=== PATIENT | male | born 1955 | race African-American/Black ===

== ENCOUNTER 2018-04-02 15:05 | Emergency (ER) | payer SELFPAY ==
--- NOTE | 2018-04-02 17:58 | Emergency Department Report ---
ED General Adult HPI - General Chief complaint: Abdominal Pain Stated complaint: CONSTIPATION Time Seen by Provider: 04/02/18 17:57 Source: patient, EMS Mode of arrival: Stretcher Limitations: No Limitations - History of Present Illness Initial comments: Patient is a 63-year-old male past medical history of chronic lymp leukemia who presents with abdominal pain and distention. Patient is 1013 for major depressive disorder. Patient has had constipation however he's been having abdominal distention and tenderness. He states he has had a bowel movement in some time. Sensation says pain is an achy type of pain located diffusely throughout his abdomen nothing makes the pain better and nothing makes pain worse. Patient states that he hasn't been able to urinate. He denies having any nausea or vomiting. - Related Data Previous Rx's Medication Instructions Recorded Last Taken Type Bisacodyl [Dulcolax tab] 10 mg PO DAILY #20 tablet 04/03/18 Unknown Rx Magnesium Citrate [Citrate of 296 ml PO ONCE #1 solution 04/03/18 Unknown Rx Magnesia] Allergies Allergy/AdvReac Type Severity Reaction Status Date / Time No Known Allergies Allergy Unverified 04/02/18 17:47 ED Review of Systems ROS: Stated complaint: CONSTIPATION Other details as noted in HPI Constitutional: denies: chills, fever Eyes: denies: eye pain, eye discharge, vision change ENT: denies: ear pain, throat pain Respiratory: denies: cough, shortness of breath, wheezing Cardiovascular: denies: chest pain, palpitations Endocrine: no symptoms reported Gastrointestinal: abdominal pain, constipation. denies: nausea, diarrhea Genitourinary: other (decrease in urination). denies: urgency, dysuria Musculoskeletal: denies: back pain, joint swelling, arthralgia Skin: denies: rash, lesions Neurological: denies: headache, weakness, paresthesias Psychiatric: denies: anxiety, depression Hematological/Lymphatic: denies: easy bleeding, easy bruising ED Past Medical Hx - Past Medical History Previous Medical History?: No - Surgical History Past Surgical History?: No - Social History Smoking Status: Former Smoker Substance Use Type: None - Medications Home Medications: Home Medications Medication Instructions Recorded Confirmed Last Taken Type Bisacodyl [Dulcolax tab] 10 mg PO DAILY #20 tablet 04/03/18 Unknown Rx Magnesium Citrate [Citrate of 296 ml PO ONCE #1 solution 04/03/18 Unknown Rx Magnesia] ED Physical Exam - General Limitations: No Limitations General appearance: alert, in no apparent distress - Head Head exam: Present: atraumatic, normocephalic - Eye Eye exam: Present: normal appearance - ENT ENT exam: Present: mucous membranes moist - Neck Neck exam: Present: normal inspection - Respiratory Respiratory exam: Present: normal lung sounds bilaterally. Absent: respiratory distress - Cardiovascular Cardiovascular Exam: Present: regular rate, normal rhythm. Absent: systolic murmur, diastolic murmur, rubs, gallop - GI/Abdominal GI/Abdominal exam: Present: distended, tenderness - Rectal Rectal exam: Present: deferred - Extremities Exam Extremities exam: Present: normal inspection - Back Exam Back exam: Present: normal inspection - Neurological Exam Neurological exam: Present: alert, oriented X3 - Psychiatric Psychiatric exam: Present: other (blunted affect ) - Skin Skin exam: Present: warm, dry, intact, normal color. Absent: rash ED Course Vital Signs 04/02/18 17:47 Temperature 98.3 F Pulse Rate 66 Respiratory 16 Rate Blood Pressure 118/78 O2 Sat by Pulse 98 Oximetry ED Medical Decision Making - Lab Data Result diagrams: 04/02/18 18:08 04/02/18 18:08 Lab Results 04/02/18 04/02/18 Range/Units 18:08 18:08 WBC 13.3 H (4.5-11.0) K/mm3 RBC 3.62 L (3.65-5.03) M/mm3 Hgb 11.1 L (11.8-15.2) gm/dl Hct 32.4 L (35.5-45.6) % MCV 90 (84-94) fl MCH 31 (28-32) pg MCHC 34 (32-34) % RDW 13.9 (13.2-15.2) % Plt Count 118 L (140-440) K/mm3 Lymph % (Auto) Control Board Operator Lymph # Control Board Operator Seg Neutrophils % Control Board Operator Sodium 127 L (137-145) mmol/L Potassium 4.0 (3.6-5.0) mmol/L Chloride 90.9 L (98-107) mmol/L Carbon Dioxide 20 L (22-30) mmol/L Anion Gap 20 mmol/L BUN 12 (9-20) mg/dL Creatinine 0.4 L (0.8-1.5) mg/dL Estimated GFR > 60 ml/min BUN/Creatinine Ratio 30 % Glucose 118 H (75-100) mg/dL Calcium 9.0 (8.4-10.2) mg/dL Total Bilirubin 0.70 (0.1-1.2) mg/dL AST 13 (5-40) units/L ALT 23 (7-56) units/L Alkaline Phosphatase 81 (35-129) units/L Total Protein 6.5 (6.3-8.2) g/dL Albumin 4.2 (3.9-5) g/dL Albumin/Globulin Ratio 1.8 % Lipase 36 (13-60) units/L - Radiology Data Radiology results: report reviewed, image reviewed CT scan: Shows significant fecal impaction and constipation. - Medical Decision Making Chief medical diagnosis: Constipation Differential medical diagnosis: Appendicitis, ruptured viscus I will get CBC, CMP, CT scan, IV pain medicine CT scan is consistent with constipation PATIENT Kim tray and I'll give patient and I will give patient laxatives. Critical care attestation.: If time is entered above; I have spent that time in minutes in the direct care of this critically ill patient, excluding procedure time. ED Disposition Clinical Impression: Abdominal pain Qualifiers: Abdominal location: generalized Qualified Code(s): R10.84 - Generalized abdominal pain Constipation Qualifiers: Constipation type: unspecified constipation type Qualified Code(s): K59.00 - Constipation, unspecified Disposition: DC-01 TO HOME OR SELFCARE Is pt being admited?: No Does the pt Need Aspirin: No Condition: Stable Instructions: Constipation (ED), High Fiber Diet (ED) Prescriptions: Bisacodyl [Dulcolax tab] 10 mg PO DAILY #20 tablet Magnesium Citrate [Citrate of Magnesia] 296 ml PO ONCE #1 solution Referrals: PRIMARY CARE, [Primary Care Provider] - 3-5 Days
[2018-04-02 18:33] LABS: Hematocrit 32.4 % (35.5-45.6); Hemoglobin 11.1 gm/dl (11.8-15.2); Mean Corpuscular HGB Conc 34 % (32-34); Mean Corpuscular Hemoglobin 31 pg (28-32); Mean Corpuscular Volume 90 fl (84-94); Platelet Count 118 K/mm3 (140-440); Red Blood Count 3.62 M/mm3 (3.65-5.03); Red Cell Distribution Width 13.9 % (13.2-15.2)
[2018-04-02 18:58] LABS: Alanine Aminotransferase 23 units/L (7-56); Albumin 4.2 g/dL (3.9-5); BUN/Creatinine Ratio 30; Blood Urea Nitrogen 12 mg/dL (9-20); Hemolysis Index 2
[2018-04-02 19:41] LABS: Lipase 36 units/L (13-60)
[2018-04-02] MEDS ORDERED: TORADOL IV ONE (19:51)
[2018-04-02 20:08] LABS: Total Cells Counted 100
[2018-04-02 20:09] LABS: Basophils % (Manual) 0 % (0.0-1.8); Platelet Estimate Consistent w Auto; RBC Morphology Normal
[2018-04-02] MEDS ORDERED: REGLAN IV ONE (20:38)
[2018-04-02] MEDS ORDERED: BENADRYL IV ONE (20:38)
[2018-04-02] MEDS: NACL 0.9% 250 ML ONE ×2 (21:32→23:53)
--- NOTE | 2018-04-02 22:36 | Cat Scan Report ---
FINAL REPORT EXAM: CT ABDOMEN PELVIS W CON HISTORY: abdominal distension and abdominal tenderness TECHNIQUE: Standard enhanced CT of the abdomen and pelvis. Coronal and sagittal reconstruction was also performed. Delayed imaging through the abdomen and pelvis was a performed. Contrast: 100 mL Omnipaque 300 given IV. PRIORS: None. FINDINGS: There is significant stool in the ascending colon and rectum which can be associated with fecal impaction. There is redundancy of the colon with mild distension, however, and not abnormal in appearance. Within the abdomen, the liver multiple tiny subcentimeter hypodensities are scattered in the liver. These are likely cysts but too small to characterize. The spleen, pancreas, gallbladder, adrenal glands, and right kidney are unremarkable. There is an exophytic 1.6 cm hypodense rounded focus off the midpole left kidney, likely a cyst. No evidence for retroperitoneal or pelvic lymphadenopathy is seen. The small bowel loops have normal caliber. No soft tissue mass, fluid collection, inflammatory change, or free air is seen within the abdomen or pelvis. The appendix is not visualized. Moderate calcification of the aorta is seen. Within the pelvis, the bladder is overly distended extending to the level of the umbilicus. The prostate is normal. No evidence for mass or lymphadenopathy is seen in the pelvis. Images through the upper abdomen include the lung bases which are expanded and clear. There is an 11 mm calcified granuloma in the right lateral costophrenic angle. Bony structures show no focal abnormalities and are intact. IMPRESSION: 1. Over distention of the urinary bladder extending to the level of the umbilicus. Etiology is uncertain. 2. Significant stool in the rectum which can be associated with fecal impaction. There is also significant stool in the ascending colon. 3. Cyst in the left kidney 4. Hypodensities in the liver, likely cysts.
[2018-04-03] MEDS ORDERED: NACL 0.9% 250ML 250 ML ONE (00:01)
[2018-04-03] MEDS ORDERED: CITRATE OF MAGNESIA PO ONE (00:09)
[2018-04-03] MEDS ORDERED: DULCOLAX PO ONE (00:12)
[2018-04-03] MEDS ORDERED: NACL 0.9% 250ML 250 ML IV ONE (02:38)
[2018-04-03 03:47] VITALS: BP 118/73
== END 2018-04-03 03:46 | disposition home or self-care (01) ==
LOC: ED 15:05
DX: K59.00 Constipation, unspecified (principal); Z87.891 Personal history of nicotine dependence
CPT/HCPCS: 36415; 74177; 80053; 83690; 85007; 85025; 96374; 96375; 99284; J1200; J1885; J7050; Q9967; J2765

== ENCOUNTER 2018-04-06 19:32 | Inpatient (IN) | payer OTHER ==
[2018-04-06] MEDS ORDERED: ZOFRAN IV ONE (19:51)
[2018-04-06] MEDS ORDERED: NACL 0.9% 500 ML 500 ML IV ONE (19:51)
[2018-04-06] MEDS ORDERED: PROTONIX IV ONE (19:51)
--- NOTE | 2018-04-06 19:51 | Emergency Department Report ---
ED Abdominal Pain HPI - General Chief Complaint: Abdominal Pain Stated Complaint: ABD PAIN Time Seen by Provider: 04/06/18 19:47 Source: patient, EMS Mode of arrival: Stretcher Limitations: Language Barrier - History of Present Illness Initial Comments: Patient complain of abdominal pain and diarrhea. He denies any nausea or vomiting. He also has loss of appetite. MD Complaint: abdominal pain -: Gradual Location: diffuse Radiation: none Migration to: no migration Severity: severe Severity scale (0 -10): 8 Quality: cramping, sharp Consistency: constant Improves With: nothing Worsens With: nothing Associated Symptoms: diarrhea. denies: nausea, vomiting, fever, chills - Related Data Home Medications Medication Instructions Recorded Confirmed Last Taken Colace Clear 200 mg PO DAILY 04/06/18 04/06/18 Unknown Ibuprofen 600 mg PO DAILY 04/06/18 04/06/18 Unknown Imbruvica 420 mg PO DAILY 04/06/18 04/06/18 Unknown Naproxen 500 mg PO BID 04/06/18 04/06/18 Unknown Tamsulosin 0.4 mg PO DAILY 04/06/18 04/06/18 Unknown Zoloft 50 mg PO DAILY 04/06/18 04/06/18 Unknown traZODone 150 mg PO HS 04/06/18 04/06/18 Unknown Allergies Allergy/AdvReac Type Severity Reaction Status Date / Time No Known Allergies Allergy Unverified 04/02/18 17:47 ED Review of Systems ROS: Stated complaint: ABD PAIN Other details as noted in HPI Comment: All other systems reviewed and negative Constitutional: denies: chills, fever Eyes: denies: eye pain ENT: denies: ear pain, throat pain Respiratory: denies: cough, shortness of breath, SOB with exertion Cardiovascular: denies: chest pain, palpitations Endocrine: no symptoms reported Gastrointestinal: abdominal pain, diarrhea. denies: nausea, vomiting, hematochezia Genitourinary: denies: urgency, dysuria Musculoskeletal: denies: back pain, joint swelling Skin: denies: rash, lesions Neurological: denies: headache, weakness, numbness Psychiatric: denies: anxiety, depression Hematological/Lymphatic: denies: easy bleeding, easy bruising ED Past Medical Hx - Social History Smoking Status: Former Smoker Substance Use Type: None - Medications Home Medications: Home Medications Medication Instructions Recorded Confirmed Last Taken Type Colace Clear 200 mg PO DAILY 04/06/18 04/06/18 Unknown History Ibuprofen 600 mg PO DAILY 04/06/18 04/06/18 Unknown History Imbruvica 420 mg PO DAILY 04/06/18 04/06/18 Unknown History Naproxen 500 mg PO BID 04/06/18 04/06/18 Unknown History Tamsulosin 0.4 mg PO DAILY 04/06/18 04/06/18 Unknown History Zoloft 50 mg PO DAILY 04/06/18 04/06/18 Unknown History traZODone 150 mg PO HS 04/06/18 04/06/18 Unknown History ED Physical Exam - General Limitations: No Limitations General appearance: alert, in no apparent distress - Head Head exam: Present: atraumatic, normocephalic, normal inspection - Eye Eye exam: Present: normal appearance, PERRL, EOMI Pupils: Present: normal accommodation - ENT ENT exam: Present: normal exam, normal orophraynx, mucous membranes moist - Neck Neck exam: Present: normal inspection, full ROM. Absent: tenderness - Respiratory Respiratory exam: Present: normal lung sounds bilaterally. Absent: respiratory distress, wheezes, rales, rhonchi, stridor - Cardiovascular Cardiovascular Exam: Present: regular rate, normal rhythm, normal heart sounds - GI/Abdominal GI/Abdominal exam: Present: soft, tenderness, guarding, rebound, hyperactive bowel sounds. Absent: distended - Rectal Rectal exam: Present: heme (-) stool, other ([place] was Ms. Lisbeth RN.) - Extremities Exam Extremities exam: Present: normal inspection, full ROM, normal capillary refill - Back Exam Back exam: Present: normal inspection, full ROM. Absent: tenderness - Neurological Exam Neurological exam: Present: alert, oriented X3, CN II-XII intact - Psychiatric Psychiatric exam: Present: normal affect, normal mood - Skin Skin exam: Present: warm, dry, intact, normal color. Absent: rash ED Course Vital Signs 04/06/18 04/06/18 04/06/18 19:28 19:30 19:45 Temperature Pulse Rate 83 85 86 Respiratory 23 17 24 Rate Blood Pressure 105/67 109/69 O2 Sat by Pulse 98 97 97 Oximetry 04/06/18 04/06/18 04/06/18 19:55 20:00 20:15 Temperature 98.4 F Pulse Rate 82 81 79 Respiratory 18 17 11 L Rate Blood Pressure 105/67 109/69 102/69 O2 Sat by Pulse 98 96 97 Oximetry 04/06/18 04/06/18 04/06/18 20:30 20:46 21:00 Temperature Pulse Rate 77 79 73 Respiratory 15 20 17 Rate Blood Pressure 102/69 102/69 122/71 O2 Sat by Pulse 97 98 99 Oximetry 04/06/18 04/06/18 04/06/18 21:15 21:30 21:45 Temperature Pulse Rate 78 77 79 Respiratory 14 14 17 Rate Blood Pressure 122/68 122/68 106/70 O2 Sat by Pulse 98 97 98 Oximetry 04/06/18 04/06/18 04/06/18 22:00 22:15 22:30 Temperature Pulse Rate 77 78 76 Respiratory 17 15 11 L Rate Blood Pressure 115/65 108/65 105/66 O2 Sat by Pulse 97 98 97 Oximetry 04/06/18 04/06/18 04/06/18 22:35 22:45 22:54 Temperature Pulse Rate 78 81 78 Respiratory 10 L 14 13 Rate Blood Pressure 105/66 107/72 105/66 O2 Sat by Pulse 98 98 98 Oximetry 04/06/18 04/06/18 04/06/18 23:00 23:15 23:30 Temperature Pulse Rate 82 79 89 Respiratory 18 14 13 Rate Blood Pressure 105/66 120/68 120/68 O2 Sat by Pulse 97 96 99 Oximetry 04/06/18 04/07/18 04/07/18 23:45 00:00 00:15 Temperature Pulse Rate 87 82 Respiratory 21 21 14 Rate Blood Pressure 106/68 122/54 123/69 O2 Sat by Pulse 98 97 98 Oximetry 04/07/18 04/07/18 04/07/18 00:30 00:45 01:00 Temperature Pulse Rate 80 77 80 Respiratory 15 15 18 Rate Blood Pressure 113/68 114/70 114/68 O2 Sat by Pulse 98 97 98 Oximetry 04/07/18 04/07/18 04/07/18 01:15 01:30 02:20 Temperature Pulse Rate 71 78 Respiratory 13 20 Rate Blood Pressure 103/62 114/68 116/72 O2 Sat by Pulse 94 99 98 Oximetry 04/07/18 04/07/18 04/07/18 02:30 02:46 03:00 Temperature Pulse Rate 83 89 81 Respiratory 24 25 H 22 Rate Blood Pressure 97/63 97/63 97/63 O2 Sat by Pulse 98 96 98 Oximetry 04/07/18 04/07/18 04/07/18 03:16 03:30 03:46 Temperature Pulse Rate 81 73 71 Respiratory 26 H 14 16 Rate Blood Pressure 97/63 97/63 97/63 O2 Sat by Pulse 98 98 95 Oximetry 04/07/18 04/07/18 04/07/18 04:00 04:16 04:30 Temperature Pulse Rate 83 77 74 Respiratory 21 15 16 Rate Blood Pressure 116/69 116/69 116/69 O2 Sat by Pulse 98 98 97 Oximetry 04/07/18 04/07/18 04/07/18 04:46 05:00 05:16 Temperature Pulse Rate 75 74 76 Respiratory 16 15 13 Rate Blood Pressure 116/69 105/61 105/61 O2 Sat by Pulse 97 95 96 Oximetry 04/07/18 04/07/18 04/07/18 05:30 05:46 06:00 Temperature Pulse Rate 83 81 76 Respiratory 19 22 21 Rate Blood Pressure 105/61 105/61 96/69 O2 Sat by Pulse 98 98 98 Oximetry 04/07/18 04/07/18 06:10 06:20 Temperature Pulse Rate 75 80 Respiratory 20 25 H Rate Blood Pressure 96/69 96/69 O2 Sat by Pulse 98 96 Oximetry - Reevaluation(s) Reevaluation #1: 04/07/18 02:49 Patient care was transitioned to Dr Mcbride at shift change pending CT scan of abdomen and pelvis result prior to admission. ED Medical Decision Making - Lab Data Result diagrams: 04/06/18 20:05 04/06/18 20:05 - EKG Data -: EKG Interpreted by Nh EKG shows normal: sinus rhythm Rate: normal (78) - EKG Data When compared to previous EKG there are: previous EKG unavailable Interpretation: nonspecific ST-T wave rebekah, other (No STEMI) - Radiology Data Radiology results: report reviewed, image reviewed - Medical Decision Making Abdominal pain Critical care attestation.: If time is entered above; I have spent that time in minutes in the direct care of this critically ill patient, excluding procedure time. ED Disposition Clinical Impression: Acute hyponatremia, Urinary retention Abdominal pain Qualifiers: Abdominal location: generalized Qualified Code(s): R10.84 - Generalized abdominal pain Diarrhea Qualifiers: Diarrhea type: unspecified type Qualified Code(s): R19.7 - Diarrhea, unspecified Disposition: DC-09 OP ADMIT IP TO THIS HOSP Is pt being admited?: Yes Does the pt Need Aspirin: No Condition: Stable
[2018-04-06 20:27] LABS: Hematocrit 30.4 % (35.5-45.6); Mean Corpuscular HGB Conc 33 % (32-34); Mean Corpuscular Hemoglobin 30 pg (28-32); Mean Corpuscular Volume 91 fl (84-94); Platelet Count 116 K/mm3 (140-440); Red Blood Count 3.35 M/mm3 (3.65-5.03); Red Cell Distribution Width 13.8 % (13.2-15.2)
[2018-04-06 20:35] LABS: INR 0.94 (0.87-1.13)
[2018-04-06 20:47] LABS: Alanine Aminotransferase 13 units/L (7-56); Albumin 3.7 g/dL (3.9-5); BUN/Creatinine Ratio 25; Blood Urea Nitrogen 20 mg/dL (9-20); Hemolysis Index 7; Lipase 46 units/L (13-60)
[2018-04-06 21:05] LABS: Bilirubin,Direct < 0.2 mg/dL (0-0.2)
[2018-04-06] MEDS ORDERED: SUBLIMAZE IV ONE (21:34)
[2018-04-06 21:55] LABS: Amorphous Crystals,Urine Few; Bilirubin,Urine NEG (Negative); Blood,Urine LG (Negative); Color,Urine Yellow (Yellow); Mucus,Urine FEW /HPF; Protein,Urine <15 mg/dL mg/dL (Negative); Urobilinogen,Urine < 2.0 mg/dL (<2.0)
[2018-04-06 22:04] LABS: Anisocytosis 1+; Basophils % (Manual) 0 % (0.0-1.8); Eosinophils % (Manual) 0 % (0.0-4.3); Poikilocytosis 1+; Total Cells Counted 100
[2018-04-06 22:05] LABS: Platelet Estimate Consistent w Auto
[2018-04-06] MEDS ORDERED: NACL 0.9% 1000 ML 1,000 ML IV ONE (23:08)
--- NOTE | 2018-04-06 23:15 | XRay Report ---
FINAL REPORT PROCEDURE: XR ABDOMEN 1V AP TECHNIQUE: Abdominal radiograph, single supine AP view. HISTORY: Abdominal Pain COMPARISON: No prior studies are available for comparison. FINDINGS: A large soft tissue density is noted in the pelvis and lower abdomen midline. Multiple gas-filled nondistended loops of small and large bowel are noted. There are no abnormal radiopaque densities. IMPRESSION: Large soft tissue density mass in the central pelvis and lower abdomen most likely represents grossly distended urinary bladder. Nonspecific intestinal gas pattern
--- NOTE | 2018-04-06 23:17 | XRay Report ---
FINAL REPORT PROCEDURE: XR CHEST 1V AP TECHNIQUE: Chest radiograph anteroposterior view. CPT 36300 HISTORY: Abdominal Pain COMPARISON: No prior studies are available for comparison. FINDINGS: Heart: Normal. Mediastinum/Vessels: Normal. Lungs/Pleural space: Normal. Bony thorax: No acute osseous abnormality. Life support devices: None. IMPRESSION: No acute cardiopulmonary abnormality.
[2018-04-07] MEDS ORDERED: NACL 0.9% 500 ML 500 ML ONE (01:28)
[2018-04-07] MEDS ORDERED: NACL 0.9% 500 ML 500 ML IV ONE (01:36)
--- NOTE | 2018-04-07 02:50 | Cat Scan Report ---
FINAL REPORT PROCEDURE: CT ABDOMEN PELVIS W CON TECHNIQUE: Computerized axial tomography of the abdomen and pelvis was performed after the IV injection of iodinated nonionic contrast. Oral contrast. HISTORY: Abdominal pain. COMPARISON: CT scan dated 04/02/2018. FINDINGS: Visualized lower thorax: Mild cardiomegaly. Mild three-vessel coronary artery disease. Liver: Subcentimeter areas of low attenuation in the liver, predominantly left lobe as on prior study.. Spleen: Normal size and attenuation. Gallbladder and biliary system: Normal. Pancreas: Normal. Adrenals: Normal. Kidneys: Exophytic 15 mm low-attenuation lesion off the midpole of the left kidney. Mild bilateral hydronephrosis. GI tract: Subtle outpouching of the gastroesophageal junction. Thickening of the distal stomach wall. Oral contrast seen to the rectum. Normal appendix. Colon is moderately distended with stool. Mild thickening of the rectosigmoid colon. Lymph nodes and mesentery: Subcentimeter pre cardiac, retroperitoneal, and a few mesenteric lymph nodes. Vasculature: Moderate atherosclerosis. Bladder: Bladder is distended to above the level of the umbilicus. Reproductive organs: Normal. Peritoneum: No free fluid. Musculoskeletal structures: Mild osteopenia. Multilevel disc space narrowing and osteophytes. Slight wedge compression at the thoracic lumbar junction. Other: Fat filled umbilical hernia. IMPRESSION: Bladder is significantly distended as on prior study, consider neurogenic bladder and/or bladder outlet obstruction. Mild bilateral hydronephrosis, may be related to bladder distension. Consider attention on followup exam. Cardiomegaly. Three-vessel coronary artery disease. Low-attenuation liver lesions unchanged. Low-attenuation renal lesions, may represent cysts. Consider confirmation with renal ultrasound if there is continued clinical concern. Subtle outpouching of the gastroesophageal junction, consider small diverticulum or possibly ulceration. Thickening of the distal stomach wall, consider mild gastritis. Consider fluoroscopic examination or endoscopy if there is continued clinical concern. Colon is moderately distended with stool, consider constipation and/or fecal impaction. Mild thickening of the rectosigmoid colon, consider mild colitis/proctitis. Fat filled umbilical hernia.
[2018-04-07] MEDS ORDERED: LEVAQUIN 750MG/150ML 750 MG/150 ML BAG IV ONE (04:53)
[2018-04-07] MEDS ORDERED: FLAGYL 500 MG/100 ML 500 MG/100 ML BAG IV SCH (05:00)
[2018-04-07] MEDS: HEPARIN SUB-Q SCH ×3 (06:05→23:44)
--- NOTE | 2018-04-07 09:17 | History and Physical Report ---
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 Patient said the diarrhea is massive couldn't count because he is using diaper. Patient is also complaining abdominal bloating, abdominal pain. Pain is on the mid abdomen. Squeezing type, 10 out of 10 in intensity, with no radiation, no aggravating or alleviating factors identified. Patient said he took antibiotics after the start of area with some relief. Patient didn't have any recent travel to [place] ([place] Patient said he has fever. REVIEW OF SYSTEMS: GENERAL: no weight change, no fatigue, no fever HEAD: no head ache EYES: no blurry vision, no acute visual loss EARS: no hearing loss, no discharge, no earache NOSE: no stuffiness, no sneezing, no discharge MOUTH, THROAT AND NECK: no bleeding gums, no sore throat, no swollen neck CARDIAC: no palpitations, no dyspnea on exertion, no orthopnea, no PND, no edema , no chest pain RESPIRATORY: no shortness of breath, no wheeze, no cough, no sputum, no hemoptysis, no asthma GI: As stated in the HPI URINARY: no change in frequency, no urgency, no polyuria, no hematuria, no incontinence MUSCULOSKELETAL: no muscle weakness, no pain, no joint stiffness NEUROLOGIC: no loss of sensation/numbness, no tingling, no tremors, no weakness/ paralysis HEMATOLOGIC: no anemia, no easy bruising SKIN: no rashes ENDOCRINE: no heat/cold intolerance, no polyuria, no polydipsia, no thyroid problems, no diabetes PSYCHIATRIC: no anxiety, no depression, no suicidal ideations Past History Past Medical History: No medical history Past Surgical History: No surgical history Social history: full code. denies: smoking, alcohol abuse, prescription drug abuse, IV drug use Family history: no significant family history Medications and Allergies Allergies Allergy/AdvReac Type Severity Reaction Status Date / Time No Known Allergies Allergy Unverified 04/02/18 17:47 Home Medications Medication Instructions Recorded Confirmed Last Taken Type Colace Clear 200 mg PO DAILY 04/06/18 04/06/18 Unknown History Ibuprofen 600 mg PO DAILY 04/06/18 04/06/18 Unknown History Imbruvica 420 mg PO DAILY 04/06/18 04/06/18 Unknown History Naproxen 500 mg PO BID 04/06/18 04/06/18 Unknown History Tamsulosin 0.4 mg PO DAILY 04/06/18 04/06/18 Unknown History Zoloft 50 mg PO DAILY 04/06/18 04/06/18 Unknown History traZODone 150 mg PO HS 04/06/18 04/06/18 Unknown History Active Meds: Active Medications Heparin Sodium (Porcine) (Heparin) 5,000 unit SUB-Q Q8HR LUCI Last Admin: 04/07/18 06:05 Dose: 5,000 unit Exam - Constitutional Vitals: Temp Pulse Resp BP Pulse Ox 98.2 F 74 18 102/59 98 04/07/18 06:59 04/07/18 06:59 04/07/18 06:59 04/07/18 06:59 04/07/18 06:59 Results - Labs CBC & Chem 7: 04/06/18 20:05 04/06/18 20:05 Labs: Laboratory Last Values WBC 11.0 K/mm3 (4.5-11.0) 04/06/18 20:05 RBC 3.35 M/mm3 (3.65-5.03) L 04/06/18 20:05 Hgb 10.0 gm/dl (11.8-15.2) L 04/06/18 20:05 Hct 30.4 % (35.5-45.6) L 04/06/18 20:05 MCV 91 fl (84-94) 04/06/18 20:05 MCH 30 pg (28-32) 04/06/18 20:05 MCHC 33 % (32-34) 04/06/18 20:05 RDW 13.8 % (13.2-15.2) 04/06/18 20:05 Plt Count 116 K/mm3 (140-440) L 04/06/18 20:05 Lymph # Video Game Repair Technician 04/06/18 20:05 Add Manual Diff Complete 04/06/18 20:05 Total Counted 100 04/06/18 20:05 Seg Neuts % (Manual) 43.0 % (40.0-70.0) 04/06/18 20:05 Band Neutrophils % 0 % 04/06/18 20:05 Lymphocytes % (Manual) 55.0 % (13.4-35.0) H 04/06/18 20:05 Reactive Lymphs % (Man) 0 % 04/06/18 20:05 Monocytes % (Manual) 2.0 % (0.0-7.3) 04/06/18 20:05 Eosinophils % (Manual) 0 % (0.0-4.3) 04/06/18 20:05 Basophils % (Manual) 0 % (0.0-1.8) 04/06/18 20:05 Metamyelocytes % 0 % 04/06/18 20:05 Myelocytes % 0 % 04/06/18 20:05 Promyelocytes % 0 % 04/06/18 20:05 Blast Cells % 0 % 04/06/18 20:05 Nucleated RBC % Not Reportable 04/06/18 20:05 Seg Neutrophils # Man 4.7 K/mm3 (1.8-7.7) 04/06/18 20:05 Band Neutrophils # 0.0 K/mm3 04/06/18 20:05 Lymphocytes # (Manual) 6.1 K/mm3 (1.2-5.4) H 04/06/18 20:05 Abs React Lymphs (Man) 0.0 K/mm3 04/06/18 20:05 Monocytes # (Manual) 0.2 K/mm3 (0.0-0.8) 04/06/18 20:05 Eosinophils # (Manual) 0.0 K/mm3 (0.0-0.4) 04/06/18 20:05 Basophils # (Manual) 0.0 K/mm3 (0.0-0.1) 04/06/18 20:05 Metamyelocytes # 0.0 K/mm3 04/06/18 20:05 Myelocytes # 0.0 K/mm3 04/06/18 20:05 Promyelocytes # 0.0 K/mm3 04/06/18 20:05 Blast Cells # 0.0 K/mm3 04/06/18 20:05 WBC Morphology Not Reportable 04/06/18 20:05 Hypersegmented Neuts Not Reportable 04/06/18 20:05 Hyposegmented Neuts Not Reportable 04/06/18 20:05 Hypogranular Neuts Not Reportable 04/06/18 20:05 Smudge Cells Not Reportable 04/06/18 20:05 Toxic Granulation Not Reportable 04/06/18 20:05 Toxic Vacuolation Not Reportable 04/06/18 20:05 Dohle Bodies Not Reportable 04/06/18 20:05 Pelger-Huet Anomaly Not Reportable 04/06/18 20:05 Rosario Rods Not Reportable 04/06/18 20:05 Platelet Estimate Consistent w auto 04/06/18 20:05 Clumped Platelets Not Reportable 04/06/18 20:05 Plt Clumps, EDTA Not Reportable 04/06/18 20:05 Large Platelets Not Reportable 04/06/18 20:05 Giant Platelets Not Reportable 04/06/18 20:05 Platelet Satelliting Not Reportable 04/06/18 20:05 Plt Morphology Comment Not Reportable 04/06/18 20:05 RBC Morphology Not Reportable 04/06/18 20:05 Dimorphic RBCs Not Reportable 04/06/18 20:05 Polychromasia Not Reportable 04/06/18 20:05 Hypochromasia Not Reportable 04/06/18 20:05 Poikilocytosis 1+ 04/06/18 20:05 Anisocytosis 1+ 04/06/18 20:05 Microcytosis Not Reportable 04/06/18 20:05 Macrocytosis Not Reportable 04/06/18 20:05 Spherocytes Not Reportable 04/06/18 20:05 Pappenheimer Bodies Not Reportable 04/06/18 20:05 Sickle Cells Not Reportable 04/06/18 20:05 Target Cells Not Reportable 04/06/18 20:05 Tear Drop Cells Not Reportable 04/06/18 20:05 Ovalocytes Not Reportable 04/06/18 20:05 Helmet Cells Not Reportable 04/06/18 20:05 [place] Bodies Not Reportable 04/06/18 20:05 [place] Rings Not Reportable 04/06/18 20:05 Sahil Cells Not Reportable 04/06/18 20:05 Bite Cells Not Reportable 04/06/18 20:05 Crenated Cell Not Reportable 04/06/18 20:05 Elliptocytes Not Reportable 04/06/18 20:05 Acanthocytes (Spur) Not Reportable 04/06/18 20:05 Rouleaux Not Reportable 04/06/18 20:05 Hemoglobin C Crystals Not Reportable 04/06/18 20:05 Schistocytes Not Reportable 04/06/18 20:05 Malaria parasites Not Reportable 04/06/18 20:05 Tristan Bodies Not Reportable 04/06/18 20:05 Hem Pathologist Commnt No 04/06/18 20:05 PT 13.1 Sec. (12.2-14.9) 04/06/18 20:05 INR 0.94 (0.87-1.13) 04/06/18 20:05 Sodium 126 mmol/L (137-145) L 04/06/18 20:05 Potassium 3.9 mmol/L (3.6-5.0) 04/06/18 20:05 Chloride 87.7 mmol/L (98-107) L 04/06/18 20:05 Carbon Dioxide 21 mmol/L (22-30) L 04/06/18 20:05 Anion Gap 21 mmol/L 04/06/18 20:05 BUN 20 mg/dL (9-20) 04/06/18 20:05 Creatinine 0.8 mg/dL (0.8-1.5) D 04/06/18 20:05 Estimated GFR > 60 ml/min 04/06/18 20:05 BUN/Creatinine Ratio 25 % 04/06/18 20:05 Glucose 119 mg/dL (75-100) H 04/06/18 20:05 Calcium 9.0 mg/dL (8.4-10.2) 04/06/18 20:05 Total Bilirubin 0.50 mg/dL (0.1-1.2) 04/06/18 20:05 Direct Bilirubin < 0.2 mg/dL (0-0.2) 04/06/18 20:05 Indirect Bilirubin 0.3 mg/dL 04/06/18 20:05 AST 12 units/L (5-40) 04/06/18 20:05 ALT 13 units/L (7-56) 04/06/18 20:05 Alkaline Phosphatase 74 units/L (35-129) 04/06/18 20:05 Troponin T < 0.010 ng/mL (0.00-0.029) 04/06/18 21:38 NT-Pro-B Natriuret Pep 44.32 pg/mL (0-900) 04/06/18 20:05 Total Protein 6.2 g/dL (6.3-8.2) L 04/06/18 20:05 Albumin 3.7 g/dL (3.9-5) L 04/06/18 20:05 Albumin/Globulin Ratio 1.5 % 04/06/18 20:05 Amylase 54 units/L (27-131) 04/06/18 20:05 Lipase 46 units/L (13-60) 04/06/18 20:05 Urine Color Yellow (Yellow) 04/06/18 21:14 Urine Turbidity Slightly-cloudy (Clear) 04/06/18 21:14 Urine pH 6.0 (5.0-7.0) 04/06/18 21:14 Ur Specific [place] 1.016 (1.003-1.030) 04/06/18 21:14 Urine Protein <15 mg/dl mg/dL (Negative) 04/06/18 21:14 Urine Glucose (UA) Neg mg/dL (Negative) 04/06/18 21:14 Urine Ketones Neg mg/dL (Negative) 04/06/18 21:14 Urine Blood Lg (Negative) 04/06/18 21:14 Urine Nitrite Neg (Negative) 04/06/18 21:14 Urine Bilirubin Neg (Negative) 04/06/18 21:14 Urine Urobilinogen < 2.0 mg/dL (<2.0) 04/06/18 21:14 Ur Leukocyte Esterase Neg (Negative) 04/06/18 21:14 Urine WBC (Auto) 4.0 /HPF (0.0-6.0) 04/06/18 21:14 Urine RBC (Auto) 37.0 /HPF (0.0-6.0) 04/06/18 21:14 U Epithel Cells (Auto) < 1.0 /HPF (0-13.0) 04/06/18 21:14 Amorphous Crystals Few 04/06/18 21:14 Urine Mucus Few /HPF 04/06/18 21:14 Assessment and Plan Assessment and plan: 39-year-old male presented to the emergency department complaining of diarrhea of one month duration. Patient is complaining of abdominal pain and nausea. CT abdomen shows colitis/prostatitis, and bladder distention Diarrhea colitis - on IV flagyl and levaquin Hyponatremia - On IV fluids Distended bladder with mild hydronephrosis ?neurogenic bladder - will catheterize him - If not possible to catheterize him we will consult Urology Hyponatremia - ON IV fluids DVT prophylaxis - heparin Advance Directives: Yes VTE prophylaxis?: Chemical Plan of care discussed with patient/family: Yes
[2018-04-07] MEDS: NACL 0.9% 1000 ML 1,000 ML IV SCH ×2 (11:25→23:44)
[2018-04-07] MEDS ORDERED: ZOFRAN IV PRN (12:01)
[2018-04-07] MEDS: FLAGYL 500 MG/100 ML 500 MG/100 ML BAG IV SCH ×2 (13:31→23:46)
--- NOTE | 2018-04-07 18:55 | Gastroenterology Consultation ---
History of Present Illness - Reason for Consult Consult date: 04/07/18 chronic diarrhea Requesting physician: THEODORE CIFUENTES - History of Present Illness The patient is a 63-year-old French man who was admitted with weight loss and apparent severe diarrhea for the past 3 months. He had lower abdominal pain and was found to have urinary retention. The patient's Irish is very minimal though he denies seeing any blood in the stool. No definite exposure to antibiotics and no recent travel. Past History Past Medical History: No medical history Past Surgical History: No surgical history Social history: full code. denies: smoking, alcohol abuse, prescription drug abuse, IV drug use Family history: no significant family history Medications and Allergies Allergies Allergy/AdvReac Type Severity Reaction Status Date / Time No Known Allergies Allergy Unverified 04/02/18 17:47 Home Medications Medication Instructions Recorded Confirmed Last Taken Type Colace Clear 200 mg PO DAILY 04/06/18 04/06/18 Unknown History Ibuprofen 600 mg PO DAILY 04/06/18 04/06/18 Unknown History Imbruvica 420 mg PO DAILY 04/06/18 04/06/18 Unknown History Naproxen 500 mg PO BID 04/06/18 04/06/18 Unknown History Tamsulosin 0.4 mg PO DAILY 04/06/18 04/06/18 Unknown History Zoloft 50 mg PO DAILY 04/06/18 04/06/18 Unknown History traZODone 150 mg PO HS 04/06/18 04/06/18 Unknown History Active Meds: Active Medications Heparin Sodium (Porcine) (Heparin) 5,000 unit SUB-Q Q8HR LUCI Last Admin: 04/07/18 13:31 Dose: 5,000 unit Levofloxacin/Dextrose (Levaquin 750mg/150ml) 750 mg in 150 mls @ 100 mls/hr IV Q24HR LUCI; Protocol Metronidazole (Flagyl 500 Mg/100 Ml) 500 mg in 100 mls @ 100 mls/hr IV Q8HR LUCI ; Protocol Last Admin: 04/07/18 13:31 Dose: 100 mls/hr Sodium Chloride (Nacl 0.9% 1000 Ml) 1,000 mls @ 125 mls/hr IV DIRECT LUCI Last Admin: 04/07/18 11:25 Dose: 125 mls/hr Ondansetron HCl (Zofran) 4 mg IV Q8H PRN PRN Reason: N/V unrelieved by Reglan Review of Systems - Review of Systems Constitutional: weight loss Eyes: no change in vision Ears, Nose, Throat: no decreased hearing, no difficulty swallowing Breasts: deferred Cardiovascular: no chest pain, no shortness of breath Respiratory: no cough, no shortness of breath Gastrointestinal: diarrhea, no abdominal pain, no nausea, no vomiting, no constipation, no hematemesis, no BRBPR, no melena, no hematochezia Rectal: no pain Male Genitourinary: deferred Musculoskeletal: no gait dysfunction, no joint pain Integumentary: no deferred, no rash, no pruritis, no jaundice Neurological: no paralysis, no weakness Psychiatric: no memory loss, no change in appetite Endocrine: no cold intolerance Hematologic/Lymphatic: no easy bruising Allergic/Immunologic: no wheezing Exam - Constitutional Vital Signs: Temp Pulse Resp BP Pulse Ox 98.5 F 81 20 126/73 98 04/07/18 12:19 04/07/18 12:19 04/07/18 12:19 04/07/18 12:19 04/07/18 12:19 General appearance: no acute distress, well-nourished - EENT Eyes: PERRL ENT: hearing intact, clear oral mucosa, dentition normal - Neck Neck: supple, normal ROM, no masses or JVD - Respiratory Respiratory effort: normal Respiratory: bilateral: CTA - Breasts Breasts: deferred - Cardiovascular Rhythm: regular Heart Sounds: Present: S1 & S2. Absent: gallop, rub Extremities: pulses intact, No edema, normal color, Full ROM - Gastrointestinal General gastrointestinal: Present: soft, non-tender, non-distended, normal bowel sounds. Absent: hepatomegaly, splenomegaly, mass Rectal Exam: deferred - Genitourinary Male Genitourinary: deferred - Integumentary Integumentary: Present: clear, warm, dry - Neurologic Neurological: alert and oriented x3 - Psychiatric Psychiatric: appropriate mood/affect, intact judgment & insight, memory intact - Labs CBC & Chem 7: 04/06/18 20:05 04/06/18 20:05 Lab Results: Laboratory Results - last 24 hr 04/06/18 04/06/18 04/06/18 20:05 20:05 20:05 WBC 11.0 RBC 3.35 L Hgb 10.0 L Hct 30.4 L MCV 91 MCH 30 MCHC 33 RDW 13.8 Plt Count 116 L Lymph # Mosquito Sprayer Add Manual Diff Complete Total Counted 100 Seg Neuts % (Manual) 43.0 Band Neutrophils % 0 Lymphocytes % (Manual) 55.0 H Reactive Lymphs % (Man) 0 Monocytes % (Manual) 2.0 Eosinophils % (Manual) 0 Basophils % (Manual) 0 Metamyelocytes % 0 Myelocytes % 0 Promyelocytes % 0 Blast Cells % 0 Nucleated RBC % Not Reportable Seg Neutrophils # Man 4.7 Band Neutrophils # 0.0 Lymphocytes # (Manual) 6.1 H Abs React Lymphs (Man) 0.0 Monocytes # (Manual) 0.2 Eosinophils # (Manual) 0.0 Basophils # (Manual) 0.0 Metamyelocytes # 0.0 Myelocytes # 0.0 Promyelocytes # 0.0 Blast Cells # 0.0 WBC Morphology Not Reportable Hypersegmented Neuts Not Reportable Hyposegmented Neuts Not Reportable Hypogranular Neuts Not Reportable Smudge Cells Not Reportable Toxic Granulation Not Reportable Toxic Vacuolation Not Reportable Dohle Bodies Not Reportable Pelger-Huet Anomaly Not Reportable Rosario Rods Not Reportable Platelet Estimate Consistent w auto Clumped Platelets Not Reportable Plt Clumps, EDTA Not Reportable Large Platelets Not Reportable Giant Platelets Not Reportable Platelet Satelliting Not Reportable Plt Morphology Comment Not Reportable RBC Morphology Not Reportable Dimorphic RBCs Not Reportable Polychromasia Not Reportable Hypochromasia Not Reportable Poikilocytosis 1+ Anisocytosis 1+ Microcytosis Not Reportable Macrocytosis Not Reportable Spherocytes Not Reportable Pappenheimer Bodies Not Reportable Sickle Cells Not Reportable Target Cells Not Reportable Tear Drop Cells Not Reportable Ovalocytes Not Reportable Helmet Cells Not Reportable [place] Bodies Not Reportable [place] Rings Not Reportable Mcdonald Cells Not Reportable Bite Cells Not Reportable Crenated Cell Not Reportable Elliptocytes Not Reportable Acanthocytes (Spur) Not Reportable Rouleaux Not Reportable Hemoglobin C Crystals Not Reportable Schistocytes Not Reportable Malaria parasites Not Reportable Tristan Bodies Not Reportable Hem Pathologist Commnt No PT 13.1 INR 0.94 Sodium 126 L Potassium 3.9 Chloride 87.7 L Carbon Dioxide 21 L Anion Gap 21 BUN 20 Creatinine 0.8 D Estimated GFR > 60 BUN/Creatinine Ratio 25 Glucose 119 H Calcium 9.0 Total Bilirubin 0.50 Direct Bilirubin < 0.2 Indirect Bilirubin 0.3 AST 12 ALT 13 Alkaline Phosphatase 74 Troponin T NT-Pro-B Natriuret Pep Total Protein 6.2 L Albumin 3.7 L Albumin/Globulin Ratio 1.5 Amylase 54 Lipase 46 Urine Color Urine Turbidity Urine pH Ur Specific [place] Urine Protein Urine Glucose (UA) Urine Ketones Urine Blood Urine Nitrite Urine Bilirubin Urine Urobilinogen Ur Leukocyte Esterase Urine WBC (Auto) Urine RBC (Auto) U Epithel Cells (Auto) Amorphous Crystals Urine Mucus 04/06/18 04/06/18 04/06/18 20:05 21:14 21:38 WBC RBC Hgb Hct MCV MCH MCHC RDW Plt Count Lymph # Add Manual Diff Total Counted Seg Neuts % (Manual) Band Neutrophils % Lymphocytes % (Manual) Reactive Lymphs % (Man) Monocytes % (Manual) Eosinophils % (Manual) Basophils % (Manual) Metamyelocytes % Myelocytes % Promyelocytes % Blast Cells % Nucleated RBC % Seg Neutrophils # Man Band Neutrophils # Lymphocytes # (Manual) Abs React Lymphs (Man) Monocytes # (Manual) Eosinophils # (Manual) Basophils # (Manual) Metamyelocytes # Myelocytes # Promyelocytes # Blast Cells # WBC Morphology Hypersegmented Neuts Hyposegmented Neuts Hypogranular Neuts Smudge Cells Toxic Granulation Toxic Vacuolation Dohle Bodies Pelger-Huet Anomaly Rosario Rods Platelet Estimate Clumped Platelets Plt Clumps, EDTA Large Platelets Giant Platelets Platelet Satelliting Plt Morphology Comment RBC Morphology Dimorphic RBCs Polychromasia Hypochromasia Poikilocytosis Anisocytosis Microcytosis Macrocytosis Spherocytes Pappenheimer Bodies Sickle Cells Target Cells Tear Drop Cells Ovalocytes Helmet Cells [place] Bodies Greig Rings Sahil Cells Bite Cells Crenated Cell Elliptocytes Acanthocytes (Spur) Rouleaux Hemoglobin C Crystals Schistocytes Malaria parasites Tristan Bodies Hem Pathologist Commnt PT INR Sodium Potassium Chloride Carbon Dioxide Anion Gap BUN Creatinine Estimated GFR BUN/Creatinine Ratio Glucose Calcium Total Bilirubin Direct Bilirubin Indirect Bilirubin AST ALT Alkaline Phosphatase Troponin T < 0.010 NT-Pro-B Natriuret Pep 44.32 Total Protein Albumin Albumin/Globulin Ratio Amylase Lipase Urine Color Yellow Urine Turbidity Slightly-cloudy Urine pH 6.0 Ur Specific [place] 1.016 Urine Protein <15 mg/dl Urine Glucose (UA) Neg Urine Ketones Neg Urine Blood Lg Urine Nitrite Neg Urine Bilirubin Neg Urine Urobilinogen < 2.0 Ur Leukocyte Esterase Neg Urine WBC (Auto) 4.0 Urine RBC (Auto) 37.0 U Epithel Cells (Auto) < 1.0 Amorphous Crystals Few Urine Mucus Few Assessment and Plan - Patient Problems (1) Urinary retention Current Visit: Yes Status: Acute (2) Diarrhea Current Visit: Yes Status: Acute Qualifiers: Diarrhea type: unspecified type Qualified Code(s): R19.7 - Diarrhea, unspecified Plan to address problem: Chronic diarrhea of uncertain origin. Rule out infectious origin which would be more probable in light of the patient's age. Studies are pending for C&S, C. difficile and parasites. He will need colonoscopy if all stool studies are negative. Thank you for asking me to see in consultation.
[2018-04-08] MEDS: FLAGYL 500 MG/100 ML 500 MG/100 ML BAG IV SCH ×3 (06:08→21:58)
[2018-04-08] MEDS: HEPARIN SUB-Q SCH ×3 (06:09→22:11)
[2018-04-08] MEDS: NACL 0.9% 1000 ML 1,000 ML IV SCH ×2 (09:10→19:23)
[2018-04-08] MEDS: LEVAQUIN 750MG/150ML 750 MG/150 ML BAG IV SCH (10:34)
--- NOTE | 2018-04-08 10:40 | Gastroenterology Progress Note ---
Assessment and Plan - Patient Problems (1) Urinary retention Current Visit: Yes Status: Acute (2) Diarrhea Current Visit: Yes Status: Acute Qualifiers: Diarrhea type: unspecified type Qualified Code(s): R19.7 - Diarrhea, unspecified Plan to address problem: Improving clinically on Cipro and Flagyl. I am not certain that stool studies were actually done, however. Dr. Daniel has obtained history that the patient was treated recently with antibiotics. C. diff should be excluded in this setting. Subjective Date of service: 04/08/18 Principal diagnosis: diarrhea Interval history: The patient reports feeling better overnight with less diarrhea and abdominal pain. Objective - Constitutional Vitals: Temp Pulse Resp BP Pulse Ox 99.1 F 74 16 118/75 98 04/08/18 05:26 04/08/18 05:26 04/08/18 05:26 04/08/18 05:26 04/08/18 05:26 General appearance: no acute distress - EENT ENT: hearing intact, clear oral mucosa, dentition normal - Neck Neck: supple, normal ROM - Respiratory Respiratory effort: normal Respiratory: bilateral: CTA - Cardiovascular Rhythm: regular - Extremities Extremities: pulses intact, No edema, normal color, Full ROM - Gastrointestinal General gastrointestinal: Present: soft, non-tender, non-distended, normal bowel sounds - Neurologic Neurological: alert and oriented x3 - Labs CBC & Chem 7: 04/06/18 20:05 04/06/18 20:05
--- NOTE | 2018-04-08 13:02 | Progress Note ---
Assessment and Plan Assessment and plan: 63-year-old male presented to the emergency department complaining of diarrhea of one month duration. Patient is complaining of abdominal pain and nausea. CT abdomen shows colitis/prostatitis, and bladder distention Diarrhea colitis - on IV flagyl and levaquin - Showed some improvement - couldn't get stool for C.diff and ova of parasite, called and communicate with the nurse to get the sample - patient may need colonoscopy Hyponatremia - On IV fluids Distended bladder with mild hydronephrosis ?neurogenic bladder - patient was catheterized and 3 Litres urine was drained Hyponatremia - ON IV fluids DVT prophylaxis - heparin Disposition - continue inpatient care History Interval history: Patient was seen and evaluated this morning, no new complaints today. Hospitalist Physical - Physical exam Narrative exam: Not in cardiopulmonary distress. The patient appeared well nourished and normally developed. Vital signs as documented. Head exam is unremarkable. No scleral icterus . Neck is without jugular venous distension, thyromegaly, or carotid bruits. Lungs are clear to auscultation. Cardiac exam reveals regular rate and Rhythm. Abdominal exam reveals normal bowel sounds. Extremities are nonedematous and both femoral and pedal pulses are normal. CLINICAL RESEARCH MANAGER: Alert and oriented 3. No focal weakness. - Constitutional Vitals: Temp Pulse Resp BP Pulse Ox 99.1 F 74 16 118/75 98 04/08/18 05:26 04/08/18 05:26 04/08/18 05:26 04/08/18 05:26 04/08/18 05:26 Results - Labs CBC & Chem 7: 04/06/18 20:05 04/06/18 20:05 Labs: Laboratory Last Values WBC 11.0 K/mm3 (4.5-11.0) 04/06/18 20:05 RBC 3.35 M/mm3 (3.65-5.03) L 04/06/18 20:05 Hgb 10.0 gm/dl (11.8-15.2) L 04/06/18 20:05 Hct 30.4 % (35.5-45.6) L 04/06/18 20:05 MCV 91 fl (84-94) 04/06/18 20:05 MCH 30 pg (28-32) 04/06/18 20:05 MCHC 33 % (32-34) 04/06/18 20:05 RDW 13.8 % (13.2-15.2) 04/06/18 20:05 Plt Count 116 K/mm3 (140-440) L 04/06/18 20:05 Lymph # Paper Control Clerk 04/06/18 20:05 Add Manual Diff Complete 04/06/18 20:05 Total Counted 100 04/06/18 20:05 Seg Neuts % (Manual) 43.0 % (40.0-70.0) 04/06/18 20:05 Band Neutrophils % 0 % 04/06/18 20:05 Lymphocytes % (Manual) 55.0 % (13.4-35.0) H 04/06/18 20:05 Reactive Lymphs % (Man) 0 % 04/06/18 20:05 Monocytes % (Manual) 2.0 % (0.0-7.3) 04/06/18 20:05 Eosinophils % (Manual) 0 % (0.0-4.3) 04/06/18 20:05 Basophils % (Manual) 0 % (0.0-1.8) 04/06/18 20:05 Metamyelocytes % 0 % 04/06/18 20:05 Myelocytes % 0 % 04/06/18 20:05 Promyelocytes % 0 % 04/06/18 20:05 Blast Cells % 0 % 04/06/18 20:05 Nucleated RBC % Not Reportable 04/06/18 20:05 Seg Neutrophils # Man 4.7 K/mm3 (1.8-7.7) 04/06/18 20:05 Band Neutrophils # 0.0 K/mm3 04/06/18 20:05 Lymphocytes # (Manual) 6.1 K/mm3 (1.2-5.4) H 04/06/18 20:05 Abs React Lymphs (Man) 0.0 K/mm3 04/06/18 20:05 Monocytes # (Manual) 0.2 K/mm3 (0.0-0.8) 04/06/18 20:05 Eosinophils # (Manual) 0.0 K/mm3 (0.0-0.4) 04/06/18 20:05 Basophils # (Manual) 0.0 K/mm3 (0.0-0.1) 04/06/18 20:05 Metamyelocytes # 0.0 K/mm3 04/06/18 20:05 Myelocytes # 0.0 K/mm3 04/06/18 20:05 Promyelocytes # 0.0 K/mm3 04/06/18 20:05 Blast Cells # 0.0 K/mm3 04/06/18 20:05 WBC Morphology Not Reportable 04/06/18 20:05 Hypersegmented Neuts Not Reportable 04/06/18 20:05 Hyposegmented Neuts Not Reportable 04/06/18 20:05 Hypogranular Neuts Not Reportable 04/06/18 20:05 Smudge Cells Not Reportable 04/06/18 20:05 Toxic Granulation Not Reportable 04/06/18 20:05 Toxic Vacuolation Not Reportable 04/06/18 20:05 Dohle Bodies Not Reportable 04/06/18 20:05 Pelger-Huet Anomaly Not Reportable 04/06/18 20:05 Rosario Rods Not Reportable 04/06/18 20:05 Platelet Estimate Consistent w auto 04/06/18 20:05 Clumped Platelets Not Reportable 04/06/18 20:05 Plt Clumps, EDTA Not Reportable 04/06/18 20:05 Large Platelets Not Reportable 04/06/18 20:05 Giant Platelets Not Reportable 04/06/18 20:05 Platelet Satelliting Not Reportable 04/06/18 20:05 Plt Morphology Comment Not Reportable 04/06/18 20:05 RBC Morphology Not Reportable 04/06/18 20:05 Dimorphic RBCs Not Reportable 04/06/18 20:05 Polychromasia Not Reportable 04/06/18 20:05 Hypochromasia Not Reportable 04/06/18 20:05 Poikilocytosis 1+ 04/06/18 20:05 Anisocytosis 1+ 04/06/18 20:05 Microcytosis Not Reportable 04/06/18 20:05 Macrocytosis Not Reportable 04/06/18 20:05 Spherocytes Not Reportable 04/06/18 20:05 Pappenheimer Bodies Not Reportable 04/06/18 20:05 Sickle Cells Not Reportable 04/06/18 20:05 Target Cells Not Reportable 04/06/18 20:05 Tear Drop Cells Not Reportable 04/06/18 20:05 Ovalocytes Not Reportable 04/06/18 20:05 Helmet Cells Not Reportable 04/06/18 20:05 [place] Bodies Not Reportable 04/06/18 20:05 [place] Rings Not Reportable 04/06/18 20:05 Sahil Cells Not Reportable 04/06/18 20:05 Bite Cells Not Reportable 04/06/18 20:05 Crenated Cell Not Reportable 04/06/18 20:05 Elliptocytes Not Reportable 04/06/18 20:05 Acanthocytes (Spur) Not Reportable 04/06/18 20:05 Rouleaux Not Reportable 04/06/18 20:05 Hemoglobin C Crystals Not Reportable 04/06/18 20:05 Schistocytes Not Reportable 04/06/18 20:05 Malaria parasites Not Reportable 04/06/18 20:05 Tristan Bodies Not Reportable 04/06/18 20:05 Hem Pathologist Commnt No 04/06/18 20:05 PT 13.1 Sec. (12.2-14.9) 04/06/18 20:05 INR 0.94 (0.87-1.13) 04/06/18 20:05 Sodium 126 mmol/L (137-145) L 04/06/18 20:05 Potassium 3.9 mmol/L (3.6-5.0) 04/06/18 20:05 Chloride 87.7 mmol/L (98-107) L 04/06/18 20:05 Carbon Dioxide 21 mmol/L (22-30) L 04/06/18 20:05 Anion Gap 21 mmol/L 04/06/18 20:05 BUN 20 mg/dL (9-20) 04/06/18 20:05 Creatinine 0.8 mg/dL (0.8-1.5) D 04/06/18 20:05 Estimated GFR > 60 ml/min 04/06/18 20:05 BUN/Creatinine Ratio 25 % 04/06/18 20:05 Glucose 119 mg/dL (75-100) H 04/06/18 20:05 Calcium 9.0 mg/dL (8.4-10.2) 04/06/18 20:05 Total Bilirubin 0.50 mg/dL (0.1-1.2) 04/06/18 20:05 Direct Bilirubin < 0.2 mg/dL (0-0.2) 04/06/18 20:05 Indirect Bilirubin 0.3 mg/dL 04/06/18 20:05 AST 12 units/L (5-40) 04/06/18 20:05 ALT 13 units/L (7-56) 04/06/18 20:05 Alkaline Phosphatase 74 units/L (35-129) 04/06/18 20:05 Troponin T < 0.010 ng/mL (0.00-0.029) 04/06/18 21:38 NT-Pro-B Natriuret Pep 44.32 pg/mL (0-900) 04/06/18 20:05 Total Protein 6.2 g/dL (6.3-8.2) L 04/06/18 20:05 Albumin 3.7 g/dL (3.9-5) L 04/06/18 20:05 Albumin/Globulin Ratio 1.5 % 04/06/18 20:05 Amylase 54 units/L (27-131) 04/06/18 20:05 Lipase 46 units/L (13-60) 04/06/18 20:05 Urine Color Yellow (Yellow) 04/06/18 21:14 Urine Turbidity Slightly-cloudy (Clear) 04/06/18 21:14 Urine pH 6.0 (5.0-7.0) 04/06/18 21:14 Ur Specific [place] 1.016 (1.003-1.030) 04/06/18 21:14 Urine Protein <15 mg/dl mg/dL (Negative) 04/06/18 21:14 Urine Glucose (UA) Neg mg/dL (Negative) 04/06/18 21:14 Urine Ketones Neg mg/dL (Negative) 04/06/18 21:14 Urine Blood Lg (Negative) 04/06/18 21:14 Urine Nitrite Neg (Negative) 04/06/18 21:14 Urine Bilirubin Neg (Negative) 04/06/18 21:14 Urine Urobilinogen < 2.0 mg/dL (<2.0) 04/06/18 21:14 Ur Leukocyte Esterase Neg (Negative) 04/06/18 21:14 Urine WBC (Auto) 4.0 /HPF (0.0-6.0) 04/06/18 21:14 Urine RBC (Auto) 37.0 /HPF (0.0-6.0) 08/31/18 21:14 U Epithel Cells (Auto) < 1.0 /HPF (0-13.0) 04/06/18 21:14 Amorphous Crystals Few 04/06/18 21:14 Urine Mucus Few /HPF 04/06/18 21:14
[2018-04-08 13:43] LABS: BUN/Creatinine Ratio 10; Blood Urea Nitrogen 6 mg/dL (9-20); Calcium 8.4 mg/dL (8.4-10.2); Hemolysis Index 1
[2018-04-09] MEDS: NACL 0.9% 1000 ML 1,000 ML IV SCH (05:44)
[2018-04-09] MEDS: FLAGYL 500 MG/100 ML 500 MG/100 ML BAG IV SCH ×3 (05:44→22:39)
[2018-04-09] MEDS: HEPARIN SUB-Q SCH ×3 (05:45→22:05)
[2018-04-09 07:58] LABS: BUN/Creatinine Ratio 10; Blood Urea Nitrogen 5 mg/dL (9-20); Calcium 8.2 mg/dL (8.4-10.2); Hemolysis Index 6
[2018-04-09 08:03] LABS: Hematocrit 28.9 % (35.5-45.6); Hemoglobin 9.6 gm/dl (11.8-15.2); Mean Corpuscular HGB Conc 33 % (32-34); Mean Corpuscular Hemoglobin 30 pg (28-32); Mean Corpuscular Volume 89 fl (84-94); Platelet Count 124 K/mm3 (140-440); Red Blood Count 3.23 M/mm3 (3.65-5.03); Red Cell Distribution Width 13.4 % (13.2-15.2)
--- NOTE | 2018-04-09 08:32 | Progress Note ---
Assessment and Plan Assessment and plan: 63-year-old male presented to the emergency department complaining of diarrhea of one month duration. Patient is complaining of abdominal pain and nausea. CT abdomen shows colitis/prostatitis, and bladder distention Diarrhea colitis - on IV flagyl and levaquin - Showed improvement - Stool for Ova of parasite and C. diff was ordered and was not done, I have called the nurse yesterday and today to collect it - patient may need colonoscopy - GI consult appreciated Hyponatremia - On IV fluids Distended bladder with mild hydronephrosis ?neurogenic bladder - patient was catheterized with out problems and drained 3 litres of urine - I d/mitchell the mcgowan if patient is not able to pee patient needs urology evaluation. Hyponatremia - ON IV fluids Hypokalemia - Repleted - will check potassium DVT prophylaxis - heparin Disposition - continue inpatient care History Interval history: Patient was seen and evaluated this morning, no new complaints today. I have seen and evaluated the patient using [employer] groundwater programs director # [id number] Hospitalist Physical - Physical exam Narrative exam: Not in cardiopulmonary distress. The patient appeared well nourished and normally developed. Vital signs as documented. Head exam is unremarkable. No scleral icterus . Neck is without jugular venous distension, thyromegaly, or carotid bruits. Lungs are clear to auscultation. Cardiac exam reveals regular rate and Rhythm. Abdominal exam reveals normal bowel sounds. Extremities are nonedematous and both femoral and pedal pulses are normal. WATER AEROBICS INSTRUCTOR: Alert and oriented 3. No focal weakness. - Constitutional Vitals: Temp Pulse Resp BP Pulse Ox 99.1 F 72 16 143/76 99 04/09/18 06:15 04/09/18 06:15 04/09/18 06:15 04/09/18 06:15 04/09/18 06:15 Results - Labs CBC & Chem 7: 04/09/18 06:32 04/09/18 09:48 Labs: Laboratory Last Values WBC 5.5 K/mm3 (4.5-11.0) 04/09/18 06:32 RBC 3.23 M/mm3 (3.65-5.03) L 04/09/18 06:32 Hgb 9.6 gm/dl (11.8-15.2) L 04/09/18 06:32 Hct 28.9 % (35.5-45.6) L 18 06:32 MCV 89 fl (84-94) 04/09/18 06:32 MCH 30 pg (28-32) 04/09/18 06:32 MCHC 33 % (32-34) 04/09/18 06:32 RDW 13.4 % (13.2-15.2) 04/09/18 06:32 Plt Count 124 K/mm3 (140-440) L 04/09/18 06:32 Lymph % (Auto) Food Equipment Service Technician 04/09/18 06:32 Lymph # Food Equipment Service Technician 04/06/18 20:05 Add Manual Diff Complete 04/06/18 20:05 Total Counted 100 04/06/18 20:05 Seg Neuts % (Manual) 43.0 % (40.0-70.0) 04/06/18 20:05 Band Neutrophils % 0 % 04/06/18 20:05 Lymphocytes % (Manual) 55.0 % (13.4-35.0) H 04/06/18 20:05 Reactive Lymphs % (Man) 0 % 04/06/18 20:05 Monocytes % (Manual) 2.0 % (0.0-7.3) 04/06/18 20:05 Eosinophils % (Manual) 0 % (0.0-4.3) 04/06/18 20:05 Basophils % (Manual) 0 % (0.0-1.8) 04/06/18 20:05 Metamyelocytes % 0 % 04/06/18 20:05 Myelocytes % 0 % 04/06/18 20:05 Promyelocytes % 0 % 04/06/18 20:05 Blast Cells % 0 % 04/06/18 20:05 Nucleated RBC % Not Reportable 04/06/18 20:05 Seg Neutrophils # Man 4.7 K/mm3 (1.8-7.7) 04/06/18 20:05 Band Neutrophils # 0.0 K/mm3 04/06/18 20:05 Lymphocytes # (Manual) 6.1 K/mm3 (1.2-5.4) H 04/06/18 20:05 Abs React Lymphs (Man) 0.0 K/mm3 04/06/18 20:05 Monocytes # (Manual) 0.2 K/mm3 (0.0-0.8) 04/06/18 20:05 Eosinophils # (Manual) 0.0 K/mm3 (0.0-0.4) 04/06/18 20:05 Basophils # (Manual) 0.0 K/mm3 (0.0-0.1) 04/06/18 20:05 Metamyelocytes # 0.0 K/mm3 04/06/18 20:05 Myelocytes # 0.0 K/mm3 04/06/18 20:05 Promyelocytes # 0.0 K/mm3 04/06/18 20:05 Blast Cells # 0.0 K/mm3 04/06/18 20:05 WBC Morphology Not Reportable 04/06/18 20:05 Hypersegmented Neuts Not Reportable 04/06/18 20:05 Hyposegmented Neuts Not Reportable 04/06/18 20:05 Hypogranular Neuts Not Reportable 04/06/18 20:05 Smudge Cells Not Reportable 04/06/18 20:05 Toxic Granulation Not Reportable 04/06/18 20:05 Toxic Vacuolation Not Reportable 04/06/18 20:05 Dohle Bodies Not Reportable 04/06/18 20:05 Pelger-Huet Anomaly Not Reportable 04/06/18 20:05 Rosario Rods Not Reportable 04/06/18 20:05 Platelet Estimate Consistent w auto 04/06/18 20:05 Clumped Platelets Not Reportable 04/06/18 20:05 Plt Clumps, EDTA Not Reportable 04/06/18 20:05 Large Platelets Not Reportable 04/06/18 20:05 Giant Platelets Not Reportable 04/06/18 20:05 Platelet Satelliting Not Reportable 04/06/18 20:05 Plt Morphology Comment Not Reportable 04/06/18 20:05 RBC Morphology Not Reportable 04/06/18 20:05 Dimorphic RBCs Not Reportable 04/06/18 20:05 Polychromasia Not Reportable 04/06/18 20:05 Hypochromasia Not Reportable 04/06/18 20:05 Poikilocytosis 1+ 04/06/18 20:05 Anisocytosis 1+ 04/06/18 20:05 Microcytosis Not Reportable 04/06/18 20:05 Macrocytosis Not Reportable 04/06/18 20:05 Spherocytes Not Reportable 04/06/18 20:05 Pappenheimer Bodies Not Reportable 04/06/18 20:05 Sickle Cells Not Reportable 04/06/18 20:05 Target Cells Not Reportable 04/06/18 20:05 Tear Drop Cells Not Reportable 04/06/18 20:05 Ovalocytes Not Reportable 04/06/18 20:05 Helmet Cells Not Reportable 04/06/18 20:05 [place] Bodies Not Reportable 04/06/18 20:05 [place] Rings Not Reportable 04/06/18 20:05 Sahil Cells Not Reportable 04/06/18 20:05 Bite Cells Not Reportable 04/06/18 20:05 Crenated Cell Not Reportable 04/06/18 20:05 Elliptocytes Not Reportable 04/06/18 20:05 Acanthocytes (Spur) Not Reportable 04/06/18 20:05 Rouleaux Not Reportable 04/06/18 20:05 Hemoglobin C Crystals Not Reportable 04/06/18 20:05 Schistocytes Not Reportable 04/06/18 20:05 Malaria parasites Not Reportable 04/06/18 20:05 Tristan Bodies Not Reportable 04/06/18 20:05 Hem Pathologist Commnt No 04/06/18 20:05 PT 13.1 Sec. (12.2-14.9) 04/06/18 20:05 INR 0.94 (0.87-1.13) 04/06/18 20:05 Sodium 133 mmol/L (137-145) L 04/09/18 06:32 Potassium 2.9 mmol/L (3.6-5.0) L* 04/09/18 06:32 Chloride 91.5 mmol/L (98-107) L 04/09/18 06:32 Carbon Dioxide 25 mmol/L (22-30) 04/09/18 06:32 Anion Gap 19 mmol/L 04/09/18 06:32 BUN 5 mg/dL (9-20) L 04/09/18 06:32 Creatinine 0.5 mg/dL (0.8-1.5) L 04/09/18 06:32 Estimated GFR > 60 ml/min 04/09/18 06:32 BUN/Creatinine Ratio 10 % 04/09/18 06:32 Glucose 96 mg/dL (75-100) 04/09/18 06:32 Calcium 8.2 mg/dL (8.4-10.2) L 04/09/18 06:32 Total Bilirubin 0.50 mg/dL (0.1-1.2) 04/06/18 20:05 Direct Bilirubin < 0.2 mg/dL (0-0.2) 04/06/18 20:05 Indirect Bilirubin 0.3 mg/dL 04/06/18 20:05 AST 12 units/L (5-40) 04/06/18 20:05 ALT 13 units/L (7-56) 04/06/18 20:05 Alkaline Phosphatase 74 units/L (35-129) 04/06/18 20:05 Troponin T < 0.010 ng/mL (0.00-0.029) 04/06/18 21:38 NT-Pro-B Natriuret Pep 44.32 pg/mL (0-900) 04/06/18 20:05 Total Protein 6.2 g/dL (6.3-8.2) L 04/06/18 20:05 Albumin 3.7 g/dL (3.9-5) L 04/06/18 20:05 Albumin/Globulin Ratio 1.5 % 04/06/18 20:05 Amylase 54 units/L (27-131) 04/06/18 20:05 Lipase 46 units/L (13-60) 04/06/18 20:05 Urine Color Yellow (Yellow) 04/06/18 21:14 Urine Turbidity Slightly-cloudy (Clear) 04/06/18 21:14 Urine pH 6.0 (5.0-7.0) 04/06/18 21:14 Ur Specific [place] 1.016 (1.003-1.030) 04/06/18 21:14 Urine Protein <15 mg/dl mg/dL (Negative) 04/06/18 21:14 Urine Glucose (UA) Neg mg/dL (Negative) 04/06/18 21:14 Urine Ketones Neg mg/dL (Negative) 04/06/18 21:14 Urine Blood Lg (Negative) 04/06/18 21:14 Urine Nitrite Neg (Negative) 04/06/18 21:14 Urine Bilirubin Neg (Negative) 04/06/18 21:14 Urine Urobilinogen < 2.0 mg/dL (<2.0) 04/06/18 21:14 Ur Leukocyte Esterase Neg (Negative) 04/06/18 21:14 Urine WBC (Auto) 4.0 /HPF (0.0-6.0) 04/06/18 21:14 Urine RBC (Auto) 37.0 /HPF (0.0-6.0) 04/06/18 21:14 U Epithel Cells (Auto) < 1.0 /HPF (0-13.0) 04/06/18 21:14 Amorphous Crystals Few 04/06/18 21:14 Urine Mucus Few /HPF 04/06/18 21:14
[2018-04-09] MEDS ORDERED: K-DUR PO ONE ×3 (09:00→13:18)
[2018-04-09] MEDS: LEVAQUIN 750MG/150ML 750 MG/150 ML BAG IV SCH (09:20)
[2018-04-09 09:28] LABS: Basophils % (Manual) 0 % (0.0-1.8); Eosinophils % (Manual) 0 % (0.0-4.3); Total Cells Counted 100
[2018-04-09 09:29] LABS: Anisocytosis 1+; Platelet Estimate Consistent w Auto; Poikilocytosis Few
--- NOTE | 2018-04-09 10:03 | Gastroenterology Progress Note ---
Assessment and Plan - Patient Problems (1) Urinary retention Current Visit: Yes Status: Acute (2) Diarrhea Current Visit: Yes Status: Acute Qualifiers: Diarrhea type: unspecified type Qualified Code(s): R19.7 - Diarrhea, unspecified Plan to address problem: Chronic diarrhea, reportedly severe for 3 months. Improving rapidly. Nurse stated C. diff was ordered, but not done as paper forms not done. This will be collected today, although he has been on metronidazole. Eventually needs at screening colonoscopy, no longer urgent given progress. Subjective Date of service: 04/09/18 Principal diagnosis: diarrhea Interval history: Feels better. Much less diarrhea. No bleeding. No pain. Objective - Exam Narrative Exam: Flat affect - Constitutional Vitals: Temp Pulse Resp BP Pulse Ox 99.1 F 72 16 143/76 99 04/09/18 06:15 04/09/18 06:15 04/09/18 06:15 04/09/18 06:15 04/09/18 06:15 General appearance: no acute distress - Respiratory Respiratory effort: normal Respiratory: bilateral: CTA - Cardiovascular Rhythm: regular - Gastrointestinal General gastrointestinal: Present: soft, non-tender, non-distended, normal bowel sounds - Neurologic Neurological: strength equal bilaterally, other (speech is slow, mild tremor) - Psychiatric Psychiatric: appropriate mood/affect - Labs CBC & Chem 7: 04/09/18 06:32 04/09/18 06:32 Labs: Laboratory Results - last 24 hr 04/08/18 04/09/18 04/09/18 13:13 06:32 06:32 WBC 5.5 RBC 3.23 L Hgb 9.6 L Hct 28.9 L MCV 89 MCH 30 MCHC 33 RDW 13.4 Plt Count 124 L Lymph % (Auto) Shop Helper Add Manual Diff Complete Total Counted 100 Seg Neuts % (Manual) 60.0 Band Neutrophils % 0 Lymphocytes % (Manual) 36.0 H Reactive Lymphs % (Man) 0 Monocytes % (Manual) 4.0 Eosinophils % (Manual) 0 Basophils % (Manual) 0 Metamyelocytes % 0 Myelocytes % 0 Promyelocytes % 0 Blast Cells % 0 Nucleated RBC % Not Reportable Seg Neutrophils # Man 3.3 Band Neutrophils # 0.0 Lymphocytes # (Manual) 2.0 Abs React Lymphs (Man) 0.0 Monocytes # (Manual) 0.2 Eosinophils # (Manual) 0.0 Basophils # (Manual) 0.0 Metamyelocytes # 0.0 Myelocytes # 0.0 Promyelocytes # 0.0 Blast Cells # 0.0 WBC Morphology Not Reportable Hypersegmented Neuts Not Reportable Hyposegmented Neuts Not Reportable Hypogranular Neuts Not Reportable Smudge Cells Not Reportable Toxic Granulation Not Reportable Toxic Vacuolation Not Reportable Dohle Bodies Not Reportable Pelger-Huet Anomaly Not Reportable Rosario Rods Not Reportable Platelet Estimate Consistent w auto Clumped Platelets Not Reportable Plt Clumps, EDTA Not Reportable Large Platelets Not Reportable Giant Platelets Not Reportable Platelet Satelliting Not Reportable Plt Morphology Comment Not Reportable RBC Morphology Not Reportable Dimorphic RBCs Not Reportable Polychromasia Not Reportable Hypochromasia Not Reportable Poikilocytosis Few Anisocytosis 1+ Microcytosis Not Reportable Macrocytosis Not Reportable Spherocytes Not Reportable Pappenheimer Bodies Not Reportable Sickle Cells Not Reportable Target Cells Not Reportable Tear Drop Cells Not Reportable Ovalocytes Not Reportable Helmet Cells Not Reportable [place] Bodies Not Reportable [place] Rings Not Reportable [place] Cells Not Reportable Bite Cells Not Reportable Crenated Cell Not Reportable Elliptocytes Not Reportable Acanthocytes (Spur) Not Reportable Rouleaux Not Reportable Hemoglobin C Crystals Not Reportable Schistocytes Not Reportable Malaria parasites Not Reportable Tristan Bodies Not Reportable Hem Pathologist Commnt No Sodium 132 L 133 L Potassium 3.1 L D 2.9 L* Chloride 92.9 L 91.5 L Carbon Dioxide 25 25 Anion Gap 17 19 BUN 6 L 5 L Creatinine 0.6 L 0.5 L Estimated GFR > 60 > 60 BUN/Creatinine Ratio 10 10 Glucose 142 H 96 Calcium 8.4 8.2 L
--- NOTE | 2018-04-09 19:18 | Vascular Lab Report ---
Left Lower Extremity Venous Duplex Study: Reason for Exam: Deep venous thrombosis. Comments on the Right: A limited duplex study was done of the proximal veins of the right lower extremity. All veins visualized are freely compressible without evidence of internal echogenicity. Flow is spontaneous and phasic throughout. No evidence of acute or chronic thrombus is seen in any of the vessels visualized. Comments on the Left: All veins visualized are freely compressible without evidence of internal echogenicity. Flow is spontaneous and phasic throughout. No evidence of acute or chronic thrombus is seen in any of the vessels visualized. Impression: No evidence of acute or chronic deep venous thrombosis in the left lower extremity.
[2018-04-10] MEDS: FLAGYL 500 MG/100 ML 500 MG/100 ML BAG IV SCH ×3 (06:00→22:44)
[2018-04-10 06:03] LABS: BUN/Creatinine Ratio 14; Blood Urea Nitrogen 7 mg/dL (9-20); Calcium 8.3 mg/dL (8.4-10.2); Hemolysis Index 0
[2018-04-10] MEDS: HEPARIN SUB-Q SCH ×3 (06:03→22:44)
[2018-04-10] MEDS: LEVAQUIN 750MG/150ML 750 MG/150 ML BAG IV SCH (10:18)
--- NOTE | 2018-04-10 10:54 | Progress Note ---
Assessment and Plan Assessment and plan: Colitis - on IV flagyl and levaquin - Showed improvement - Stool for Ova of parasite and C. diff was ordered and was not done, I have called the nurse yesterday and today to collect it - patient may need colonoscopy - GI consult appreciated Hyponatremia - On IV fluids Distended bladder with mild hydronephrosis ?neurogenic bladder - patient was catheterized with out problems and drained 3 litres of urine - I d/mitchell the mcgowan if patient is not able to void patient needs urology evaluation. Hyponatremia - ON IV fluids Hypokalemia - Repleted - will check potassium DVT prophylaxis - heparin Disposition - continue inpatient care History Interval history: 63-year-old male presented to the emergency department complaining of diarrhea of one month duration. Patient is complaining of abdominal pain and nausea. CT abdomen shows colitis/prostatitis, and bladder distention Hospitalist Physical - Constitutional Vitals: Temp Pulse Resp BP Pulse Ox 98.3 F 71 20 107/68 99 04/10/18 00:02 04/10/18 00:02 04/10/18 00:02 04/10/18 00:02 04/10/18 00:02 General appearance: Present: no acute distress, well-nourished - EENT Eyes: Present: PERRL, EOM intact ENT: hearing intact, clear oral mucosa, dentition normal - Neck Neck: Present: supple, normal ROM - Respiratory Respiratory effort: normal Respiratory: bilateral: CTA - Cardiovascular Rhythm: regular Heart Sounds: Present: S1 & S2. Absent: gallop, rub - Extremities Extremities: no ischemia, No edema, Full ROM - Abdominal General gastrointestinal: soft, non-tender, non-distended, normal bowel sounds - Integumentary Integumentary: Present: clear, warm, dry - Neurologic Neurologic: CNII-XII intact, moves all extremities Results - Labs CBC & Chem 7: 04/09/18 06:32 04/10/18 04:59 Labs: Laboratory Last Values WBC 5.5 K/mm3 (4.5-11.0) 04/09/18 06:32 RBC 3.23 M/mm3 (3.65-5.03) L 04/09/18 06:32 Hgb 9.6 gm/dl (11.8-15.2) L 04/09/18 06:32 Hct 28.9 % (35.5-45.6) L 04/09/18 06:32 MCV 89 fl (84-94) 04/09/18 06:32 MCH 30 pg (28-32) 04/09/18 06:32 MCHC 33 % (32-34) 04/09/18 06:32 RDW 13.4 % (13.2-15.2) 04/09/18 06:32 Plt Count 124 K/mm3 (140-440) L 04/09/18 06:32 Lymph % (Auto) Technical Services Rep 04/09/18 06:32 Lymph # Technical Services Rep 04/06/18 20:05 Add Manual Diff Complete 04/09/18 06:32 Total Counted 100 04/09/18 06:32 Seg Neuts % (Manual) 60.0 % (40.0-70.0) 04/09/18 06:32 Band Neutrophils % 0 % 04/09/18 06:32 Lymphocytes % (Manual) 36.0 % (13.4-35.0) H 04/09/18 06:32 Reactive Lymphs % (Man) 0 % 04/09/18 06:32 Monocytes % (Manual) 4.0 % (0.0-7.3) 04/09/18 06:32 Eosinophils % (Manual) 0 % (0.0-4.3) 04/09/18 06:32 Basophils % (Manual) 0 % (0.0-1.8) 04/09/18 06:32 Metamyelocytes % 0 % 04/09/18 06:32 Myelocytes % 0 % 04/09/18 06:32 Promyelocytes % 0 % 04/09/18 06:32 Blast Cells % 0 % 04/09/18 06:32 Nucleated RBC % Not Reportable 04/09/18 06:32 Seg Neutrophils # Man 3.3 K/mm3 (1.8-7.7) 04/09/18 06:32 Band Neutrophils # 0.0 K/mm3 04/09/18 06:32 Lymphocytes # (Manual) 2.0 K/mm3 (1.2-5.4) 04/09/18 06:32 Abs React Lymphs (Man) 0.0 K/mm3 04/09/18 06:32 Monocytes # (Manual) 0.2 K/mm3 (0.0-0.8) 04/09/18 06:32 Eosinophils # (Manual) 0.0 K/mm3 (0.0-0.4) 04/09/18 06:32 Basophils # (Manual) 0.0 K/mm3 (0.0-0.1) 04/09/18 06:32 Metamyelocytes # 0.0 K/mm3 04/09/18 06:32 Myelocytes # 0.0 K/mm3 04/09/18 06:32 Promyelocytes # 0.0 K/mm3 04/09/18 06:32 Blast Cells # 0.0 K/mm3 04/09/18 06:32 WBC Morphology Not Reportable 04/09/18 06:32 Hypersegmented Neuts Not Reportable 04/09/18 06:32 Hyposegmented Neuts Not Reportable 04/09/18 06:32 Hypogranular Neuts Not Reportable 04/09/18 06:32 Smudge Cells Not Reportable 04/09/18 06:32 Toxic Granulation Not Reportable 04/09/18 06:32 Toxic Vacuolation Not Reportable 04/09/18 06:32 Dohle Bodies Not Reportable 04/09/18 06:32 Pelger-Huet Anomaly Not Reportable 04/09/18 06:32 Rosario Rods Not Reportable 04/09/18 06:32 Platelet Estimate Consistent w auto 04/09/18 06:32 Clumped Platelets Not Reportable 04/09/18 06:32 Plt Clumps, EDTA Not Reportable 04/09/18 06:32 Large Platelets Not Reportable 04/09/18 06:32 Giant Platelets Not Reportable 04/09/18 06:32 Platelet Satelliting Not Reportable 04/09/18 06:32 Plt Morphology Comment Not Reportable 04/09/18 06:32 RBC Morphology Not Reportable 04/09/18 06:32 Dimorphic RBCs Not Reportable 04/09/18 06:32 Polychromasia Not Reportable 04/09/18 06:32 Hypochromasia Not Reportable 04/09/18 06:32 Poikilocytosis Few 04/09/18 06:32 Anisocytosis 1+ 04/09/18 06:32 Microcytosis Not Reportable 04/09/18 06:32 Macrocytosis Not Reportable 04/09/18 06:32 Spherocytes Not Reportable 04/09/18 06:32 Pappenheimer Bodies Not Reportable 04/09/18 06:32 Sickle Cells Not Reportable 04/09/18 06:32 Target Cells Not Reportable 04/09/18 06:32 Tear Drop Cells Not Reportable 04/09/18 06:32 Ovalocytes Not Reportable 04/09/18 06:32 Helmet Cells Not Reportable 04/09/18 06:32 [place] Bodies Not Reportable 04/09/18 06:32 [place] Rings Not Reportable 04/09/18 06:32 [place] Cells Not Reportable 04/09/18 06:32 Bite Cells Not Reportable 04/09/18 06:32 Crenated Cell Not Reportable 04/09/18 06:32 Elliptocytes Not Reportable 04/09/18 06:32 Acanthocytes (Spur) Not Reportable 04/09/18 06:32 Rouleaux Not Reportable 04/09/18 06:32 Hemoglobin C Crystals Not Reportable 04/09/18 06:32 Schistocytes Not Reportable 04/09/18 06:32 Malaria parasites Not Reportable 04/09/18 06:32 Tristan Bodies Not Reportable 04/09/18 06:32 Hem Pathologist Commnt No 04/09/18 06:32 PT 13.1 Sec. (12.2-14.9) 04/06/18 20:05 INR 0.94 (0.87-1.13) 04/06/18 20:05 Sodium 129 mmol/L (137-145) L 04/10/18 04:59 Potassium 3.5 mmol/L (3.6-5.0) L 04/10/18 04:59 Chloride 90.3 mmol/L (98-107) L 04/10/18 04:59 Carbon Dioxide 22 mmol/L (22-30) 04/10/18 04:59 Anion Gap 20 mmol/L 04/10/18 04:59 BUN 7 mg/dL (9-20) L 04/10/18 04:59 Creatinine 0.5 mg/dL (0.8-1.5) L 04/10/18 04:59 Estimated GFR > 60 ml/min 04/10/18 04:59 BUN/Creatinine Ratio 14 % 04/10/18 04:59 Glucose 97 mg/dL (75-100) 04/10/18 04:59 Calcium 8.3 mg/dL (8.4-10.2) L 04/10/18 04:59 Magnesium 1.10 mg/dL (1.7-2.3) L 04/09/18 09:48 Total Bilirubin 0.50 mg/dL (0.1-1.2) 04/06/18 20:05 Direct Bilirubin < 0.2 mg/dL (0-0.2) 04/06/18 20:05 Indirect Bilirubin 0.3 mg/dL 04/06/18 20:05 AST 12 units/L (5-40) 04/06/18 20:05 ALT 13 units/L (7-56) 04/06/18 20:05 Alkaline Phosphatase 74 units/L (35-129) 04/06/18 20:05 Troponin T < 0.010 ng/mL (0.00-0.029) 04/06/18 21:38 NT-Pro-B Natriuret Pep 44.32 pg/mL (0-900) 04/06/18 20:05 Total Protein 6.2 g/dL (6.3-8.2) L 04/06/18 20:05 Albumin 3.7 g/dL (3.9-5) L 04/06/18 20:05 Albumin/Globulin Ratio 1.5 % 04/06/18 20:05 Amylase 54 units/L (27-131) 04/06/18 20:05 Lipase 46 units/L (13-60) 04/06/18 20:05 Urine Color Yellow (Yellow) 04/06/18 21:14 Urine Turbidity Slightly-cloudy (Clear) 04/06/18 21:14 Urine pH 6.0 (5.0-7.0) 04/06/18 21:14 Ur Specific [place] 1.016 (1.003-1.030) 04/06/18 21:14 Urine Protein <15 mg/dl mg/dL (Negative) 04/06/18 21:14 Urine Glucose (UA) Neg mg/dL (Negative) 04/06/18 21:14 Urine Ketones Neg mg/dL (Negative) 04/06/18 21:14 Urine Blood Lg (Negative) 04/06/18 21:14 Urine Nitrite Neg (Negative) 04/06/18 21:14 Urine Bilirubin Neg (Negative) 04/06/18 21:14 Urine Urobilinogen < 2.0 mg/dL (<2.0) 04/06/18 21:14 Ur Leukocyte Esterase Neg (Negative) 04/06/18 21:14 Urine WBC (Auto) 4.0 /HPF (0.0-6.0) 04/06/18 21:14 Urine RBC (Auto) 37.0 /HPF (0.0-6.0) 04/06/18 21:14 U Epithel Cells (Auto) < 1.0 /HPF (0-13.0) 04/06/18 21:14 Amorphous Crystals Few 04/06/18 21:14 Urine Mucus Few /HPF 04/06/18 21:14
--- NOTE | 2018-04-10 15:34 | Gastroenterology Progress Note ---
<MONICA MARTINEZ - Last Filed: 04/10/18 15:40> Assessment and Plan 1.diarrhea -afebrile -WBC-WNL -CT showed mild thickening of the rectosigmoid- consider mild colitis/proctitis -stool studies pending -etiology unclear -clinically, patient is stable w/o evidence of abd pain, N/V, or signs of bleeding. Diarrhea rapidly improved. BM x 1 today per nursing -continue empiric antibiotics for total of 7 days and supportive care -will need screening colonoscopy eventually as outpatient- follow up in clinic upon d/c -no further recommendations per GI at this time -will sign off, please call if needed Subjective Date of service: 04/10/18 Principal diagnosis: diarrhea Interval history: Patient w/o acute distress. Diarrhea improved. BM x 1 today per nursing. No evidence of abd pain or N/V. Objective - Constitutional Vitals: Temp Pulse Resp BP Pulse Ox 97.7 F 100 H 19 95/58 100 04/10/18 12:40 04/10/18 12:40 04/10/18 12:40 04/10/18 12:40 04/10/18 12:40 General appearance: no acute distress - Respiratory Respiratory: bilateral: CTA - Cardiovascular Rhythm: regular Heart Sounds: Present: S1 & S2 - Gastrointestinal General gastrointestinal: Present: soft, non-tender, non-distended, normal bowel sounds - Labs CBC & Chem 7: 04/09/18 06:32 04/10/18 04:59 Labs: Laboratory Results - last 24 hr 04/09/18 04/10/18 16:40 04:59 Sodium 129 L Potassium 3.6 D 3.5 L Chloride 90.3 L Carbon Dioxide 22 Anion Gap 20 BUN 7 L Creatinine 0.5 L Estimated GFR > 60 BUN/Creatinine Ratio 14 Glucose 97 Calcium 8.3 L <TARA GAMING - Last Filed: 04/10/18 17:12> Assessment and Plan Please note that GI symptomatology seems to be resolved. However, pt has a hx of depression, was in a Psych facility 2x apparently over the last 3 months, and complains of changes in his speech. He has no close family that he could refer us to for further discussion. He has 2 children, one in [place]. May benefit from Psychosocial evaluation. Will sign off, as above. Objective - Constitutional Vitals: Temp Pulse Resp BP Pulse Ox 97.7 F 100 H 19 95/58 100 04/10/18 12:40 04/10/18 12:40 04/10/18 12:40 04/10/18 12:40 04/10/18 12:40 - Labs CBC & Chem 7: 04/09/18 06:32 04/10/18 04:59 Labs: Laboratory Results - last 24 hr 04/10/18 04:59 Sodium 129 L Potassium 3.5 L Chloride 90.3 L Carbon Dioxide 22 Anion Gap 20 BUN 7 L Creatinine 0.5 L Estimated GFR > 60 BUN/Creatinine Ratio 14 Glucose 97 Calcium 8.3 L
[2018-04-11] MEDS: FLAGYL 500 MG/100 ML 500 MG/100 ML BAG IV SCH ×3 (05:21→22:08)
[2018-04-11] MEDS: HEPARIN SUB-Q SCH ×3 (05:21→22:09)
[2018-04-11] MEDS: LEVAQUIN 750MG/150ML 750 MG/150 ML BAG IV SCH (09:48)
--- NOTE | 2018-04-11 10:56 | Progress Note ---
Assessment and Plan Assessment and plan: Colitis - on IV flagyl and levaquin - Showed improvement - Stool for Ova of parasite and C. diff was ordered and was not done, I have called the nurse yesterday and today to collect it - patient may need colonoscopy - GI consult appreciated Hyponatremia - On IV fluids Distended bladder with mild hydronephrosis ?neurogenic bladder CT scan reveals evidence suspicious of bladder outlet obstruction versus neurogenic bladder. Urology consultation CLL. Case management reports patient has old medical records from [facility] that revealed CLL. Oncology consultation Hyponatremia - ON IV fluids Hypokalemia - Repleted - will check potassium as needed DVT prophylaxis - heparin Disposition - continue inpatient care History Interval history: 63-year-old male presented to the emergency department complaining of diarrhea of one month duration. Patient is complaining of abdominal pain and nausea. CT abdomen shows colitis/prostatitis, and bladder distention Hospitalist Physical - Constitutional Vitals: Temp Pulse Resp BP Pulse Ox 97.5 F L 68 18 134/68 100 04/11/18 06:30 04/11/18 06:30 04/11/18 06:30 04/11/18 06:30 04/11/18 06:30 General appearance: Present: no acute distress, well-nourished - EENT Eyes: Present: PERRL, EOM intact ENT: hearing intact, clear oral mucosa, dentition normal - Neck Neck: Present: supple, normal ROM - Respiratory Respiratory effort: normal Respiratory: bilateral: CTA - Cardiovascular Rhythm: regular Heart Sounds: Present: S1 & S2. Absent: gallop, rub - Extremities Extremities: no ischemia, No edema, Full ROM - Abdominal General gastrointestinal: soft, non-tender, non-distended, normal bowel sounds - Integumentary Integumentary: Present: clear, warm, dry - Neurologic Neurologic: CNII-XII intact, moves all extremities Results - Labs CBC & Chem 7: 04/09/18 06:32 04/10/18 04:59 Labs: Laboratory Last Values WBC 5.5 K/mm3 (4.5-11.0) 04/09/18 06:32 RBC 3.23 M/mm3 (3.65-5.03) L 04/09/18 06:32 Hgb 9.6 gm/dl (11.8-15.2) L 04/09/18 06:32 Hct 28.9 % (35.5-45.6) L 04/09/18 06:32 MCV 89 fl (84-94) 04/09/18 06:32 MCH 30 pg (28-32) 04/09/18 06:32 MCHC 33 % (32-34) 04/09/18 06:32 RDW 13.4 % (13.2-15.2) 04/09/18 06:32 Plt Count 124 K/mm3 (140-440) L 04/09/18 06:32 Lymph % (Auto) Photo Tube Assembler 04/09/18 06:32 Lymph # Photo Tube Assembler 04/06/18 20:05 Add Manual Diff Complete 04/09/18 06:32 Total Counted 100 04/09/18 06:32 Seg Neuts % (Manual) 60.0 % (40.0-70.0) 04/09/18 06:32 Band Neutrophils % 0 % 04/09/18 06:32 Lymphocytes % (Manual) 36.0 % (13.4-35.0) H 04/09/18 06:32 Reactive Lymphs % (Man) 0 % 04/09/18 06:32 Monocytes % (Manual) 4.0 % (0.0-7.3) 04/09/18 06:32 Eosinophils % (Manual) 0 % (0.0-4.3) 04/09/18 06:32 Basophils % (Manual) 0 % (0.0-1.8) 04/09/18 06:32 Metamyelocytes % 0 % 04/09/18 06:32 Myelocytes % 0 % 04/09/18 06:32 Promyelocytes % 0 % 04/09/18 06:32 Blast Cells % 0 % 04/09/18 06:32 Nucleated RBC % Not Reportable 04/09/18 06:32 Seg Neutrophils # Man 3.3 K/mm3 (1.8-7.7) 04/09/18 06:32 Band Neutrophils # 0.0 K/mm3 04/09/18 06:32 Lymphocytes # (Manual) 2.0 K/mm3 (1.2-5.4) 04/09/18 06:32 Abs React Lymphs (Man) 0.0 K/mm3 04/09/18 06:32 Monocytes # (Manual) 0.2 K/mm3 (0.0-0.8) 04/09/18 06:32 Eosinophils # (Manual) 0.0 K/mm3 (0.0-0.4) 04/09/18 06:32 Basophils # (Manual) 0.0 K/mm3 (0.0-0.1) 04/09/18 06:32 Metamyelocytes # 0.0 K/mm3 04/09/18 06:32 Myelocytes # 0.0 K/mm3 04/09/18 06:32 Promyelocytes # 0.0 K/mm3 04/09/18 06:32 Blast Cells # 0.0 K/mm3 04/09/18 06:32 WBC Morphology Not Reportable 04/09/18 06:32 Hypersegmented Neuts Not Reportable 04/09/18 06:32 Hyposegmented Neuts Not Reportable 04/09/18 06:32 Hypogranular Neuts Not Reportable 04/09/18 06:32 Smudge Cells Not Reportable 04/09/18 06:32 Toxic Granulation Not Reportable 04/09/18 06:32 Toxic Vacuolation Not Reportable 04/09/18 06:32 Dohle Bodies Not Reportable 04/09/18 06:32 Pelger-Huet Anomaly Not Reportable 04/09/18 06:32 Rosario Rods Not Reportable 04/09/18 06:32 Platelet Estimate Consistent w auto 04/09/18 06:32 Clumped Platelets Not Reportable 04/09/18 06:32 Plt Clumps, EDTA Not Reportable 04/09/18 06:32 Large Platelets Not Reportable 04/09/18 06:32 Giant Platelets Not Reportable 04/09/18 06:32 Platelet Satelliting Not Reportable 04/09/18 06:32 Plt Morphology Comment Not Reportable 04/09/18 06:32 RBC Morphology Not Reportable 04/09/18 06:32 Dimorphic RBCs Not Reportable 04/09/18 06:32 Polychromasia Not Reportable 04/09/18 06:32 Hypochromasia Not Reportable 04/09/18 06:32 Poikilocytosis Few 04/09/18 06:32 Anisocytosis 1+ 04/09/18 06:32 Microcytosis Not Reportable 04/09/18 06:32 Macrocytosis Not Reportable 04/09/18 06:32 Spherocytes Not Reportable 04/09/18 06:32 Pappenheimer Bodies Not Reportable 04/09/18 06:32 Sickle Cells Not Reportable 04/09/18 06:32 Target Cells Not Reportable 04/09/18 06:32 Tear Drop Cells Not Reportable 04/09/18 06:32 Ovalocytes Not Reportable 04/09/18 06:32 Helmet Cells Not Reportable 04/09/18 06:32 [place] Bodies Not Reportable 04/09/18 06:32 [place] Rings Not Reportable 04/09/18 06:32 [place] Cells Not Reportable 04/09/18 06:32 Bite Cells Not Reportable 04/09/18 06:32 Crenated Cell Not Reportable 04/09/18 06:32 Elliptocytes Not Reportable 04/09/18 06:32 Acanthocytes (Spur) Not Reportable 04/09/18 06:32 Rouleaux Not Reportable 04/09/18 06:32 Hemoglobin C Crystals Not Reportable 04/09/18 06:32 Schistocytes Not Reportable 04/09/18 06:32 Malaria parasites Not Reportable 04/09/18 06:32 Tristan Bodies Not Reportable 04/09/18 06:32 Hem Pathologist Commnt No 04/09/18 06:32 PT 13.1 Sec. (12.2-14.9) 04/06/18 20:05 INR 0.94 (0.87-1.13) 04/06/18 20:05 Sodium 129 mmol/L (137-145) L 04/10/18 04:59 Potassium 3.5 mmol/L (3.6-5.0) L 04/10/18 04:59 Chloride 90.3 mmol/L (98-107) L 04/10/18 04:59 Carbon Dioxide 22 mmol/L (22-30) 04/10/18 04:59 Anion Gap 20 mmol/L 04/10/18 04:59 BUN 7 mg/dL (9-20) L 04/10/18 04:59 Creatinine 0.5 mg/dL (0.8-1.5) L 04/10/18 04:59 Estimated GFR > 60 ml/min 04/10/18 04:59 BUN/Creatinine Ratio 14 % 04/10/18 04:59 Glucose 97 mg/dL (75-100) 04/10/18 04:59 Calcium 8.3 mg/dL (8.4-10.2) L 04/10/18 04:59 Magnesium 1.10 mg/dL (1.7-2.3) L 04/09/18 09:48 Total Bilirubin 0.50 mg/dL (0.1-1.2) 04/06/18 20:05 Direct Bilirubin < 0.2 mg/dL (0-0.2) 04/06/18 20:05 Indirect Bilirubin 0.3 mg/dL 04/06/18 20:05 AST 12 units/L (5-40) 04/06/18 20:05 ALT 13 units/L (7-56) 04/06/18 20:05 Alkaline Phosphatase 74 units/L (35-129) 04/06/18 20:05 Troponin T < 0.010 ng/mL (0.00-0.029) 04/06/18 21:38 NT-Pro-B Natriuret Pep 44.32 pg/mL (0-900) 04/06/18 20:05 Total Protein 6.2 g/dL (6.3-8.2) L 04/06/18 20:05 Albumin 3.7 g/dL (3.9-5) L 04/06/18 20:05 Albumin/Globulin Ratio 1.5 % 04/06/18 20:05 Amylase 54 units/L (27-131) 04/06/18 20:05 Lipase 46 units/L (13-60) 04/06/18 20:05 Urine Color Yellow (Yellow) 04/06/18 21:14 Urine Turbidity Slightly-cloudy (Clear) 04/06/18 21:14 Urine pH 6.0 (5.0-7.0) 04/06/18 21:14 Ur Specific [place] 1.016 (1.003-1.030) 04/06/18 21:14 Urine Protein <15 mg/dl mg/dL (Negative) 04/06/18 21:14 Urine Glucose (UA) Neg mg/dL (Negative) 04/06/18 21:14 Urine Ketones Neg mg/dL (Negative) 04/06/18 21:14 Urine Blood Lg (Negative) 04/06/18 21:14 Urine Nitrite Neg (Negative) 04/06/18 21:14 Urine Bilirubin Neg (Negative) 04/06/18 21:14 Urine Urobilinogen < 2.0 mg/dL (<2.0) 04/06/18 21:14 Ur Leukocyte Esterase Neg (Negative) 04/06/18 21:14 Urine WBC (Auto) 4.0 /HPF (0.0-6.0) 04/06/18 21:14 Urine RBC (Auto) 37.0 /HPF (0.0-6.0) 04/06/18 21:14 U Epithel Cells (Auto) < 1.0 /HPF (0-13.0) 04/06/18 21:14 Amorphous Crystals Few 04/06/18 21:14 Urine Mucus Few /HPF 04/06/18 21:14
--- NOTE | 2018-04-11 12:19 | Progress Note ---
Assessment and Plan impacted dictated Subjective Date of service: 04/11/18 Principal diagnosis: diarrhea Objective - Constitutional Vitals: Vital Signs - 12hr 04/11/18 06:30 Temperature 97.5 F L Pulse Rate 68 Respiratory 18 Rate Blood Pressure 134/68 O2 Sat by Pulse 100 Oximetry General appearance: Present: no acute distress - Neck Neck: supple - Gastrointestinal General gastrointestinal: Present: soft, non-tender - Labs CBC & Chem 7: 04/09/18 06:32 04/10/18 04:59
--- NOTE | 2018-04-11 13:42 | Consultation ---
HISTORY OF PRESENT ILLNESS: The patient is a 63-year-old gentleman who has what appears to be aphasia and difficulty with his speech and cognition and confusion. He speaks Mandarin mostly, just a small amount of French. He presents with diarrhea, difficulty voiding. He cannot give a really good history. PAST MEDICAL HISTORY: Unknown. PAST SURGICAL HISTORY: Denied. SOCIAL HISTORY: Negative. FAMILY HISTORY: Noncontributory. MEDICATIONS: Zoloft, Flomax, ibuprofen. REVIEW OF SYSTEMS: Not very reliable. PHYSICAL EXAMINATION: GENERAL: He is awake. He appears somewhat lethargic and confused. He is in no distress. ABDOMEN: Soft, nondistended. GENITALIA: He is uncircumcised. Alvarado is draining clear. Testes slightly atrophic, descended bilaterally. No hernias. DIGITAL RECTAL EXAM: Severely impacted with lots of very pasty stool in the rectal vault. IMPRESSION: Impaction, recent urinary retention. Catheter is placed. GI is on board, suspect he needs disimpaction and we can give him a voiding trial as an outpatient. For now, I would leave the Alvarado catheter in and await GI evaluation. JOB# [id number] MAKAYLA/LEONOR
--- NOTE | 2018-04-11 15:40 | Progress Note ---
Assessment and Plan 1. Fecal impaction - based on rectal exam by . No clinical evidence of significant impaction. Pt initially was treated for diarrhea. Will give laxatives to ensure colon is clear, with Golytely. - no further GI recommendations. - diet and additional management as per Hospitalist. Will sign off, again. Subjective Date of service: 04/11/18 Principal diagnosis: diarrhea Interval history: Asked by Hospitalist to address possible impaction, based on Dr. Murphy's exam. Pt appears comfortable, and Dr. Victoria described pasty stool. Rectal exam was not repeated by me. Objective - Constitutional Vitals: Vital Signs - 12hr 04/11/18 04/11/18 06:30 12:03 Temperature 97.5 F L 98.1 F Pulse Rate 68 88 Respiratory 18 18 Rate Blood Pressure 134/68 98/60 O2 Sat by Pulse 100 99 Oximetry General appearance: Present: no acute distress - EENT Eyes: PERRL, EOM intact ENT: hearing intact - Respiratory Respiratory effort: normal - Gastrointestinal General gastrointestinal: Present: soft, non-tender, other (Thin and scaphoid) - Labs CBC & Chem 7: 04/09/18 06:32 04/10/18 04:59
[2018-04-11] MEDS ORDERED: GOLYTELY PO ONE (20:13)
[2018-04-11] MEDS ORDERED: FLEET PR ONE (20:14)
[2018-04-12] MEDS: FLAGYL 500 MG/100 ML 500 MG/100 ML BAG IV SCH (05:25)
[2018-04-12] MEDS: HEPARIN SUB-Q SCH ×3 (05:50→22:39)
--- NOTE | 2018-04-12 09:47 | Progress Note ---
Assessment and Plan Assessment and plan: Colitis - on IV flagyl and levaquin - Showed improvement - Stool for Ova of parasite and C. diff was ordered and was not done, I have called the nurse yesterday and today to collect it - patient may need colonoscopy - GI consult appreciated Fecal impaction. GI reports no clinical evidence of significant impaction. GI ordered laxatives with GoLYTELY. Hyponatremia - On IV fluids Distended bladder with mild hydronephrosis ?neurogenic bladder CT scan reveals evidence suspicious of bladder outlet obstruction versus neurogenic bladder. Urology evaluated the patient. Attempt bladder training. CLL. Case management reports patient has old medical records from [facility] that revealed CLL. Oncology consultation Hyponatremia - ON IV fluids Hypokalemia - Repleted - will check potassium as needed DVT prophylaxis - heparin Disposition - continue inpatient care History Interval history: 63-year-old male presented to the emergency department complaining of diarrhea of one month duration. Patient is complaining of abdominal pain and nausea. CT abdomen shows colitis/prostatitis, and bladder distention Hospitalist Physical - Constitutional Vitals: Temp Pulse Resp BP Pulse Ox 98.2 F 78 18 99/58 98 04/11/18 23:25 04/11/18 23:25 04/11/18 23:25 04/11/18 23:25 04/11/18 23:25 General appearance: Present: no acute distress - EENT Eyes: Present: PERRL, EOM intact ENT: hearing intact, clear oral mucosa, dentition normal - Neck Neck: Present: supple, normal ROM - Respiratory Respiratory effort: normal Respiratory: bilateral: CTA - Cardiovascular Rhythm: regular Heart Sounds: Present: S1 & S2. Absent: gallop, rub - Extremities Extremities: no ischemia, No edema, Full ROM - Abdominal General gastrointestinal: soft, non-tender, non-distended, normal bowel sounds - Integumentary Integumentary: Present: clear, warm, dry - Neurologic Neurologic: CNII-XII intact, moves all extremities Results - Labs CBC & Chem 7: 04/09/18 06:32 04/10/18 04:59 Labs: Laboratory Last Values WBC 5.5 K/mm3 (4.5-11.0) 04/09/18 06:32 RBC 3.23 M/mm3 (3.65-5.03) L 04/09/18 06:32 Hgb 9.6 gm/dl (11.8-15.2) L 04/09/18 06:32 Hct 28.9 % (35.5-45.6) L 04/09/18 06:32 MCV 89 fl (84-94) 04/09/18 06:32 MCH 30 pg (28-32) 04/09/18 06:32 MCHC 33 % (32-34) 04/09/18 06:32 RDW 13.4 % (13.2-15.2) 04/09/18 06:32 Plt Count 124 K/mm3 (140-440) L 04/09/18 06:32 Lymph % (Auto) Patent Prosecution Paralegal 04/09/18 06:32 Lymph # Patent Prosecution Paralegal 04/06/18 20:05 Add Manual Diff Complete 04/09/18 06:32 Total Counted 100 04/09/18 06:32 Seg Neuts % (Manual) 60.0 % (40.0-70.0) 04/09/18 06:32 Band Neutrophils % 0 % 04/09/18 06:32 Lymphocytes % (Manual) 36.0 % (13.4-35.0) H 04/09/18 06:32 Reactive Lymphs % (Man) 0 % 04/09/18 06:32 Monocytes % (Manual) 4.0 % (0.0-7.3) 04/09/18 06:32 Eosinophils % (Manual) 0 % (0.0-4.3) 04/09/18 06:32 Basophils % (Manual) 0 % (0.0-1.8) 04/09/18 06:32 Metamyelocytes % 0 % 04/09/18 06:32 Myelocytes % 0 % 04/09/18 06:32 Promyelocytes % 0 % 04/09/18 06:32 Blast Cells % 0 % 04/09/18 06:32 Nucleated RBC % Not Reportable 04/09/18 06:32 Seg Neutrophils # Man 3.3 K/mm3 (1.8-7.7) 04/09/18 06:32 Band Neutrophils # 0.0 K/mm3 04/09/18 06:32 Lymphocytes # (Manual) 2.0 K/mm3 (1.2-5.4) 04/09/18 06:32 Abs React Lymphs (Man) 0.0 K/mm3 04/09/18 06:32 Monocytes # (Manual) 0.2 K/mm3 (0.0-0.8) 04/09/18 06:32 Eosinophils # (Manual) 0.0 K/mm3 (0.0-0.4) 04/09/18 06:32 Basophils # (Manual) 0.0 K/mm3 (0.0-0.1) 04/09/18 06:32 Metamyelocytes # 0.0 K/mm3 04/09/18 06:32 Myelocytes # 0.0 K/mm3 04/09/18 06:32 Promyelocytes # 0.0 K/mm3 04/09/18 06:32 Blast Cells # 0.0 K/mm3 04/09/18 06:32 WBC Morphology Not Reportable 04/09/18 06:32 Hypersegmented Neuts Not Reportable 04/09/18 06:32 Hyposegmented Neuts Not Reportable 04/09/18 06:32 Hypogranular Neuts Not Reportable 04/09/18 06:32 Smudge Cells Not Reportable 04/09/18 06:32 Toxic Granulation Not Reportable 04/09/18 06:32 Toxic Vacuolation Not Reportable 04/09/18 06:32 Dohle Bodies Not Reportable 04/09/18 06:32 Pelger-Huet Anomaly Not Reportable 04/09/18 06:32 Rosario Rods Not Reportable 04/09/18 06:32 Platelet Estimate Consistent w auto 04/09/18 06:32 Clumped Platelets Not Reportable 04/09/18 06:32 Plt Clumps, EDTA Not Reportable 04/09/18 06:32 Large Platelets Not Reportable 04/09/18 06:32 Giant Platelets Not Reportable 04/09/18 06:32 Platelet Satelliting Not Reportable 04/09/18 06:32 Plt Morphology Comment Not Reportable 04/09/18 06:32 RBC Morphology Not Reportable 04/09/18 06:32 Dimorphic RBCs Not Reportable 04/09/18 06:32 Polychromasia Not Reportable 04/09/18 06:32 Hypochromasia Not Reportable 04/09/18 06:32 Poikilocytosis Few 04/09/18 06:32 Anisocytosis 1+ 04/09/18 06:32 Microcytosis Not Reportable 04/09/18 06:32 Macrocytosis Not Reportable 04/09/18 06:32 Spherocytes Not Reportable 04/09/18 06:32 Pappenheimer Bodies Not Reportable 04/09/18 06:32 Sickle Cells Not Reportable 04/09/18 06:32 Target Cells Not Reportable 04/09/18 06:32 Tear Drop Cells Not Reportable 04/09/18 06:32 Ovalocytes Not Reportable 04/09/18 06:32 Helmet Cells Not Reportable 04/09/18 06:32 [place] Bodies Not Reportable 04/09/18 06:32 [place] Rings Not Reportable 04/09/18 06:32 Sahil Cells Not Reportable 04/09/18 06:32 Bite Cells Not Reportable 04/09/18 06:32 Crenated Cell Not Reportable 04/09/18 06:32 Elliptocytes Not Reportable 04/09/18 06:32 Acanthocytes (Spur) Not Reportable 04/09/18 06:32 Rouleaux Not Reportable 04/09/18 06:32 Hemoglobin C Crystals Not Reportable 04/09/18 06:32 Schistocytes Not Reportable 04/09/18 06:32 Malaria parasites Not Reportable 04/09/18 06:32 Tristan Bodies Not Reportable 04/09/18 06:32 Hem Pathologist Commnt No 04/09/18 06:32 PT 13.1 Sec. (12.2-14.9) 04/06/18 20:05 INR 0.94 (0.87-1.13) 04/06/18 20:05 Sodium 129 mmol/L (137-145) L 04/10/18 04:59 Potassium 3.5 mmol/L (3.6-5.0) L 04/10/18 04:59 Chloride 90.3 mmol/L (98-107) L 04/10/18 04:59 Carbon Dioxide 22 mmol/L (22-30) 04/10/18 04:59 Anion Gap 20 mmol/L 04/10/18 04:59 BUN 7 mg/dL (9-20) L 04/10/18 04:59 Creatinine 0.5 mg/dL (0.8-1.5) L 04/10/18 04:59 Estimated GFR > 60 ml/min 04/10/18 04:59 BUN/Creatinine Ratio 14 % 04/10/18 04:59 Glucose 97 mg/dL (75-100) 04/10/18 04:59 Calcium 8.3 mg/dL (8.4-10.2) L 04/10/18 04:59 Magnesium 1.10 mg/dL (1.7-2.3) L 04/09/18 09:48 Total Bilirubin 0.50 mg/dL (0.1-1.2) 04/06/18 20:05 Direct Bilirubin < 0.2 mg/dL (0-0.2) 04/06/18 20:05 Indirect Bilirubin 0.3 mg/dL 04/06/18 20:05 AST 12 units/L (5-40) 04/06/18 20:05 ALT 13 units/L (7-56) 04/06/18 20:05 Alkaline Phosphatase 74 units/L (35-129) 04/06/18 20:05 Troponin T < 0.010 ng/mL (0.00-0.029) 04/06/18 21:38 NT-Pro-B Natriuret Pep 44.32 pg/mL (0-900) 04/06/18 20:05 Total Protein 6.2 g/dL (6.3-8.2) L 04/06/18 20:05 Albumin 3.7 g/dL (3.9-5) L 04/06/18 20:05 Albumin/Globulin Ratio 1.5 % 04/06/18 20:05 Amylase 54 units/L (27-131) 04/06/18 20:05 Lipase 46 units/L (13-60) 04/06/18 20:05 Urine Color Yellow (Yellow) 04/06/18 21:14 Urine Turbidity Slightly-cloudy (Clear) 04/06/18 21:14 Urine pH 6.0 (5.0-7.0) 04/06/18 21:14 Ur Specific [place] 1.016 (1.003-1.030) 04/06/18 21:14 Urine Protein <15 mg/dl mg/dL (Negative) 04/06/18 21:14 Urine Glucose (UA) Neg mg/dL (Negative) 04/06/18 21:14 Urine Ketones Neg mg/dL (Negative) 04/06/18 21:14 Urine Blood Lg (Negative) 04/06/18 21:14 Urine Nitrite Neg (Negative) 04/06/18 21:14 Urine Bilirubin Neg (Negative) 04/06/18 21:14 Urine Urobilinogen < 2.0 mg/dL (<2.0) 04/06/18 21:14 Ur Leukocyte Esterase Neg (Negative) 04/06/18 21:14 Urine WBC (Auto) 4.0 /HPF (0.0-6.0) 04/06/18 21:14 Urine RBC (Auto) 37.0 /HPF (0.0-6.0) 04/06/18 21:14 U Epithel Cells (Auto) < 1.0 /HPF (0-13.0) 04/06/18 21:14 Amorphous Crystals Few 04/06/18 21:14 Urine Mucus Few /HPF 04/06/18 21:14 C. difficile Toxin A&B Negative (Negative) 04/07/18 Unknown
[2018-04-12] MEDS: LEVAQUIN PO SCH (11:22)
[2018-04-12] MEDS: FLAGYL PO SCH ×2 (14:18→22:40)
[2018-04-13] MEDS: HEPARIN SUB-Q SCH ×3 (05:40→22:41)
[2018-04-13] MEDS: FLAGYL PO SCH ×3 (05:40→22:41)
--- NOTE | 2018-04-13 10:56 | Progress Note ---
Assessment and Plan Assessment and plan: Colitis - on IV flagyl and levaquin - Showed improvement Fecal impaction. GI reports no clinical evidence of significant impaction. GI ordered laxatives with GoLYTELY. Hyponatremia - On IV fluids Distended bladder with mild hydronephrosis ?neurogenic bladder CT scan reveals evidence suspicious of bladder outlet obstruction versus neurogenic bladder. Urology evaluated the patient. Attempt bladder training. CLL. Case management reports patient has old medical records from [facility] that revealed CLL. Oncology consultation Hyponatremia - ON IV fluids Hypokalemia - Repleted - will check potassium as needed DVT prophylaxis - heparin Disposition - continue inpatient care History Interval history: 63-year-old male presented to the emergency department complaining of diarrhea of one month duration. Patient is complaining of abdominal pain and nausea. CT abdomen shows colitis/prostatitis, and bladder distention. Diarrhea has resolved. Patient is being treated for colitis with Flagyl and Levaquin. Fecal impaction resolved with GoLYTELY. Patient with distended bladder with mild hydronephrosis. Urology signed off. Patient awaiting rehabilitation placement. Hospitalist Physical - Constitutional Vitals: Temp Pulse Resp BP Pulse Ox 97.2 F L 75 20 97/62 99 04/13/18 06:45 04/13/18 06:45 04/13/18 06:45 04/13/18 06:45 04/13/18 06:45 General appearance: Present: no acute distress - EENT Eyes: Present: PERRL, EOM intact ENT: hearing intact, clear oral mucosa, dentition normal - Neck Neck: Present: supple, normal ROM - Respiratory Respiratory effort: normal Respiratory: bilateral: CTA - Cardiovascular Rhythm: regular Heart Sounds: Present: S1 & S2. Absent: gallop, rub - Extremities Extremities: no ischemia, No edema, Full ROM - Abdominal General gastrointestinal: soft, non-tender, non-distended, normal bowel sounds - Integumentary Integumentary: Present: clear, warm, dry - Neurologic Neurologic: CNII-XII intact, moves all extremities Results - Labs CBC & Chem 7: 04/09/18 06:32 04/10/18 04:59 Labs: Laboratory Last Values WBC 5.5 K/mm3 (4.5-11.0) 04/09/18 06:32 RBC 3.23 M/mm3 (3.65-5.03) L 04/09/18 06:32 Hgb 9.6 gm/dl (11.8-15.2) L 04/09/18 06:32 Hct 28.9 % (35.5-45.6) L 04/09/18 06:32 MCV 89 fl (84-94) 04/09/18 06:32 MCH 30 pg (28-32) 04/09/18 06:32 MCHC 33 % (32-34) 04/09/18 06:32 RDW 13.4 % (13.2-15.2) 04/09/18 06:32 Plt Count 124 K/mm3 (140-440) L 04/09/18 06:32 Lymph % (Auto) Library Acquisitions Technician 04/09/18 06:32 Lymph # Library Acquisitions Technician 04/06/18 20:05 Add Manual Diff Complete 04/09/18 06:32 Total Counted 100 04/09/18 06:32 Seg Neuts % (Manual) 60.0 % (40.0-70.0) 04/09/18 06:32 Band Neutrophils % 0 % 04/09/18 06:32 Lymphocytes % (Manual) 36.0 % (13.4-35.0) H 04/09/18 06:32 Reactive Lymphs % (Man) 0 % 04/09/18 06:32 Monocytes % (Manual) 4.0 % (0.0-7.3) 18 06:32 Eosinophils % (Manual) 0 % (0.0-4.3) 18 06:32 Basophils % (Manual) 0 % (0.0-1.8) 04/09/18 06:32 Metamyelocytes % 0 % 04/09/18 06:32 Myelocytes % 0 % 04/09/18 06:32 Promyelocytes % 0 % 04/09/18 06:32 Blast Cells % 0 % 04/09/18 06:32 Nucleated RBC % Not Reportable 04/09/18 06:32 Seg Neutrophils # Man 3.3 K/mm3 (1.8-7.7) 04/09/18 06:32 Band Neutrophils # 0.0 K/mm3 04/09/18 06:32 Lymphocytes # (Manual) 2.0 K/mm3 (1.2-5.4) 04/09/18 06:32 Abs React Lymphs (Man) 0.0 K/mm3 04/09/18 06:32 Monocytes # (Manual) 0.2 K/mm3 (0.0-0.8) 04/09/18 06:32 Eosinophils # (Manual) 0.0 K/mm3 (0.0-0.4) 04/09/18 06:32 Basophils # (Manual) 0.0 K/mm3 (0.0-0.1) 04/09/18 06:32 Metamyelocytes # 0.0 K/mm3 04/09/18 06:32 Myelocytes # 0.0 K/mm3 04/09/18 06:32 Promyelocytes # 0.0 K/mm3 04/09/18 06:32 Blast Cells # 0.0 K/mm3 04/09/18 06:32 WBC Morphology Not Reportable 04/09/18 06:32 Hypersegmented Neuts Not Reportable 04/09/18 06:32 Hyposegmented Neuts Not Reportable 04/09/18 06:32 Hypogranular Neuts Not Reportable 04/09/18 06:32 Smudge Cells Not Reportable 04/09/18 06:32 Toxic Granulation Not Reportable 04/09/18 06:32 Toxic Vacuolation Not Reportable 04/09/18 06:32 Dohle Bodies Not Reportable 04/09/18 06:32 Pelger-Huet Anomaly Not Reportable 04/09/18 06:32 Rosario Rods Not Reportable 04/09/18 06:32 Platelet Estimate Consistent w auto 04/09/18 06:32 Clumped Platelets Not Reportable 04/09/18 06:32 Plt Clumps, EDTA Not Reportable 04/09/18 06:32 Large Platelets Not Reportable 04/09/18 06:32 Giant Platelets Not Reportable 04/09/18 06:32 Platelet Satelliting Not Reportable 04/09/18 06:32 Plt Morphology Comment Not Reportable 04/09/18 06:32 RBC Morphology Not Reportable 04/09/18 06:32 Dimorphic RBCs Not Reportable 04/09/18 06:32 Polychromasia Not Reportable 04/09/18 06:32 Hypochromasia Not Reportable 04/09/18 06:32 Poikilocytosis Few 04/09/18 06:32 Anisocytosis 1+ 04/09/18 06:32 Microcytosis Not Reportable 04/09/18 06:32 Macrocytosis Not Reportable 04/09/18 06:32 Spherocytes Not Reportable 04/09/18 06:32 Pappenheimer Bodies Not Reportable 04/09/18 06:32 Sickle Cells Not Reportable 04/09/18 06:32 Target Cells Not Reportable 04/09/18 06:32 Tear Drop Cells Not Reportable 04/09/18 06:32 Ovalocytes Not Reportable 04/09/18 06:32 Helmet Cells Not Reportable 04/09/18 06:32 [place] Bodies Not Reportable 04/09/18 06:32 [place] Rings Not Reportable 04/09/18 06:32 [place] Cells Not Reportable 04/09/18 06:32 Bite Cells Not Reportable 04/09/18 06:32 Crenated Cell Not Reportable 04/09/18 06:32 Elliptocytes Not Reportable 04/09/18 06:32 Acanthocytes (Spur) Not Reportable 04/09/18 06:32 Rouleaux Not Reportable 04/09/18 06:32 Hemoglobin C Crystals Not Reportable 04/09/18 06:32 Schistocytes Not Reportable 04/09/18 06:32 Malaria parasites Not Reportable 04/09/18 06:32 Tristan Bodies Not Reportable 04/09/18 06:32 Hem Pathologist Commnt No 04/09/18 06:32 PT 13.1 Sec. (12.2-14.9) 04/06/18 20:05 INR 0.94 (0.87-1.13) 04/06/18 20:05 Sodium 129 mmol/L (137-145) L 04/10/18 04:59 Potassium 3.5 mmol/L (3.6-5.0) L 04/10/18 04:59 Chloride 90.3 mmol/L (98-107) L 04/10/18 04:59 Carbon Dioxide 22 mmol/L (22-30) 04/10/18 04:59 Anion Gap 20 mmol/L 04/10/18 04:59 BUN 7 mg/dL (9-20) L 04/10/18 04:59 Creatinine 0.5 mg/dL (0.8-1.5) L 04/10/18 04:59 Estimated GFR > 60 ml/min 04/10/18 04:59 BUN/Creatinine Ratio 14 % 04/10/18 04:59 Glucose 97 mg/dL (75-100) 04/10/18 04:59 Calcium 8.3 mg/dL (8.4-10.2) L 04/10/18 04:59 Magnesium 1.10 mg/dL (1.7-2.3) L 04/09/18 09:48 Total Bilirubin 0.50 mg/dL (0.1-1.2) 04/06/18 20:05 Direct Bilirubin < 0.2 mg/dL (0-0.2) 04/06/18 20:05 Indirect Bilirubin 0.3 mg/dL 04/06/18 20:05 AST 12 units/L (5-40) 04/06/18 20:05 ALT 13 units/L (7-56) 04/06/18 20:05 Alkaline Phosphatase 74 units/L (35-129) 04/06/18 20:05 Troponin T < 0.010 ng/mL (0.00-0.029) 04/06/18 21:38 NT-Pro-B Natriuret Pep 44.32 pg/mL (0-900) 04/06/18 20:05 Total Protein 6.2 g/dL (6.3-8.2) L 04/06/18 20:05 Albumin 3.7 g/dL (3.9-5) L 04/06/18 20:05 Albumin/Globulin Ratio 1.5 % 04/06/18 20:05 Amylase 54 units/L (27-131) 04/06/18 20:05 Lipase 46 units/L (13-60) 04/06/18 20:05 Urine Color Yellow (Yellow) 04/06/18 21:14 Urine Turbidity Slightly-cloudy (Clear) 04/06/18 21:14 Urine pH 6.0 (5.0-7.0) 04/06/18 21:14 Ur Specific [place] 1.016 (1.003-1.030) 04/06/18 21:14 Urine Protein <15 mg/dl mg/dL (Negative) 04/06/18 21:14 Urine Glucose (UA) Neg mg/dL (Negative) 04/06/18 21:14 Urine Ketones Neg mg/dL (Negative) 04/06/18 21:14 Urine Blood Lg (Negative) 04/06/18 21:14 Urine Nitrite Neg (Negative) 04/06/18 21:14 Urine Bilirubin Neg (Negative) 04/06/18 21:14 Urine Urobilinogen < 2.0 mg/dL (<2.0) 04/06/18 21:14 Ur Leukocyte Esterase Neg (Negative) 04/06/18 21:14 Urine WBC (Auto) 4.0 /HPF (0.0-6.0) 04/06/18 21:14 Urine RBC (Auto) 37.0 /HPF (0.0-6.0) 04/06/18 21:14 U Epithel Cells (Auto) < 1.0 /HPF (0-13.0) 04/06/18 21:14 Amorphous Crystals Few 04/06/18 21:14 Urine Mucus Few /HPF 04/06/18 21:14 C. difficile Toxin A&B Negative (Negative) 04/07/18 Unknown
[2018-04-13] MEDS: LEVAQUIN PO SCH (11:18)
[2018-04-14] MEDS: FLAGYL PO SCH ×3 (05:10→21:39)
[2018-04-14] MEDS: HEPARIN SUB-Q SCH ×3 (05:10→21:39)
[2018-04-14] MEDS: LEVAQUIN PO SCH (11:42)
--- NOTE | 2018-04-14 12:26 | Progress Note ---
Assessment and Plan Assessment and plan: Colitis - on IV flagyl and levaquin - Showed improvement Fecal impaction. Resolved. GI reports no clinical evidence of significant impaction. GI ordered laxatives with GoLYTELY. Hyponatremia - On IV fluids Distended bladder with mild hydronephrosis ?neurogenic bladder CT scan reveals evidence suspicious of bladder outlet obstruction versus neurogenic bladder. Urology evaluated the patient. Attempt bladder training. CLL. Case management reports patient has old medical records from [facility] that revealed CLL. Oncology consulted Hyponatremia - ON IV fluids Hypokalemia - Repleted - will check potassium as needed DVT prophylaxis - heparin Disposition - continue inpatient care. Awaiting placement History Interval history: 63-year-old male presented to the emergency department complaining of diarrhea of one month duration. Patient is complaining of abdominal pain and nausea. CT abdomen shows colitis/prostatitis, and bladder distention. Diarrhea has resolved. Patient is being treated for colitis with Flagyl and Levaquin. Fecal impaction resolved with GoLYTELY. Patient with distended bladder with mild hydronephrosis. Urology signed off. Patient awaiting rehabilitation placement. Hospitalist Physical - Constitutional Vitals: Temp Pulse Resp BP Pulse Ox 98.0 F 79 18 90/61 98 04/14/18 05:34 04/13/18 17:26 04/14/18 05:34 04/14/18 05:34 04/13/18 17:26 General appearance: Present: no acute distress - EENT Eyes: Present: PERRL, EOM intact ENT: hearing intact, clear oral mucosa, dentition normal - Neck Neck: Present: supple, normal ROM - Respiratory Respiratory effort: normal Respiratory: bilateral: CTA - Cardiovascular Rhythm: regular Heart Sounds: Present: S1 & S2. Absent: gallop, rub - Extremities Extremities: no ischemia, No edema, Full ROM - Abdominal General gastrointestinal: soft, non-tender, non-distended, normal bowel sounds - Integumentary Integumentary: Present: clear, warm, dry - Neurologic Neurologic: CNII-XII intact, moves all extremities Results - Labs CBC & Chem 7: 04/09/18 06:32 04/10/18 04:59 Labs: Laboratory Last Values WBC 5.5 K/mm3 (4.5-11.0) 04/09/18 06:32 RBC 3.23 M/mm3 (3.65-5.03) L 04/09/18 06:32 Hgb 9.6 gm/dl (11.8-15.2) L 04/09/18 06:32 Hct 28.9 % (35.5-45.6) L 04/09/18 06:32 MCV 89 fl (84-94) 04/09/18 06:32 MCH 30 pg (28-32) 04/09/18 06:32 MCHC 33 % (32-34) 04/09/18 06:32 RDW 13.4 % (13.2-15.2) 04/09/18 06:32 Plt Count 124 K/mm3 (140-440) L 04/09/18 06:32 Lymph % (Auto) Cash Specialist 04/09/18 06:32 Lymph # Cash Specialist 04/06/18 20:05 Add Manual Diff Complete 04/09/18 06:32 Total Counted 100 04/09/18 06:32 Seg Neuts % (Manual) 60.0 % (40.0-70.0) 04/09/18 06:32 Band Neutrophils % 0 % 04/09/18 06:32 Lymphocytes % (Manual) 36.0 % (13.4-35.0) H 04/09/18 06:32 Reactive Lymphs % (Man) 0 % 04/09/18 06:32 Monocytes % (Manual) 4.0 % (0.0-7.3) 04/09/18 06:32 Eosinophils % (Manual) 0 % (0.0-4.3) 04/09/18 06:32 Basophils % (Manual) 0 % (0.0-1.8) 04/09/18 06:32 Metamyelocytes % 0 % 04/09/18 06:32 Myelocytes % 0 % 04/09/18 06:32 Promyelocytes % 0 % 04/09/18 06:32 Blast Cells % 0 % 04/09/18 06:32 Nucleated RBC % Not Reportable 04/09/18 06:32 Seg Neutrophils # Man 3.3 K/mm3 (1.8-7.7) 04/09/18 06:32 Band Neutrophils # 0.0 K/mm3 04/09/18 06:32 Lymphocytes # (Manual) 2.0 K/mm3 (1.2-5.4) 04/09/18 06:32 Abs React Lymphs (Man) 0.0 K/mm3 04/09/18 06:32 Monocytes # (Manual) 0.2 K/mm3 (0.0-0.8) 04/09/18 06:32 Eosinophils # (Manual) 0.0 K/mm3 (0.0-0.4) 04/09/18 06:32 Basophils # (Manual) 0.0 K/mm3 (0.0-0.1) 04/09/18 06:32 Metamyelocytes # 0.0 K/mm3 04/09/18 06:32 Myelocytes # 0.0 K/mm3 04/09/18 06:32 Promyelocytes # 0.0 K/mm3 04/09/18 06:32 Blast Cells # 0.0 K/mm3 04/09/18 06:32 WBC Morphology Not Reportable 04/09/18 06:32 Hypersegmented Neuts Not Reportable 04/09/18 06:32 Hyposegmented Neuts Not Reportable 04/09/18 06:32 Hypogranular Neuts Not Reportable 04/09/18 06:32 Smudge Cells Not Reportable 04/09/18 06:32 Toxic Granulation Not Reportable 04/09/18 06:32 Toxic Vacuolation Not Reportable 04/09/18 06:32 Dohle Bodies Not Reportable 04/09/18 06:32 Pelger-Huet Anomaly Not Reportable 04/09/18 06:32 Rosario Rods Not Reportable 04/09/18 06:32 Platelet Estimate Consistent w auto 04/09/18 06:32 Clumped Platelets Not Reportable 04/09/18 06:32 Plt Clumps, EDTA Not Reportable 04/09/18 06:32 Large Platelets Not Reportable 04/09/18 06:32 Giant Platelets Not Reportable 04/09/18 06:32 Platelet Satelliting Not Reportable 04/09/18 06:32 Plt Morphology Comment Not Reportable 04/09/18 06:32 RBC Morphology Not Reportable 04/09/18 06:32 Dimorphic RBCs Not Reportable 04/09/18 06:32 Polychromasia Not Reportable 04/09/18 06:32 Hypochromasia Not Reportable 04/09/18 06:32 Poikilocytosis Few 04/09/18 06:32 Anisocytosis 1+ 04/09/18 06:32 Microcytosis Not Reportable 04/09/18 06:32 Macrocytosis Not Reportable 04/09/18 06:32 Spherocytes Not Reportable 04/09/18 06:32 Pappenheimer Bodies Not Reportable 04/09/18 06:32 Sickle Cells Not Reportable 04/09/18 06:32 Target Cells Not Reportable 04/09/18 06:32 Tear Drop Cells Not Reportable 04/09/18 06:32 Ovalocytes Not Reportable 04/09/18 06:32 Helmet Cells Not Reportable 04/09/18 06:32 [place] Bodies Not Reportable 04/09/18 06:32 [place] Rings Not Reportable 04/09/18 06:32 Sahil Cells Not Reportable 04/09/18 06:32 Bite Cells Not Reportable 04/09/18 06:32 Crenated Cell Not Reportable 04/09/18 06:32 Elliptocytes Not Reportable 04/09/18 06:32 Acanthocytes (Spur) Not Reportable 04/09/18 06:32 Rouleaux Not Reportable 04/09/18 06:32 Hemoglobin C Crystals Not Reportable 04/09/18 06:32 Schistocytes Not Reportable 04/09/18 06:32 Malaria parasites Not Reportable 04/09/18 06:32 Tristan Bodies Not Reportable 04/09/18 06:32 Hem Pathologist Commnt No 04/09/18 06:32 PT 13.1 Sec. (12.2-14.9) 04/06/18 20:05 INR 0.94 (0.87-1.13) 04/06/18 20:05 Sodium 129 mmol/L (137-145) L 04/10/18 04:59 Potassium 3.5 mmol/L (3.6-5.0) L 04/10/18 04:59 Chloride 90.3 mmol/L (98-107) L 04/10/18 04:59 Carbon Dioxide 22 mmol/L (22-30) 04/10/18 04:59 Anion Gap 20 mmol/L 04/10/18 04:59 BUN 7 mg/dL (9-20) L 04/10/18 04:59 Creatinine 0.5 mg/dL (0.8-1.5) L 04/10/18 04:59 Estimated GFR > 60 ml/min 04/10/18 04:59 BUN/Creatinine Ratio 14 % 04/10/18 04:59 Glucose 97 mg/dL (75-100) 04/10/18 04:59 Calcium 8.3 mg/dL (8.4-10.2) L 04/10/18 04:59 Magnesium 1.10 mg/dL (1.7-2.3) L 04/09/18 09:48 Total Bilirubin 0.50 mg/dL (0.1-1.2) 04/06/18 20:05 Direct Bilirubin < 0.2 mg/dL (0-0.2) 04/06/18 20:05 Indirect Bilirubin 0.3 mg/dL 04/06/18 20:05 AST 12 units/L (5-40) 04/06/18 20:05 ALT 13 units/L (7-56) 04/06/18 20:05 Alkaline Phosphatase 74 units/L (35-129) 04/06/18 20:05 Troponin T < 0.010 ng/mL (0.00-0.029) 04/06/18 21:38 NT-Pro-B Natriuret Pep 44.32 pg/mL (0-900) 04/06/18 20:05 Total Protein 6.2 g/dL (6.3-8.2) L 04/06/18 20:05 Albumin 3.7 g/dL (3.9-5) L 04/06/18 20:05 Albumin/Globulin Ratio 1.5 % 04/06/18 20:05 Amylase 54 units/L (27-131) 04/06/18 20:05 Lipase 46 units/L (13-60) 04/06/18 20:05 Urine Color Yellow (Yellow) 04/06/18 21:14 Urine Turbidity Slightly-cloudy (Clear) 04/06/18 21:14 Urine pH 6.0 (5.0-7.0) 04/06/18 21:14 Ur Specific Paradox 1.016 (1.003-1.030) 04/06/18 21:14 Urine Protein <15 mg/dl mg/dL (Negative) 04/06/18 21:14 Urine Glucose (UA) Neg mg/dL (Negative) 04/06/18 21:14 Urine Ketones Neg mg/dL (Negative) 04/06/18 21:14 Urine Blood Lg (Negative) 04/06/18 21:14 Urine Nitrite Neg (Negative) 04/06/18 21:14 Urine Bilirubin Neg (Negative) 04/06/18 21:14 Urine Urobilinogen < 2.0 mg/dL (<2.0) 04/06/18 21:14 Ur Leukocyte Esterase Neg (Negative) 04/06/18 21:14 Urine WBC (Auto) 4.0 /HPF (0.0-6.0) 04/06/18 21:14 Urine RBC (Auto) 37.0 /HPF (0.0-6.0) 04/06/18 21:14 U Epithel Cells (Auto) < 1.0 /HPF (0-13.0) 04/06/18 21:14 Amorphous Crystals Few 04/06/18 21:14 Urine Mucus Few /HPF 04/06/18 21:14 C. difficile Toxin A&B Negative (Negative) 04/07/18 Unknown
[2018-04-14] MEDS: TYLENOL PO PRN (15:45)
[2018-04-15] MEDS: HEPARIN SUB-Q SCH ×3 (06:22→21:53)
[2018-04-15] MEDS: TYLENOL PO PRN (14:13)
--- NOTE | 2018-04-15 16:22 | Progress Note ---
Assessment and Plan - Patient Problems (1) Colitis Current Visit: Yes Status: Acute Plan to address problem: Mellitus has resolved. Unfortunately patient has debility. And will require placement. (2) CLL (chronic lymphocytic leukemia) Current Visit: Yes Status: Acute Plan to address problem: We'll follow up as outpatient. Patient hemoglobin and hematocrit chemistries appear to be stable at this time. (3) Acute hyponatremia Current Visit: Yes Status: Resolved (4) Urinary retention Current Visit: Yes Status: Acute Plan to address problem: Patient currently has urinary catheter. Followed by urology appears to have some degree of neurogenic bladder. Awaiting placement. Subjective Date of service: 04/15/18 Principal diagnosis: diarrhea Interval history: Patient actually is much improved. No diarrhea. Able to tell me he feels stronger. States his heels hurt sometimes. Objective - Constitutional Vitals: Vital Signs - 12hr 04/15/18 04/15/18 05:47 11:37 Temperature 97.7 F 99.4 F Pulse Rate 83 73 Respiratory 16 19 Rate Blood Pressure 97/59 107/64 O2 Sat by Pulse 99 99 Oximetry General appearance: Present: no acute distress - EENT Eyes: PERRL, EOM intact ENT: hearing intact, clear oral mucosa, dentition normal, no oropharyngeal erythema, no poor dentition, no thrush - Neck Neck: supple, normal ROM - Respiratory Respiratory effort: normal Respiratory: bilateral: CTA - Cardiovascular Rhythm: regularly irregular Heart Sounds: Present: S1 & S2 Extremities: pulses intact, No edema, normal color, Full ROM - Gastrointestinal General gastrointestinal: Present: soft, non-distended, distended, normal bowel sounds. Absent: hypoactive bowel sounds, absent bowel sounds, hepatomegaly, splenomegaly - Musculoskeletal Musculoskeletal: generalized weakness - Neurologic Neurologic: moves all extremities - Psychiatric Psychiatric: memory intact, appropriate mood/affect, intact judgment & insight - Labs CBC & Chem 7: 04/09/18 06:32 04/10/18 04:59
[2018-04-16] MEDS: HEPARIN SUB-Q SCH ×3 (05:23→21:11)
--- NOTE | 2018-04-16 12:59 | Progress Note ---
Assessment and Plan - Patient Problems (1) Colitis Current Visit: Yes Status: Resolved Plan to address problem: Mellitus has resolved. Unfortunately patient has debility. And will require placement. (2) CLL (chronic lymphocytic leukemia) Current Visit: Yes Status: Acute Plan to address problem: We'll follow up as outpatient. Patient hemoglobin and hematocrit chemistries appear to be stable at this time. (3) Acute hyponatremia Current Visit: Yes Status: Resolved (4) Urinary retention Current Visit: Yes Status: Acute Plan to address problem: Patient currently has urinary catheter. Followed by urology appears to have some degree of neurogenic bladder. Awaiting placement. History Interval history: Attempts to get patient up and walking has failed today. Patient stated feeling weak and pain. Still awaiting placement. No insurance source. Patient does have a history of CLL and has been seen in the [facility]. Still awaiting records. Hospitalist Physical - Constitutional Vitals: Temp Pulse Resp BP Pulse Ox 97.4 F L 93 H 20 93/57 99 04/16/18 12:53 04/16/18 12:53 04/16/18 12:53 04/16/18 12:53 04/16/18 12:53 General appearance: Present: no acute distress - EENT Eyes: Present: PERRL, EOM intact, exopthalmos ENT: hearing intact, clear oral mucosa, dentition normal, hearing decreased, poor dentition, thrush - Neck Neck: Present: supple, normal ROM, rigidity. Absent: enlarged thyroid, masses or JVD, cervical LAD, carotid bruits - Respiratory Respiratory effort: normal Respiratory: bilateral: CTA - Cardiovascular Heart Sounds: Present: S1 & S2 - Extremities Extremities: no ischemia, pulses intact Extremity abnormal: pulses diminished, tenderness Peripheral Pulses: within normal limits - Abdominal General gastrointestinal: soft, non-tender, non-distended, normal bowel sounds, no hepatomegaly, no splenomegaly, no mass, no hernia - Integumentary Integumentary: Present: clear, warm, dry - Psychiatric Psychiatric: other (poor insight into disease poor cognition.) - Neurologic Neurologic: CNII-XII intact, focal deficits Results - Labs CBC & Chem 7: 04/09/18 06:32 04/10/18 04:59 Labs: Laboratory Last Values WBC 5.5 K/mm3 (4.5-11.0) 04/09/18 06:32 RBC 3.23 M/mm3 (3.65-5.03) L 04/09/18 06:32 Hgb 9.6 gm/dl (11.8-15.2) L 04/09/18 06:32 Hct 28.9 % (35.5-45.6) L 04/09/18 06:32 MCV 89 fl (84-94) 04/09/18 06:32 MCH 30 pg (28-32) 04/09/18 06:32 MCHC 33 % (32-34) 04/09/18 06:32 RDW 13.4 % (13.2-15.2) 04/09/18 06:32 Plt Count 124 K/mm3 (140-440) L 04/09/18 06:32 Lymph % (Auto) Bore Miner Operator 04/09/18 06:32 Lymph # Bore Miner Operator 04/06/18 20:05 Add Manual Diff Complete 04/09/18 06:32 Total Counted 100 04/09/18 06:32 Seg Neuts % (Manual) 60.0 % (40.0-70.0) 04/09/18 06:32 Band Neutrophils % 0 % 04/09/18 06:32 Lymphocytes % (Manual) 36.0 % (13.4-35.0) H 04/09/18 06:32 Reactive Lymphs % (Man) 0 % 04/09/18 06:32 Monocytes % (Manual) 4.0 % (0.0-7.3) 04/09/18 06:32 Eosinophils % (Manual) 0 % (0.0-4.3) 04/09/18 06:32 Basophils % (Manual) 0 % (0.0-1.8) 04/09/18 06:32 Metamyelocytes % 0 % 04/09/18 06:32 Myelocytes % 0 % 04/09/18 06:32 Promyelocytes % 0 % 04/09/18 06:32 Blast Cells % 0 % 04/09/18 06:32 Nucleated RBC % Not Reportable 04/09/18 06:32 Seg Neutrophils # Man 3.3 K/mm3 (1.8-7.7) 04/09/18 06:32 Band Neutrophils # 0.0 K/mm3 04/09/18 06:32 Lymphocytes # (Manual) 2.0 K/mm3 (1.2-5.4) 04/09/18 06:32 Abs React Lymphs (Man) 0.0 K/mm3 04/09/18 06:32 Monocytes # (Manual) 0.2 K/mm3 (0.0-0.8) 04/09/18 06:32 Eosinophils # (Manual) 0.0 K/mm3 (0.0-0.4) 04/09/18 06:32 Basophils # (Manual) 0.0 K/mm3 (0.0-0.1) 04/09/18 06:32 Metamyelocytes # 0.0 K/mm3 04/09/18 06:32 Myelocytes # 0.0 K/mm3 04/09/18 06:32 Promyelocytes # 0.0 K/mm3 04/09/18 06:32 Blast Cells # 0.0 K/mm3 04/09/18 06:32 WBC Morphology Not Reportable 04/09/18 06:32 Hypersegmented Neuts Not Reportable 04/09/18 06:32 Hyposegmented Neuts Not Reportable 04/09/18 06:32 Hypogranular Neuts Not Reportable 04/09/18 06:32 Smudge Cells Not Reportable 04/09/18 06:32 Toxic Granulation Not Reportable 04/09/18 06:32 Toxic Vacuolation Not Reportable 04/09/18 06:32 Dohle Bodies Not Reportable 04/09/18 06:32 Pelger-Huet Anomaly Not Reportable 04/09/18 06:32 Rosario Rods Not Reportable 04/09/18 06:32 Platelet Estimate Consistent w auto 04/09/18 06:32 Clumped Platelets Not Reportable 04/09/18 06:32 Plt Clumps, EDTA Not Reportable 04/09/18 06:32 Large Platelets Not Reportable 04/09/18 06:32 Giant Platelets Not Reportable 04/09/18 06:32 Platelet Satelliting Not Reportable 04/09/18 06:32 Plt Morphology Comment Not Reportable 04/09/18 06:32 RBC Morphology Not Reportable 04/09/18 06:32 Dimorphic RBCs Not Reportable 04/09/18 06:32 Polychromasia Not Reportable 04/09/18 06:32 Hypochromasia Not Reportable 04/09/18 06:32 Poikilocytosis Few 04/09/18 06:32 Anisocytosis 1+ 04/09/18 06:32 Microcytosis Not Reportable 04/09/18 06:32 Macrocytosis Not Reportable 04/09/18 06:32 Spherocytes Not Reportable 04/09/18 06:32 Pappenheimer Bodies Not Reportable 04/09/18 06:32 Sickle Cells Not Reportable 04/09/18 06:32 Target Cells Not Reportable 04/09/18 06:32 Tear Drop Cells Not Reportable 04/09/18 06:32 Ovalocytes Not Reportable 04/09/18 06:32 Helmet Cells Not Reportable 04/09/18 06:32 [place] Bodies Not Reportable 04/09/18 06:32 [place] Rings Not Reportable 04/09/18 06:32 [place] Cells Not Reportable 04/09/18 06:32 Bite Cells Not Reportable 04/09/18 06:32 Crenated Cell Not Reportable 04/09/18 06:32 Elliptocytes Not Reportable 04/09/18 06:32 Acanthocytes (Spur) Not Reportable 04/09/18 06:32 Rouleaux Not Reportable 04/09/18 06:32 Hemoglobin C Crystals Not Reportable 04/09/18 06:32 Schistocytes Not Reportable 04/09/18 06:32 Malaria parasites Not Reportable 04/09/18 06:32 Tristan Bodies Not Reportable 04/09/18 06:32 Hem Pathologist Commnt No 04/09/18 06:32 PT 13.1 Sec. (12.2-14.9) 04/06/18 20:05 INR 0.94 (0.87-1.13) 04/06/18 20:05 Sodium 129 mmol/L (137-145) L 04/10/18 04:59 Potassium 3.5 mmol/L (3.6-5.0) L 04/10/18 04:59 Chloride 90.3 mmol/L (98-107) L 04/10/18 04:59 Carbon Dioxide 22 mmol/L (22-30) 04/10/18 04:59 Anion Gap 20 mmol/L 04/10/18 04:59 BUN 7 mg/dL (9-20) L 04/10/18 04:59 Creatinine 0.5 mg/dL (0.8-1.5) L 04/10/18 04:59 Estimated GFR > 60 ml/min 04/10/18 04:59 BUN/Creatinine Ratio 14 % 04/10/18 04:59 Glucose 97 mg/dL (75-100) 04/10/18 04:59 Calcium 8.3 mg/dL (8.4-10.2) L 04/10/18 04:59 Magnesium 1.10 mg/dL (1.7-2.3) L 04/09/18 09:48 Total Bilirubin 0.50 mg/dL (0.1-1.2) 04/06/18 20:05 Direct Bilirubin < 0.2 mg/dL (0-0.2) 04/06/18 20:05 Indirect Bilirubin 0.3 mg/dL 04/06/18 20:05 AST 12 units/L (5-40) 04/06/18 20:05 ALT 13 units/L (7-56) 04/06/18 20:05 Alkaline Phosphatase 74 units/L (35-129) 04/06/18 20:05 Troponin T < 0.010 ng/mL (0.00-0.029) 04/06/18 21:38 NT-Pro-B Natriuret Pep 44.32 pg/mL (0-900) 04/06/18 20:05 Total Protein 6.2 g/dL (6.3-8.2) L 04/06/18 20:05 Albumin 3.7 g/dL (3.9-5) L 04/06/18 20:05 Albumin/Globulin Ratio 1.5 % 04/06/18 20:05 Amylase 54 units/L (27-131) 04/06/18 20:05 Lipase 46 units/L (13-60) 04/06/18 20:05 Urine Color Yellow (Yellow) 04/06/18 21:14 Urine Turbidity Slightly-cloudy (Clear) 04/06/18 21:14 Urine pH 6.0 (5.0-7.0) 04/06/18 21:14 Ur Specific [place] 1.016 (1.003-1.030) 04/06/18 21:14 Urine Protein <15 mg/dl mg/dL (Negative) 04/06/18 21:14 Urine Glucose (UA) Neg mg/dL (Negative) 04/06/18 21:14 Urine Ketones Neg mg/dL (Negative) 04/06/18 21:14 Urine Blood Lg (Negative) 04/06/18 21:14 Urine Nitrite Neg (Negative) 04/06/18 21:14 Urine Bilirubin Neg (Negative) 04/06/18 21:14 Urine Urobilinogen < 2.0 mg/dL (<2.0) 04/06/18 21:14 Ur Leukocyte Esterase Neg (Negative) 04/06/18 21:14 Urine WBC (Auto) 4.0 /HPF (0.0-6.0) 04/06/18 21:14 Urine RBC (Auto) 37.0 /HPF (0.0-6.0) 04/06/18 21:14 U Epithel Cells (Auto) < 1.0 /HPF (0-13.0) 04/06/18 21:14 Amorphous Crystals Few 04/06/18 21:14 Urine Mucus Few /HPF 04/06/18 21:14 C. difficile Toxin A&B Negative (Negative) 04/07/18 Unknown
[2018-04-16] MEDS: TYLENOL PO PRN ×2 (14:21→21:09)
[2018-04-17] MEDS: HEPARIN SUB-Q SCH ×3 (06:39→22:18)
--- NOTE | 2018-04-17 09:02 | Progress Note ---
Assessment and Plan Assessment and plan: 63-year-old male presented to the emergency department complaining of diarrhea of one month duration. Patient is complaining of abdominal pain and nausea. CT abdomen shows colitis/prostatitis, and bladder distention Diarrhea colitis -Treated with IV flagyl and levaquin and resolved - GI consult appreciated Patient the developed constipation - Treated with MiraLAX per GI Hyponatremia -Resolved Distended bladder with mild hydronephrosis, ?neurogenic bladder - Urology consult appreciated. Hypokalemia - Repleted CLL - Per the record from [facility] - Oncology consulted Deconditioning - PT recommended subacute rehabilitation DVT prophylaxis - heparin Disposition -Patient is unfunded and need Rehab placement -Will discuss with CM History Interval history: Patient was seen and evaluated this morning, no new complaints today. Hospitalist Physical - Physical exam Narrative exam: Not in cardiopulmonary distress. The patient appeared well nourished and normally developed. Vital signs as documented. Head exam is unremarkable. No scleral icterus . Neck is without jugular venous distension, thyromegaly, or carotid bruits. Lungs are clear to auscultation. Cardiac exam reveals regular rate and Rhythm. Abdominal exam reveals normal bowel sounds. Extremities are nonedematous and both femoral and pedal pulses are normal. 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 No focal weakness. - Constitutional Vitals: Temp Pulse Resp BP Pulse Ox 98.6 F 70 20 125/65 100 04/17/18 05:19 04/17/18 05:19 04/17/18 05:19 04/17/18 05:19 04/17/18 05:19 General appearance: Present: no acute distress Results - Labs CBC & Chem 7: 04/09/18 06:32 04/10/18 04:59 Labs: Laboratory Last Values WBC 5.5 K/mm3 (4.5-11.0) 04/09/18 06:32 RBC 3.23 M/mm3 (3.65-5.03) L 04/09/18 06:32 Hgb 9.6 gm/dl (11.8-15.2) L 04/09/18 06:32 Hct 28.9 % (35.5-45.6) L 04/09/18 06:32 MCV 89 fl (84-94) 04/09/18 06:32 MCH 30 pg (28-32) 04/09/18 06:32 MCHC 33 % (32-34) 04/09/18 06:32 RDW 13.4 % (13.2-15.2) 04/09/18 06:32 Plt Count 124 K/mm3 (140-440) L 04/09/18 06:32 Lymph % (Auto) Window Cutter 04/09/18 06:32 Lymph # Window Cutter 04/06/18 20:05 Add Manual Diff Complete 04/09/18 06:32 Total Counted 100 04/09/18 06:32 Seg Neuts % (Manual) 60.0 % (40.0-70.0) 04/09/18 06:32 Band Neutrophils % 0 % 04/09/18 06:32 Lymphocytes % (Manual) 36.0 % (13.4-35.0) H 04/09/18 06:32 Reactive Lymphs % (Man) 0 % 04/09/18 06:32 Monocytes % (Manual) 4.0 % (0.0-7.3) 04/09/18 06:32 Eosinophils % (Manual) 0 % (0.0-4.3) 04/09/18 06:32 Basophils % (Manual) 0 % (0.0-1.8) 04/09/18 06:32 Metamyelocytes % 0 % 04/09/18 06:32 Myelocytes % 0 % 04/09/18 06:32 Promyelocytes % 0 % 04/09/18 06:32 Blast Cells % 0 % 04/09/18 06:32 Nucleated RBC % Not Reportable 04/09/18 06:32 Seg Neutrophils # Man 3.3 K/mm3 (1.8-7.7) 04/09/18 06:32 Band Neutrophils # 0.0 K/mm3 04/09/18 06:32 Lymphocytes # (Manual) 2.0 K/mm3 (1.2-5.4) 04/09/18 06:32 Abs React Lymphs (Man) 0.0 K/mm3 04/09/18 06:32 Monocytes # (Manual) 0.2 K/mm3 (0.0-0.8) 04/09/18 06:32 Eosinophils # (Manual) 0.0 K/mm3 (0.0-0.4) 04/09/18 06:32 Basophils # (Manual) 0.0 K/mm3 (0.0-0.1) 04/09/18 06:32 Metamyelocytes # 0.0 K/mm3 04/09/18 06:32 Myelocytes # 0.0 K/mm3 04/09/18 06:32 Promyelocytes # 0.0 K/mm3 04/09/18 06:32 Blast Cells # 0.0 K/mm3 04/09/18 06:32 WBC Morphology Not Reportable 04/09/18 06:32 Hypersegmented Neuts Not Reportable 04/09/18 06:32 Hyposegmented Neuts Not Reportable 04/09/18 06:32 Hypogranular Neuts Not Reportable 04/09/18 06:32 Smudge Cells Not Reportable 04/09/18 06:32 Toxic Granulation Not Reportable 04/09/18 06:32 Toxic Vacuolation Not Reportable 04/09/18 06:32 Dohle Bodies Not Reportable 04/09/18 06:32 Pelger-Huet Anomaly Not Reportable 04/09/18 06:32 Rosario Rods Not Reportable 04/09/18 06:32 Platelet Estimate Consistent w auto 04/09/18 06:32 Clumped Platelets Not Reportable 04/09/18 06:32 Plt Clumps, EDTA Not Reportable 04/09/18 06:32 Large Platelets Not Reportable 04/09/18 06:32 Giant Platelets Not Reportable 04/09/18 06:32 Platelet Satelliting Not Reportable 04/09/18 06:32 Plt Morphology Comment Not Reportable 04/09/18 06:32 RBC Morphology Not Reportable 04/09/18 06:32 Dimorphic RBCs Not Reportable 04/09/18 06:32 Polychromasia Not Reportable 04/09/18 06:32 Hypochromasia Not Reportable 04/09/18 06:32 Poikilocytosis Few 04/09/18 06:32 Anisocytosis 1+ 04/09/18 06:32 Microcytosis Not Reportable 04/09/18 06:32 Macrocytosis Not Reportable 04/09/18 06:32 Spherocytes Not Reportable 04/09/18 06:32 Pappenheimer Bodies Not Reportable 04/09/18 06:32 Sickle Cells Not Reportable 04/09/18 06:32 Target Cells Not Reportable 04/09/18 06:32 Tear Drop Cells Not Reportable 04/09/18 06:32 Ovalocytes Not Reportable 04/09/18 06:32 Helmet Cells Not Reportable 04/09/18 06:32 [place] Bodies Not Reportable 04/09/18 06:32 [place] Rings Not Reportable 04/09/18 06:32 [place] Cells Not Reportable 04/09/18 06:32 Bite Cells Not Reportable 04/09/18 06:32 Crenated Cell Not Reportable 04/09/18 06:32 Elliptocytes Not Reportable 04/09/18 06:32 Acanthocytes (Spur) Not Reportable 04/09/18 06:32 Rouleaux Not Reportable 04/09/18 06:32 Hemoglobin C Crystals Not Reportable 04/09/18 06:32 Schistocytes Not Reportable 04/09/18 06:32 Malaria parasites Not Reportable 04/09/18 06:32 Tristan Bodies Not Reportable 04/09/18 06:32 Hem Pathologist Commnt No 04/09/18 06:32 PT 13.1 Sec. (12.2-14.9) 04/06/18 20:05 INR 0.94 (0.87-1.13) 04/06/18 20:05 Sodium 129 mmol/L (137-145) L 04/10/18 04:59 Potassium 3.5 mmol/L (3.6-5.0) L 04/10/18 04:59 Chloride 90.3 mmol/L (98-107) L 04/10/18 04:59 Carbon Dioxide 22 mmol/L (22-30) 04/10/18 04:59 Anion Gap 20 mmol/L 04/10/18 04:59 BUN 7 mg/dL (9-20) L 04/10/18 04:59 Creatinine 0.5 mg/dL (0.8-1.5) L 04/10/18 04:59 Estimated GFR > 60 ml/min 04/10/18 04:59 BUN/Creatinine Ratio 14 % 04/10/18 04:59 Glucose 97 mg/dL (75-100) 04/10/18 04:59 Calcium 8.3 mg/dL (8.4-10.2) L 04/10/18 04:59 Magnesium 1.10 mg/dL (1.7-2.3) L 04/09/18 09:48 Total Bilirubin 0.50 mg/dL (0.1-1.2) 04/06/18 20:05 Direct Bilirubin < 0.2 mg/dL (0-0.2) 04/06/18 20:05 Indirect Bilirubin 0.3 mg/dL 04/06/18 20:05 AST 12 units/L (5-40) 04/06/18 20:05 ALT 13 units/L (7-56) 04/06/18 20:05 Alkaline Phosphatase 74 units/L (35-129) 04/06/18 20:05 Troponin T < 0.010 ng/mL (0.00-0.029) 04/06/18 21:38 NT-Pro-B Natriuret Pep 44.32 pg/mL (0-900) 04/06/18 20:05 Total Protein 6.2 g/dL (6.3-8.2) L 04/06/18 20:05 Albumin 3.7 g/dL (3.9-5) L 04/06/18 20:05 Albumin/Globulin Ratio 1.5 % 04/06/18 20:05 Amylase 54 units/L (27-131) 04/06/18 20:05 Lipase 46 units/L (13-60) 04/06/18 20:05 Urine Color Yellow (Yellow) 04/06/18 21:14 Urine Turbidity Slightly-cloudy (Clear) 04/06/18 21:14 Urine pH 6.0 (5.0-7.0) 04/06/18 21:14 Ur Specific [place] 1.016 (1.003-1.030) 04/06/18 21:14 Urine Protein <15 mg/dl mg/dL (Negative) 04/06/18 21:14 Urine Glucose (UA) Neg mg/dL (Negative) 04/06/18 21:14 Urine Ketones Neg mg/dL (Negative) 04/06/18 21:14 Urine Blood Lg (Negative) 04/06/18 21:14 Urine Nitrite Neg (Negative) 04/06/18 21:14 Urine Bilirubin Neg (Negative) 04/06/18 21:14 Urine Urobilinogen < 2.0 mg/dL (<2.0) 04/06/18 21:14 Ur Leukocyte Esterase Neg (Negative) 04/06/18 21:14 Urine WBC (Auto) 4.0 /HPF (0.0-6.0) 04/06/18 21:14 Urine RBC (Auto) 37.0 /HPF (0.0-6.0) 04/06/18 21:14 U Epithel Cells (Auto) < 1.0 /HPF (0-13.0) 04/06/18 21:14 Amorphous Crystals Few 04/06/18 21:14 Urine Mucus Few /HPF 04/06/18 21:14 C. difficile Toxin A&B Negative (Negative) 04/07/18 Unknown
--- NOTE | 2018-04-17 13:18 | Hem/Onc Consultation ---
History of Present Illness - Reason for Consult Consult date: 04/17/18 h/o CLL Requesting physician: THEODORE CIFUENTES - History of Present Illness pt says he has been following dr cole in [facility] [place] - for ? CLL pt speaks south eastern language with some djiboutian. Information source - pt and medical notes. 64-year-old male presented to the emergency department with complaints of watery diarrhea over the last 30 days. Patient said the diarrhea is massive couldn't count because he is using diaper. Patient is also complaining abdominal bloating, abdominal pain. Pain is on the mid abdomen. Squeezing type , 10 out of 10 in intensity, with no radiation, no aggravating or alleviating factors identified. Patient said he took antibiotics after the start of area with some relief. Patient didn't have any recent travel to [place] Patient said he has fever. Past History Past Medical History: other (? CLL) Past Surgical History: No surgical history Social history: full code. denies: smoking, alcohol abuse, prescription drug abuse, IV drug use Family history: no significant family history Medications and Allergies Allergies Allergy/AdvReac Type Severity Reaction Status Date / Time No Known Allergies Allergy Unverified 04/02/18 17:47 Home Medications Medication Instructions Recorded Confirmed Last Taken Type Colace Clear 200 mg PO DAILY 04/06/18 04/06/18 Unknown History Ibuprofen 600 mg PO DAILY 04/06/18 04/06/18 Unknown History Imbruvica 420 mg PO DAILY 04/06/18 04/06/18 Unknown History Naproxen 500 mg PO BID 04/06/18 04/06/18 Unknown History Tamsulosin 0.4 mg PO DAILY 04/06/18 04/06/18 Unknown History Zoloft 50 mg PO DAILY 04/06/18 04/06/18 Unknown History traZODone 150 mg PO HS 04/06/18 04/06/18 Unknown History Active Meds: Active Medications Acetaminophen (Tylenol) 650 mg PO Q6H PRN PRN Reason: Pain, Mild (1-3) Last Admin: 04/16/18 21:09 Dose: 650 mg Heparin Sodium (Porcine) (Heparin) 5,000 unit SUB-Q Q8HR LUCI Last Admin: 04/17/18 06:39 Dose: 5,000 unit Ondansetron HCl (Zofran) 4 mg IV Q8H PRN PRN Reason: N/V unrelieved by Reglan Review of Systems Constitutional: weakness Ears, nose, mouth and throat: no epistaxis Respiratory: no cough Gastrointestinal: abdominal pain, diarrhea Integumentary: no rash Neurological: no head injury Hematologic/Lymphatic: no easy bleeding Exam - Constitutional Vitals: Last Vital Signs Temp 99.6 F 04/17/18 12:25 Pulse 75 04/17/18 12:25 Resp 20 04/17/18 12:25 BP 117/57 04/17/18 12:25 Pulse Ox 99 04/17/18 12:25 Pain Intensity (0-10): 1 General appearance: no acute distress Performance status: 2- selfcare, ambulatory - EENT Eyes: PERRL ENT: clear oral mucosa Lymph node exam: negative cervical, negative supraclavicular - Neck Neck: supple - Respiratory Respiratory effort: Positive: normal Respiratory: negative: CTA - Cardiovascular Heart Sounds: Present: S1 & S2 Extremities: No edema - Gastrointestinal General gastrointestinal: Present: soft, non-distended Rectal Exam: deferred - Genitourinary Male genitourinary: Present: deferred - Integumentary Integumentary: warm - Musculoskeletal Musculoskeletal: strength equal bilaterally - Neurologic Neurologic: moves all extremities Results - Imaging and cardiology CT scan - abdomen: report reviewed (04/06) Assessment and Plan # h/o CLL as per notes pt says he follows Dr Cole in [place]/ [facility] WBC not elevated # mild anemia - normal MCV # Mild thormbocytopenia - no bleeding # admitted for watery diarrhea over the last 30 days. Patient is also complaining abdominal bloating, abdominal pain. Pain is on the mid abdomen. Patient said he has fever. Will d/w Dr Cole - as I am not able to get extensive history reg the patient' s CLL - Patient Problems (1) CLL (chronic lymphocytic leukemia) Onset Date: ~04/17/18 Current Visit: Yes Status: Acute
[2018-04-18] MEDS: HEPARIN SUB-Q SCH ×3 (05:57→22:45)
--- NOTE | 2018-04-18 08:37 | Progress Note ---
Assessment and Plan Assessment and plan: 63-year-old male presented to the emergency department complaining of diarrhea of one month duration. Patient is complaining of abdominal pain and nausea. CT abdomen shows colitis/prostatitis, and bladder distention Diarrhea colitis -Treated with IV flagyl and levaquin and resolved - GI consult appreciated Patient the developed constipation - Treated with MiraLAX per GI Hyponatremia -Resolved Distended bladder with mild hydronephrosis, ?neurogenic bladder - Urology consult appreciated. Hypokalemia - Repleted CLL - Per the record from [facility] - Oncology consulted Deconditioning - PT recommended subacute rehabilitation DVT prophylaxis - heparin Disposition -Patient is unfunded and need Rehab placement - patient is stable to be discharged to SNF History Interval history: Patient was seen and evaluated this morning, no diarrhea. Hospitalist Physical - Physical exam Narrative exam: Not in cardiopulmonary distress. The patient appeared well nourished and normally developed. Vital signs as documented. Head exam is unremarkable. No scleral icterus . Neck is without jugular venous distension, thyromegaly, or carotid bruits. Lungs are clear to auscultation. Cardiac exam reveals regular rate and Rhythm. Abdominal exam reveals normal bowel sounds. Extremities are nonedematous and both femoral and pedal pulses are normal. CYLINDER CHECKER: Alert and oriented 3. No focal weakness. - Constitutional Vitals: Temp Pulse Resp BP Pulse Ox 98.7 F 73 20 101/61 100 04/18/18 05:29 04/18/18 05:29 04/18/18 05:29 04/18/18 05:29 04/18/18 05:29 General appearance: Present: no acute distress Results - Labs CBC & Chem 7: 04/09/18 06:32 04/10/18 04:59 Labs: Laboratory Last Values WBC 5.5 K/mm3 (4.5-11.0) 04/09/18 06:32 RBC 3.23 M/mm3 (3.65-5.03) L 04/09/18 06:32 Hgb 9.6 gm/dl (11.8-15.2) L 04/09/18 06:32 Hct 28.9 % (35.5-45.6) L 04/09/18 06:32 MCV 89 fl (84-94) 04/09/18 06:32 MCH 30 pg (28-32) 04/09/18 06:32 MCHC 33 % (32-34) 04/09/18 06:32 RDW 13.4 % (13.2-15.2) 04/09/18 06:32 Plt Count 124 K/mm3 (140-440) L 04/09/18 06:32 Lymph % (Auto) [place] 04/09/18 06:32 Lymph # [place] 04/06/18 20:05 Add Manual Diff Complete 04/09/18 06:32 Total Counted 100 04/09/18 06:32 Seg Neuts % (Manual) 60.0 % (40.0-70.0) 04/09/18 06:32 Band Neutrophils % 0 % 04/09/18 06:32 Lymphocytes % (Manual) 36.0 % (13.4-35.0) H 04/09/18 06:32 Reactive Lymphs % (Man) 0 % 04/09/18 06:32 Monocytes % (Manual) 4.0 % (0.0-7.3) 04/09/18 06:32 Eosinophils % (Manual) 0 % (0.0-4.3) 04/09/18 06:32 Basophils % (Manual) 0 % (0.0-1.8) 04/09/18 06:32 Metamyelocytes % 0 % 04/09/18 06:32 Myelocytes % 0 % 04/09/18 06:32 Promyelocytes % 0 % 04/09/18 06:32 Blast Cells % 0 % 04/09/18 06:32 Nucleated RBC % Not Reportable 04/09/18 06:32 Seg Neutrophils # Man 3.3 K/mm3 (1.8-7.7) 04/09/18 06:32 Band Neutrophils # 0.0 K/mm3 04/09/18 06:32 Lymphocytes # (Manual) 2.0 K/mm3 (1.2-5.4) 04/09/18 06:32 Abs React Lymphs (Man) 0.0 K/mm3 04/09/18 06:32 Monocytes # (Manual) 0.2 K/mm3 (0.0-0.8) 04/09/18 06:32 Eosinophils # (Manual) 0.0 K/mm3 (0.0-0.4) 04/09/18 06:32 Basophils # (Manual) 0.0 K/mm3 (0.0-0.1) 04/09/18 06:32 Metamyelocytes # 0.0 K/mm3 04/09/18 06:32 Myelocytes # 0.0 K/mm3 04/09/18 06:32 Promyelocytes # 0.0 K/mm3 04/09/18 06:32 Blast Cells # 0.0 K/mm3 04/09/18 06:32 WBC Morphology Not Reportable 04/09/18 06:32 Hypersegmented Neuts Not Reportable 04/09/18 06:32 Hyposegmented Neuts Not Reportable 04/09/18 06:32 Hypogranular Neuts Not Reportable 04/09/18 06:32 Smudge Cells Not Reportable 04/09/18 06:32 Toxic Granulation Not Reportable 04/09/18 06:32 Toxic Vacuolation Not Reportable 04/09/18 06:32 Dohle Bodies Not Reportable 04/09/18 06:32 Pelger-Huet Anomaly Not Reportable 04/09/18 06:32 Rosario Rods Not Reportable 04/09/18 06:32 Platelet Estimate Consistent w auto 04/09/18 06:32 Clumped Platelets Not Reportable 04/09/18 06:32 Plt Clumps, EDTA Not Reportable 04/09/18 06:32 Large Platelets Not Reportable 04/09/18 06:32 Giant Platelets Not Reportable 04/09/18 06:32 Platelet Satelliting Not Reportable 04/09/18 06:32 Plt Morphology Comment Not Reportable 04/09/18 06:32 RBC Morphology Not Reportable 04/09/18 06:32 Dimorphic RBCs Not Reportable 04/09/18 06:32 Polychromasia Not Reportable 04/09/18 06:32 Hypochromasia Not Reportable 04/09/18 06:32 Poikilocytosis Few 04/09/18 06:32 Anisocytosis 1+ 04/09/18 06:32 Microcytosis Not Reportable 04/09/18 06:32 Macrocytosis Not Reportable 04/09/18 06:32 Spherocytes Not Reportable 04/09/18 06:32 Pappenheimer Bodies Not Reportable 04/09/18 06:32 Sickle Cells Not Reportable 04/09/18 06:32 Target Cells Not Reportable 04/09/18 06:32 Tear Drop Cells Not Reportable 04/09/18 06:32 Ovalocytes Not Reportable 04/09/18 06:32 Helmet Cells Not Reportable 04/09/18 06:32 [place] Bodies Not Reportable 04/09/18 06:32 [place] Rings Not Reportable 04/09/18 06:32 [place] Cells Not Reportable 04/09/18 06:32 Bite Cells Not Reportable 04/09/18 06:32 Crenated Cell Not Reportable 04/09/18 06:32 Elliptocytes Not Reportable 04/09/18 06:32 Acanthocytes (Spur) Not Reportable 04/09/18 06:32 Rouleaux Not Reportable 04/09/18 06:32 Hemoglobin C Crystals Not Reportable 04/09/18 06:32 Schistocytes Not Reportable 04/09/18 06:32 Malaria parasites Not Reportable 04/09/18 06:32 Tristan Bodies Not Reportable 04/09/18 06:32 Hem Pathologist Commnt No 04/09/18 06:32 PT 13.1 Sec. (12.2-14.9) 04/06/18 20:05 INR 0.94 (0.87-1.13) 04/06/18 20:05 Sodium 129 mmol/L (137-145) L 04/10/18 04:59 Potassium 3.5 mmol/L (3.6-5.0) L 04/10/18 04:59 Chloride 90.3 mmol/L (98-107) L 04/10/18 04:59 Carbon Dioxide 22 mmol/L (22-30) 04/10/18 04:59 Anion Gap 20 mmol/L 04/10/18 04:59 BUN 7 mg/dL (9-20) L 04/10/18 04:59 Creatinine 0.5 mg/dL (0.8-1.5) L 04/10/18 04:59 Estimated GFR > 60 ml/min 04/10/18 04:59 BUN/Creatinine Ratio 14 % 04/10/18 04:59 Glucose 97 mg/dL (75-100) 04/10/18 04:59 Calcium 8.3 mg/dL (8.4-10.2) L 04/10/18 04:59 Magnesium 1.10 mg/dL (1.7-2.3) L 04/09/18 09:48 Total Bilirubin 0.50 mg/dL (0.1-1.2) 04/06/18 20:05 Direct Bilirubin < 0.2 mg/dL (0-0.2) 04/06/18 20:05 Indirect Bilirubin 0.3 mg/dL 04/06/18 20:05 AST 12 units/L (5-40) 04/06/18 20:05 ALT 13 units/L (7-56) 04/06/18 20:05 Alkaline Phosphatase 74 units/L (35-129) 04/06/18 20:05 Troponin T < 0.010 ng/mL (0.00-0.029) 04/06/18 21:38 NT-Pro-B Natriuret Pep 44.32 pg/mL (0-900) 04/06/18 20:05 Total Protein 6.2 g/dL (6.3-8.2) L 04/06/18 20:05 Albumin 3.7 g/dL (3.9-5) L 04/06/18 20:05 Albumin/Globulin Ratio 1.5 % 04/06/18 20:05 Amylase 54 units/L (27-131) 04/06/18 20:05 Lipase 46 units/L (13-60) 04/06/18 20:05 Urine Color Yellow (Yellow) 04/06/18 21:14 Urine Turbidity Slightly-cloudy (Clear) 04/06/18 21:14 Urine pH 6.0 (5.0-7.0) 04/06/18 21:14 Ur Specific [place] 1.016 (1.003-1.030) 04/06/18 21:14 Urine Protein <15 mg/dl mg/dL (Negative) 04/06/18 21:14 Urine Glucose (UA) Neg mg/dL (Negative) 04/06/18 21:14 Urine Ketones Neg mg/dL (Negative) 04/06/18 21:14 Urine Blood Lg (Negative) 04/06/18 21:14 Urine Nitrite Neg (Negative) 04/06/18 21:14 Urine Bilirubin Neg (Negative) 04/06/18 21:14 Urine Urobilinogen < 2.0 mg/dL (<2.0) 04/06/18 21:14 Ur Leukocyte Esterase Neg (Negative) 04/06/18 21:14 Urine WBC (Auto) 4.0 /HPF (0.0-6.0) 04/06/18 21:14 Urine RBC (Auto) 37.0 /HPF (0.0-6.0) 04/06/18 21:14 U Epithel Cells (Auto) < 1.0 /HPF (0-13.0) 04/06/18 21:14 Amorphous Crystals Few 04/06/18 21:14 Urine Mucus Few /HPF 04/06/18 21:14 C. difficile Toxin A&B Negative (Negative) 04/07/18 Unknown
--- NOTE | 2018-04-18 12:21 | Hem/Onc Progress Note ---
Assessment and Plan # h/o CLL as per notes 04/18 - D/w Dr Cole in [facility]/ [place] Telephonic information by Dr Cole - Pt was diagnosed CLL 2014. 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 In 2018 Ibrutinib was given for relapse. He used it for 2 months. He had some psych issues. At this time Pt's WBC not elevated # mild anemia - normal MCV # Mild thormbocytopenia - no bleeding # admitted for watery diarrhea over the last 30 days. Patient was also complaining abdominal bloating, abdominal pain. As he is stable - once D/mitchell - pt will follow Dr Cole in [place] - Patient Problems (1) CLL (chronic lymphocytic leukemia) Onset Date: ~04/17/18 Current Visit: Yes Status: Acute Subjective Date of service: 04/18/18 Principal diagnosis: CLL Interval history: pt says doing better as per RN - Physical therapy evaluation d/w Dr Cole - [place]- pt had CLL in 2014 - got FCR x6 - relpase in 2017 - ibrutinib started but he stopped after a few months. Objective - Constitutional Vitals: Last Vital Signs Temp 98.7 F 04/18/18 05:29 Pulse 73 04/18/18 05:29 Resp 20 04/18/18 05:29 BP 101/61 04/18/18 05:29 Pulse Ox 100 04/18/18 05:29 Pain Intensity (0-10): denies any pain General appearance: no acute distress Performance status: 0-fully active - EENT Eyes: PERRL ENT: clear oral mucosa Lymph node exam: bilateral cervical, bilateral supraclavicular - Neck Neck: supple - Respiratory Respiratory effort: Positive: normal Respiratory: bilateral: CTA - Cardiovascular Heart Sounds: Present: S1 & S2 Extremities: No edema - Gastrointestinal General gastrointestinal: Present: soft, non-tender Rectal Exam: deferred - Integumentary Integumentary: warm - Musculoskeletal Musculoskeletal: strength equal bilaterally - Neurologic Neurologic: moves all extremities - Allied health notes Allied health notes reviewed: nursing
[2018-04-19] MEDS: HEPARIN SUB-Q SCH ×3 (05:51→21:42)
--- NOTE | 2018-04-19 12:20 | Progress Note ---
Assessment and Plan Assessment and plan: 63-year-old male presented to the emergency department complaining of diarrhea of one month duration. Patient is complaining of abdominal pain and nausea. CT abdomen shows colitis/prostatitis, and bladder distention Diarrhea colitis -Treated with IV flagyl and levaquin and resolved - GI consult appreciated Patient the developed constipation - Treated with MiraLAX per GI Hyponatremia -Resolved Distended bladder with mild hydronephrosis, ?neurogenic bladder - Urology consult appreciated. Hypokalemia - Repleted CLL - Per the record from [facility] - Oncology consulted Deconditioning - PT recommended subacute rehabilitation DVT prophylaxis - heparin Disposition -Patient is unfunded and need Rehab placement. APS notified by our nephrology social worker. - patient is stable to be discharged to SNF History Interval history: Patient was seen and evaluated this morning, no diarrhea. Hospitalist Physical - Physical exam Narrative exam: Not in cardiopulmonary distress. The patient appeared well nourished and normally developed. Vital signs as documented. Head exam is unremarkable. No scleral icterus . Neck is without jugular venous distension, thyromegaly, or carotid bruits. Lungs are clear to auscultation. Cardiac exam reveals regular rate and Rhythm. Abdominal exam reveals normal bowel sounds. Extremities are nonedematous and both femoral and pedal pulses are normal. EBAY RESELLER: Alert and oriented 3. No focal weakness. - Constitutional Vitals: Temp Pulse Resp BP Pulse Ox 97.7 F 76 16 113/70 97 04/19/18 05:26 04/19/18 05:26 04/19/18 05:26 04/19/18 05:26 04/19/18 05:26 General appearance: Present: no acute distress Results - Labs CBC & Chem 7: 04/09/18 06:32 04/10/18 04:59 Labs: Laboratory Last Values WBC 5.5 K/mm3 (4.5-11.0) 04/09/18 06:32 RBC 3.23 M/mm3 (3.65-5.03) L 04/09/18 06:32 Hgb 9.6 gm/dl (11.8-15.2) L 04/09/18 06:32 Hct 28.9 % (35.5-45.6) L 04/09/18 06:32 MCV 89 fl (84-94) 04/09/18 06:32 MCH 30 pg (28-32) 04/09/18 06:32 MCHC 33 % (32-34) 04/09/18 06:32 RDW 13.4 % (13.2-15.2) 04/09/18 06:32 Plt Count 124 K/mm3 (140-440) L 04/09/18 06:32 Lymph % (Auto) Learning Center Coordinator 04/09/18 06:32 Lymph # Learning Center Coordinator 04/06/18 20:05 Add Manual Diff Complete 04/09/18 06:32 Total Counted 100 04/09/18 06:32 Seg Neuts % (Manual) 60.0 % (40.0-70.0) 04/09/18 06:32 Band Neutrophils % 0 % 04/09/18 06:32 Lymphocytes % (Manual) 36.0 % (13.4-35.0) H 04/09/18 06:32 Reactive Lymphs % (Man) 0 % 04/09/18 06:32 Monocytes % (Manual) 4.0 % (0.0-7.3) 04/09/18 06:32 Eosinophils % (Manual) 0 % (0.0-4.3) 04/09/18 06:32 Basophils % (Manual) 0 % (0.0-1.8) 04/09/18 06:32 Metamyelocytes % 0 % 04/09/18 06:32 Myelocytes % 0 % 04/09/18 06:32 Promyelocytes % 0 % 04/09/18 06:32 Blast Cells % 0 % 04/09/18 06:32 Nucleated RBC % Not Reportable 04/09/18 06:32 Seg Neutrophils # Man 3.3 K/mm3 (1.8-7.7) 04/09/18 06:32 Band Neutrophils # 0.0 K/mm3 04/09/18 06:32 Lymphocytes # (Manual) 2.0 K/mm3 (1.2-5.4) 04/09/18 06:32 Abs React Lymphs (Man) 0.0 K/mm3 04/09/18 06:32 Monocytes # (Manual) 0.2 K/mm3 (0.0-0.8) 04/09/18 06:32 Eosinophils # (Manual) 0.0 K/mm3 (0.0-0.4) 04/09/18 06:32 Basophils # (Manual) 0.0 K/mm3 (0.0-0.1) 04/09/18 06:32 Metamyelocytes # 0.0 K/mm3 04/09/18 06:32 Myelocytes # 0.0 K/mm3 04/09/18 06:32 Promyelocytes # 0.0 K/mm3 04/09/18 06:32 Blast Cells # 0.0 K/mm3 04/09/18 06:32 WBC Morphology Not Reportable 04/09/18 06:32 Hypersegmented Neuts Not Reportable 04/09/18 06:32 Hyposegmented Neuts Not Reportable 04/09/18 06:32 Hypogranular Neuts Not Reportable 04/09/18 06:32 Smudge Cells Not Reportable 04/09/18 06:32 Toxic Granulation Not Reportable 04/09/18 06:32 Toxic Vacuolation Not Reportable 04/09/18 06:32 Dohle Bodies Not Reportable 04/09/18 06:32 Pelger-Huet Anomaly Not Reportable 04/09/18 06:32 Rosario Rods Not Reportable 04/09/18 06:32 Platelet Estimate Consistent w auto 04/09/18 06:32 Clumped Platelets Not Reportable 04/09/18 06:32 Plt Clumps, EDTA Not Reportable 04/09/18 06:32 Large Platelets Not Reportable 04/09/18 06:32 Giant Platelets Not Reportable 04/09/18 06:32 Platelet Satelliting Not Reportable 04/09/18 06:32 Plt Morphology Comment Not Reportable 04/09/18 06:32 RBC Morphology Not Reportable 04/09/18 06:32 Dimorphic RBCs Not Reportable 04/09/18 06:32 Polychromasia Not Reportable 04/09/18 06:32 Hypochromasia Not Reportable 04/09/18 06:32 Poikilocytosis Few 04/09/18 06:32 Anisocytosis 1+ 04/09/18 06:32 Microcytosis Not Reportable 04/09/18 06:32 Macrocytosis Not Reportable 04/09/18 06:32 Spherocytes Not Reportable 04/09/18 06:32 Pappenheimer Bodies Not Reportable 04/09/18 06:32 Sickle Cells Not Reportable 04/09/18 06:32 Target Cells Not Reportable 04/09/18 06:32 Tear Drop Cells Not Reportable 04/09/18 06:32 Ovalocytes Not Reportable 04/09/18 06:32 Helmet Cells Not Reportable 04/09/18 06:32 [place] Bodies Not Reportable 04/09/18 06:32 [place] Rings Not Reportable 04/09/18 06:32 [place] Cells Not Reportable 04/09/18 06:32 Bite Cells Not Reportable 04/09/18 06:32 Crenated Cell Not Reportable 04/09/18 06:32 Elliptocytes Not Reportable 04/09/18 06:32 Acanthocytes (Spur) Not Reportable 04/09/18 06:32 Rouleaux Not Reportable 04/09/18 06:32 Hemoglobin C Crystals Not Reportable 04/09/18 06:32 Schistocytes Not Reportable 04/09/18 06:32 Malaria parasites Not Reportable 04/09/18 06:32 Tristan Bodies Not Reportable 04/09/18 06:32 Hem Pathologist Commnt No 04/09/18 06:32 PT 13.1 Sec. (12.2-14.9) 04/06/18 20:05 INR 0.94 (0.87-1.13) 04/06/18 20:05 Sodium 129 mmol/L (137-145) L 04/10/18 04:59 Potassium 3.5 mmol/L (3.6-5.0) L 04/10/18 04:59 Chloride 90.3 mmol/L (98-107) L 04/10/18 04:59 Carbon Dioxide 22 mmol/L (22-30) 04/10/18 04:59 Anion Gap 20 mmol/L 04/10/18 04:59 BUN 7 mg/dL (9-20) L 04/10/18 04:59 Creatinine 0.5 mg/dL (0.8-1.5) L 04/10/18 04:59 Estimated GFR > 60 ml/min 04/10/18 04:59 BUN/Creatinine Ratio 14 % 04/10/18 04:59 Glucose 97 mg/dL (75-100) 04/10/18 04:59 Calcium 8.3 mg/dL (8.4-10.2) L 04/10/18 04:59 Magnesium 1.10 mg/dL (1.7-2.3) L 04/09/18 09:48 Total Bilirubin 0.50 mg/dL (0.1-1.2) 04/06/18 20:05 Direct Bilirubin < 0.2 mg/dL (0-0.2) 04/06/18 20:05 Indirect Bilirubin 0.3 mg/dL 04/06/18 20:05 AST 12 units/L (5-40) 04/06/18 20:05 ALT 13 units/L (7-56) 04/06/18 20:05 Alkaline Phosphatase 74 units/L (35-129) 04/06/18 20:05 Troponin T < 0.010 ng/mL (0.00-0.029) 04/06/18 21:38 NT-Pro-B Natriuret Pep 44.32 pg/mL (0-900) 04/06/18 20:05 Total Protein 6.2 g/dL (6.3-8.2) L 04/06/18 20:05 Albumin 3.7 g/dL (3.9-5) L 04/06/18 20:05 Albumin/Globulin Ratio 1.5 % 04/06/18 20:05 Amylase 54 units/L (27-131) 04/06/18 20:05 Lipase 46 units/L (13-60) 04/06/18 20:05 Urine Color Yellow (Yellow) 04/06/18 21:14 Urine Turbidity Slightly-cloudy (Clear) 04/06/18 21:14 Urine pH 6.0 (5.0-7.0) 04/06/18 21:14 Ur Specific [place] 1.016 (1.003-1.030) 04/06/18 21:14 Urine Protein <15 mg/dl mg/dL (Negative) 04/06/18 21:14 Urine Glucose (UA) Neg mg/dL (Negative) 04/06/18 21:14 Urine Ketones Neg mg/dL (Negative) 04/06/18 21:14 Urine Blood Lg (Negative) 04/06/18 21:14 Urine Nitrite Neg (Negative) 04/06/18 21:14 Urine Bilirubin Neg (Negative) 04/06/18 21:14 Urine Urobilinogen < 2.0 mg/dL (<2.0) 04/06/18 21:14 Ur Leukocyte Esterase Neg (Negative) 04/06/18 21:14 Urine WBC (Auto) 4.0 /HPF (0.0-6.0) 04/06/18 21:14 Urine RBC (Auto) 37.0 /HPF (0.0-6.0) 04/06/18 21:14 U Epithel Cells (Auto) < 1.0 /HPF (0-13.0) 04/06/18 21:14 Amorphous Crystals Few 04/06/18 21:14 Urine Mucus Few /HPF 04/06/18 21:14 C. difficile Toxin A&B Negative (Negative) 04/07/18 Unknown
--- NOTE | 2018-04-19 13:06 | Hem/Onc Progress Note ---
Assessment and Plan Generic Name Dose Route Start Last Admin Trade Name Leonidas PRN Reason Stop Dose Admin Acetaminophen 650 mg 04/14/18 14:27 04/16/18 21:09 Tylenol PO 650 mg Q6H PRN Administration Pain, Mild (1-3) Heparin Sodium (Porcine) 5,000 unit 04/07/18 06:00 04/19/18 21:42 Heparin SUB-Q 5,000 unit Q8HR LUCI Administration Ondansetron HCl 4 mg 04/07/18 12:01 Zofran IV Q8H PRN N/V unrelieved by Reglan # h/o CLL as per notes 04/18 - I D/w Dr Cole in [facility]/ [place] Telephonic information by Dr Cole - Pt was diagnosed CLL 2014. 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 In 2018 Ibrutinib was given for relapse. He used it for 2 months. He had some psych issues. At this time Pt's WBC not elevated # mild anemia - normal MCV # Mild thormbocytopenia - no bleeding # admitted for watery diarrhea over the last 30 days. Patient was also complaining abdominal bloating, abdominal pain. As he is stable - once D/mitchell - pt will follow Dr Cole in [place] - Patient Problems (1) CLL (chronic lymphocytic leukemia) Onset Date: ~04/17/18 Current Visit: Yes Status: Acute Subjective Date of service: 04/19/18 Principal diagnosis: CLL Interval history: pt says doing better as per RN - Physical therapy evaluation 04/18 - I d/w Dr Cole [facility]- pt had CLL in 2014 - got FCR x6 - relpase in 2017 - ibrutinib started but he stopped after a few months. Objective - Constitutional Vitals: Last Vital Signs Temp 98.7 F 04/19/18 11:46 Pulse 86 04/19/18 11:46 Resp 18 04/19/18 11:46 BP 102/63 04/19/18 11:46 Pulse Ox 99 04/19/18 11:46
[2018-04-20] MEDS: HEPARIN SUB-Q SCH ×3 (05:47→22:15)
[2018-04-20 06:12] LABS: Hemoglobin 10.5 gm/dl (11.8-15.2); Mean Corpuscular HGB Conc 33 % (32-34); Mean Corpuscular Hemoglobin 30 pg (28-32); Mean Corpuscular Volume 92 fl (84-94); Platelet Count 139 K/mm3 (140-440); Red Blood Count 3.48 M/mm3 (3.65-5.03); Red Cell Distribution Width 14.7 % (13.2-15.2)
[2018-04-20 08:44] LABS: Eosinophils % (Manual) 0 % (0.0-4.3); Total Cells Counted 100
[2018-04-20 08:45] LABS: Anisocytosis 1+; Platelet Estimate Cons
--- NOTE | 2018-04-20 13:45 | Hem/Onc Progress Note ---
Assessment and Plan # h/o CLL as per notes 04/18 - I D/w Dr Cole in [facility]/ [place] Telephonic information by Dr Cole - Pt was diagnosed CLL 2014. 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 In 2018 Ibrutinib was given for relapse. He used it for 2 months. He had some psych issues. At this time Pt's WBC not elevated # mild anemia - normal MCV - CLL vs oher etiology # Mild thormbocytopenia - no bleeding - CLL vs other etiology # admitted for watery diarrhea over the last 30 days. Patient was also complaining abdominal bloating, abdominal pain. As he is stable - once D/mitchell - pt will follow Dr Cole in [place] - Patient Problems (1) CLL (chronic lymphocytic leukemia) Onset Date: ~04/17/18 Current Visit: Yes Status: Acute Subjective Date of service: 04/20/18 Principal diagnosis: CLL Interval history: pt says doing better as per RN - Physical therapy evaluation 04/18 - I d/w Dr Cole - [place]- pt had CLL in 2014 - got FCR x6 - relpase in 2018 - ibrutinib started but he stopped after a few months. pt has h/o Loose BM Objective - Constitutional Vitals: Last Vital Signs Temp 98.5 F 04/20/18 11:15 Pulse 79 04/20/18 11:15 Resp 18 04/20/18 11:15 BP 101/61 04/20/18 11:15 Pulse Ox 100 04/20/18 11:15 Pain Intensity (0-10): denies any pain General appearance: no acute distress Performance status: 0-fully active - EENT Eyes: PERRL ENT: clear oral mucosa Lymph node exam: negative cervical, negative supraclavicular - Neck Neck: supple - Respiratory Respiratory effort: Positive: normal Respiratory: bilateral: CTA - Cardiovascular Heart Sounds: Present: S1 & S2 Extremities: No edema - Gastrointestinal General gastrointestinal: Present: soft, non-tender Rectal Exam: deferred - Genitourinary Male genitourinary: Present: deferred - Integumentary Integumentary: warm - Allied health notes Allied health notes reviewed: nursing - Labs Lab Results: Laboratory Results - last 24 hr 04/20/18 05:34 WBC 7.8 RBC 3.48 L Hgb 10.5 L Hct 32.0 L MCV 92 MCH 30 MCHC 33 RDW 14.7 Plt Count 139 L Lymph % (Auto) Molecular Biology Director Lymph # Molecular Biology Director Add Manual Diff Complete Total Counted 100 Seg Neutrophils % Molecular Biology Director Seg Neuts % (Manual) 39.0 L Band Neutrophils % 0 Lymphocytes % (Manual) 57.0 H Reactive Lymphs % (Man) 0 Monocytes % (Manual) 3.0 Eosinophils % (Manual) 0 Basophils % (Manual) 1.0 Metamyelocytes % 0 Myelocytes % 0 Promyelocytes % 0 Blast Cells % 0 Nucleated RBC % Not Reportable Seg Neutrophils # Man 3.0 Band Neutrophils # 0.0 Lymphocytes # (Manual) 4.4 Abs React Lymphs (Man) 0.0 Monocytes # (Manual) 0.2 Eosinophils # (Manual) 0.0 Basophils # (Manual) 0.1 Metamyelocytes # 0.0 Myelocytes # 0.0 Promyelocytes # 0.0 Blast Cells # 0.0 WBC Morphology Not Reportable Hypersegmented Neuts Not Reportable Hyposegmented Neuts Not Reportable Hypogranular Neuts Not Reportable Smudge Cells Not Reportable Toxic Granulation Not Reportable Toxic Vacuolation Not Reportable Dohle Bodies Not Reportable Pelger-Huet Anomaly Not Reportable Rosario Rods Not Reportable Platelet Estimate Cons Clumped Platelets Not Reportable Plt Clumps, EDTA Not Reportable Large Platelets Not Reportable Giant Platelets Not Reportable Platelet Satelliting Not Reportable Plt Morphology Comment Not Reportable RBC Morphology Not Reportable Dimorphic RBCs Not Reportable Polychromasia Not Reportable Hypochromasia Not Reportable Poikilocytosis Not Reportable Anisocytosis 1+ Microcytosis Not Reportable Macrocytosis Not Reportable Spherocytes Not Reportable Pappenheimer Bodies Not Reportable Sickle Cells Not Reportable Target Cells Not Reportable Tear Drop Cells Not Reportable Ovalocytes Not Reportable Helmet Cells Not Reportable [place] Bodies Not Reportable [place] Rings Not Reportable [place] Cells Not Reportable Bite Cells Not Reportable Crenated Cell Not Reportable Elliptocytes Not Reportable Acanthocytes (Spur) Not Reportable Rouleaux Not Reportable Hemoglobin C Crystals Not Reportable Schistocytes Not Reportable Malaria parasites Not Reportable Tristan Bodies Not Reportable Hem Pathologist Commnt No
[2018-04-20] MEDS: TYLENOL PO PRN (14:03)
--- NOTE | 2018-04-20 15:26 | Progress Note ---
Assessment and Plan Assessment and plan: 63-year-old male presented to the emergency department complaining of diarrhea of one month duration. Patient is complaining of abdominal pain and nausea. CT abdomen shows colitis/prostatitis, and bladder distention Diarrhea colitis -Treated with IV flagyl and levaquin and resolved - GI consult appreciated Patient the developed constipation - Treated with MiraLAX per GI Hyponatremia -Resolved Distended bladder with mild hydronephrosis, ?neurogenic bladder - Urology consult appreciated. Hypokalemia - Repleted CLL - Per the record from [facility] - Oncology consulted Deconditioning - PT recommended subacute rehabilitation DVT prophylaxis - heparin Disposition -Patient is unfunded and need Rehab placement. APS notified by our foster care social worker and came and evaluated the patient and will try to get to his families. - patient is stable to be discharged to SNF History Interval history: Patient was seen and evaluated this morning, no diarrhea. Hospitalist Physical - Physical exam Narrative exam: Not in cardiopulmonary distress. The patient appeared well nourished and normally developed. Vital signs as documented. Head exam is unremarkable. No scleral icterus . Neck is without jugular venous distension, thyromegaly, or carotid bruits. Lungs are clear to auscultation. Cardiac exam reveals regular rate and Rhythm. Abdominal exam reveals normal bowel sounds. Extremities are nonedematous and both femoral and pedal pulses are normal. FABRIC DESIGNER: Alert and oriented 3. No focal weakness. - Constitutional Vitals: Temp Pulse Resp BP Pulse Ox 98.5 F 79 18 101/61 100 04/20/18 11:15 04/20/18 11:15 04/20/18 14:03 04/20/18 11:15 04/20/18 11:15 General appearance: Present: no acute distress Results - Labs CBC & Chem 7: 04/20/18 05:34 04/10/18 04:59 Labs: Laboratory Last Values WBC 7.8 K/mm3 (4.5-11.0) 04/20/18 05:34 RBC 3.48 M/mm3 (3.65-5.03) L 04/20/18 05:34 Hgb 10.5 gm/dl (11.8-15.2) L 04/20/18 05:34 Hct 32.0 % (35.5-45.6) L 04/20/18 05:34 MCV 92 fl (84-94) 04/20/18 05:34 MCH 30 pg (28-32) 04/20/18 05:34 MCHC 33 % (32-34) 04/20/18 05:34 RDW 14.7 % (13.2-15.2) 04/20/18 05:34 Plt Count 139 K/mm3 (140-440) L 04/20/18 05:34 Lymph % (Auto) Bridge Opener 04/20/18 05:34 Lymph # Bridge Opener 04/20/18 05:34 Add Manual Diff Complete 04/20/18 05:34 Total Counted 100 04/20/18 05:34 Seg Neutrophils % Bridge Opener 04/20/18 05:34 Seg Neuts % (Manual) 39.0 % (40.0-70.0) L 04/20/18 05:34 Band Neutrophils % 0 % 04/20/18 05:34 Lymphocytes % (Manual) 57.0 % (13.4-35.0) H 04/20/18 05:34 Reactive Lymphs % (Man) 0 % 04/20/18 05:34 Monocytes % (Manual) 3.0 % (0.0-7.3) 04/20/18 05:34 Eosinophils % (Manual) 0 % (0.0-4.3) 04/20/18 05:34 Basophils % (Manual) 1.0 % (0.0-1.8) 04/20/18 05:34 Metamyelocytes % 0 % 04/20/18 05:34 Myelocytes % 0 % 04/20/18 05:34 Promyelocytes % 0 % 04/20/18 05:34 Blast Cells % 0 % 04/20/18 05:34 Nucleated RBC % Not Reportable 04/20/18 05:34 Seg Neutrophils # Man 3.0 K/mm3 (1.8-7.7) 04/20/18 05:34 Band Neutrophils # 0.0 K/mm3 04/20/18 05:34 Lymphocytes # (Manual) 4.4 K/mm3 (1.2-5.4) 04/20/18 05:34 Abs React Lymphs (Man) 0.0 K/mm3 04/20/18 05:34 Monocytes # (Manual) 0.2 K/mm3 (0.0-0.8) 04/20/18 05:34 Eosinophils # (Manual) 0.0 K/mm3 (0.0-0.4) 04/20/18 05:34 Basophils # (Manual) 0.1 K/mm3 (0.0-0.1) 04/20/18 05:34 Metamyelocytes # 0.0 K/mm3 04/20/18 05:34 Myelocytes # 0.0 K/mm3 04/20/18 05:34 Promyelocytes # 0.0 K/mm3 04/20/18 05:34 Blast Cells # 0.0 K/mm3 04/20/18 05:34 WBC Morphology Not Reportable 04/20/18 05:34 Hypersegmented Neuts Not Reportable 04/20/18 05:34 Hyposegmented Neuts Not Reportable 04/20/18 05:34 Hypogranular Neuts Not Reportable 04/20/18 05:34 Smudge Cells Not Reportable 04/20/18 05:34 Toxic Granulation Not Reportable 04/20/18 05:34 Toxic Vacuolation Not Reportable 04/20/18 05:34 Dohle Bodies Not Reportable 04/20/18 05:34 Pelger-Huet Anomaly Not Reportable 04/20/18 05:34 Rosario Rods Not Reportable 04/20/18 05:34 Platelet Estimate Cons 04/20/18 05:34 Clumped Platelets Not Reportable 04/20/18 05:34 Plt Clumps, EDTA Not Reportable 04/20/18 05:34 Large Platelets Not Reportable 04/20/18 05:34 Giant Platelets Not Reportable 04/20/18 05:34 Platelet Satelliting Not Reportable 04/20/18 05:34 Plt Morphology Comment Not Reportable 04/20/18 05:34 RBC Morphology Not Reportable 04/20/18 05:34 Dimorphic RBCs Not Reportable 04/20/18 05:34 Polychromasia Not Reportable 04/20/18 05:34 Hypochromasia Not Reportable 04/20/18 05:34 Poikilocytosis Not Reportable 04/20/18 05:34 Anisocytosis 1+ 04/20/18 05:34 Microcytosis Not Reportable 04/20/18 05:34 Macrocytosis Not Reportable 04/20/18 05:34 Spherocytes Not Reportable 04/20/18 05:34 Pappenheimer Bodies Not Reportable 04/20/18 05:34 Sickle Cells Not Reportable 04/20/18 05:34 Target Cells Not Reportable 04/20/18 05:34 Tear Drop Cells Not Reportable 04/20/18 05:34 Ovalocytes Not Reportable 04/20/18 05:34 Helmet Cells Not Reportable 04/20/18 05:34 [place] Bodies Not Reportable 04/20/18 05:34 [place] Rings Not Reportable 04/20/18 05:34 [place] Cells Not Reportable 04/20/18 05:34 Bite Cells Not Reportable 04/20/18 05:34 Crenated Cell Not Reportable 04/20/18 05:34 Elliptocytes Not Reportable 04/20/18 05:34 Acanthocytes (Spur) Not Reportable 04/20/18 05:34 Rouleaux Not Reportable 04/20/18 05:34 Hemoglobin C Crystals Not Reportable 04/20/18 05:34 Schistocytes Not Reportable 04/20/18 05:34 Malaria parasites Not Reportable 04/20/18 05:34 Tristan Bodies Not Reportable 04/20/18 05:34 Hem Pathologist Commnt No 04/20/18 05:34 PT 13.1 Sec. (12.2-14.9) 04/06/18 20:05 INR 0.94 (0.87-1.13) 04/06/18 20:05 Sodium 129 mmol/L (137-145) L 04/10/18 04:59 Potassium 3.5 mmol/L (3.6-5.0) L 04/10/18 04:59 Chloride 90.3 mmol/L (98-107) L 04/10/18 04:59 Carbon Dioxide 22 mmol/L (22-30) 04/10/18 04:59 Anion Gap 20 mmol/L 04/10/18 04:59 BUN 7 mg/dL (9-20) L 04/10/18 04:59 Creatinine 0.5 mg/dL (0.8-1.5) L 04/10/18 04:59 Estimated GFR > 60 ml/min 04/10/18 04:59 BUN/Creatinine Ratio 14 % 04/10/18 04:59 Glucose 97 mg/dL (75-100) 04/10/18 04:59 Calcium 8.3 mg/dL (8.4-10.2) L 04/10/18 04:59 Magnesium 1.10 mg/dL (1.7-2.3) L 04/09/18 09:48 Total Bilirubin 0.50 mg/dL (0.1-1.2) 04/06/18 20:05 Direct Bilirubin < 0.2 mg/dL (0-0.2) 04/06/18 20:05 Indirect Bilirubin 0.3 mg/dL 04/06/18 20:05 AST 12 units/L (5-40) 04/06/18 20:05 ALT 13 units/L (7-56) 04/06/18 20:05 Alkaline Phosphatase 74 units/L (35-129) 04/06/18 20:05 Troponin T < 0.010 ng/mL (0.00-0.029) 04/06/18 21:38 NT-Pro-B Natriuret Pep 44.32 pg/mL (0-900) 04/06/18 20:05 Total Protein 6.2 g/dL (6.3-8.2) L 04/06/18 20:05 Albumin 3.7 g/dL (3.9-5) L 04/06/18 20:05 Albumin/Globulin Ratio 1.5 % 04/06/18 20:05 Amylase 54 units/L (27-131) 04/06/18 20:05 Lipase 46 units/L (13-60) 04/06/18 20:05 Urine Color Yellow (Yellow) 04/06/18 21:14 Urine Turbidity Slightly-cloudy (Clear) 04/06/18 21:14 Urine pH 6.0 (5.0-7.0) 04/06/18 21:14 Ur Specific [place] 1.016 (1.003-1.030) 04/06/18 21:14 Urine Protein <15 mg/dl mg/dL (Negative) 04/06/18 21:14 Urine Glucose (UA) Neg mg/dL (Negative) 04/06/18 21:14 Urine Ketones Neg mg/dL (Negative) 04/06/18 21:14 Urine Blood Lg (Negative) 04/06/18 21:14 Urine Nitrite Neg (Negative) 04/06/18 21:14 Urine Bilirubin Neg (Negative) 04/06/18 21:14 Urine Urobilinogen < 2.0 mg/dL (<2.0) 04/06/18 21:14 Ur Leukocyte Esterase Neg (Negative) 04/06/18 21:14 Urine WBC (Auto) 4.0 /HPF (0.0-6.0) 04/06/18 21:14 Urine RBC (Auto) 37.0 /HPF (0.0-6.0) 04/06/18 21:14 U Epithel Cells (Auto) < 1.0 /HPF (0-13.0) 04/06/18 21:14 Amorphous Crystals Few 04/06/18 21:14 Urine Mucus Few /HPF 04/06/18 21:14 C. difficile Toxin A&B Negative (Negative) 04/07/18 Unknown
[2018-04-21] MEDS: HEPARIN SUB-Q SCH ×3 (05:57→21:20)
--- NOTE | 2018-04-21 08:01 | Progress Note ---
Assessment and Plan Assessment and plan: 63-year-old male presented to the emergency department complaining of diarrhea of one month duration. Patient is complaining of abdominal pain and nausea. CT abdomen shows colitis/prostatitis, and bladder distention Diarrhea colitis -Treated with IV flagyl and levaquin and resolved - GI consult appreciated Patient the developed constipation - Treated with MiraLAX per GI Hyponatremia -Resolved Distended bladder with mild hydronephrosis, ?neurogenic bladder - Urology consult appreciated. Hypokalemia - Repleted CLL - Per the record from [facility] - Oncology consulted Deconditioning - PT recommended subacute rehabilitation DVT prophylaxis - heparin Disposition -Patient is unfunded and need Rehab placement. APS notified by our group social worker and came and evaluated the patient and will try to get to his families. - patient is stable to be discharged to SNF History Interval history: Patient was seen and evaluated this morning, no diarrhea. Hospitalist Physical - Physical exam Narrative exam: Not in cardiopulmonary distress. The patient appeared well nourished and normally developed. Vital signs as documented. Head exam is unremarkable. No scleral icterus . Neck is without jugular venous distension, thyromegaly, or carotid bruits. Lungs are clear to auscultation. Cardiac exam reveals regular rate and Rhythm. Abdominal exam reveals normal bowel sounds. Extremities are nonedematous and both femoral and pedal pulses are normal. TRANSIT DEPARTMENT CLERK: Alert and oriented 3. No focal weakness. - Constitutional Vitals: Temp Pulse Resp BP Pulse Ox 97.0 F L 71 16 101/57 98 04/21/18 05:29 04/21/18 05:29 04/21/18 05:29 04/21/18 05:29 04/21/18 05:29 General appearance: Present: no acute distress Results - Labs CBC & Chem 7: 04/20/18 05:34 04/10/18 04:59 Labs: Laboratory Last Values WBC 7.8 K/mm3 (4.5-11.0) 04/20/18 05:34 RBC 3.48 M/mm3 (3.65-5.03) L 04/20/18 05:34 Hgb 10.5 gm/dl (11.8-15.2) L 04/20/18 05:34 Hct 32.0 % (35.5-45.6) L 04/20/18 05:34 MCV 92 fl (84-94) 04/20/18 05:34 MCH 30 pg (28-32) 04/20/18 05:34 MCHC 33 % (32-34) 04/20/18 05:34 RDW 14.7 % (13.2-15.2) 04/20/18 05:34 Plt Count 139 K/mm3 (140-440) L 04/20/18 05:34 Lymph % (Auto) [employer] Sales Representative 04/20/18 05:34 Lymph # [employer] Sales Representative 04/20/18 05:34 Add Manual Diff Complete 04/20/18 05:34 Total Counted 100 04/20/18 05:34 Seg Neutrophils % [employer] Sales Representative 04/20/18 05:34 Seg Neuts % (Manual) 39.0 % (40.0-70.0) L 04/20/18 05:34 Band Neutrophils % 0 % 04/20/18 05:34 Lymphocytes % (Manual) 57.0 % (13.4-35.0) H 04/20/18 05:34 Reactive Lymphs % (Man) 0 % 04/20/18 05:34 Monocytes % (Manual) 3.0 % (0.0-7.3) 04/20/18 05:34 Eosinophils % (Manual) 0 % (0.0-4.3) 04/20/18 05:34 Basophils % (Manual) 1.0 % (0.0-1.8) 04/20/18 05:34 Metamyelocytes % 0 % 04/20/18 05:34 Myelocytes % 0 % 04/20/18 05:34 Promyelocytes % 0 % 04/20/18 05:34 Blast Cells % 0 % 04/20/18 05:34 Nucleated RBC % Not Reportable 04/20/18 05:34 Seg Neutrophils # Man 3.0 K/mm3 (1.8-7.7) 04/20/18 05:34 Band Neutrophils # 0.0 K/mm3 04/20/18 05:34 Lymphocytes # (Manual) 4.4 K/mm3 (1.2-5.4) 04/20/18 05:34 Abs React Lymphs (Man) 0.0 K/mm3 04/20/18 05:34 Monocytes # (Manual) 0.2 K/mm3 (0.0-0.8) 04/20/18 05:34 Eosinophils # (Manual) 0.0 K/mm3 (0.0-0.4) 04/20/18 05:34 Basophils # (Manual) 0.1 K/mm3 (0.0-0.1) 04/20/18 05:34 Metamyelocytes # 0.0 K/mm3 04/20/18 05:34 Myelocytes # 0.0 K/mm3 04/20/18 05:34 Promyelocytes # 0.0 K/mm3 04/20/18 05:34 Blast Cells # 0.0 K/mm3 04/20/18 05:34 WBC Morphology Not Reportable 04/20/18 05:34 Hypersegmented Neuts Not Reportable 04/20/18 05:34 Hyposegmented Neuts Not Reportable 04/20/18 05:34 Hypogranular Neuts Not Reportable 04/20/18 05:34 Smudge Cells Not Reportable 04/20/18 05:34 Toxic Granulation Not Reportable 04/20/18 05:34 Toxic Vacuolation Not Reportable 04/20/18 05:34 Dohle Bodies Not Reportable 04/20/18 05:34 Pelger-Huet Anomaly Not Reportable 04/20/18 05:34 Rosario Rods Not Reportable 04/20/18 05:34 Platelet Estimate Cons 04/20/18 05:34 Clumped Platelets Not Reportable 04/20/18 05:34 Plt Clumps, EDTA Not Reportable 04/20/18 05:34 Large Platelets Not Reportable 04/20/18 05:34 Giant Platelets Not Reportable 04/20/18 05:34 Platelet Satelliting Not Reportable 04/20/18 05:34 Plt Morphology Comment Not Reportable 04/20/18 05:34 RBC Morphology Not Reportable 04/20/18 05:34 Dimorphic RBCs Not Reportable 04/20/18 05:34 Polychromasia Not Reportable 04/20/18 05:34 Hypochromasia Not Reportable 04/20/18 05:34 Poikilocytosis Not Reportable 04/20/18 05:34 Anisocytosis 1+ 04/20/18 05:34 Microcytosis Not Reportable 04/20/18 05:34 Macrocytosis Not Reportable 04/20/18 05:34 Spherocytes Not Reportable 04/20/18 05:34 Pappenheimer Bodies Not Reportable 04/20/18 05:34 Sickle Cells Not Reportable 04/20/18 05:34 Target Cells Not Reportable 04/20/18 05:34 Tear Drop Cells Not Reportable 04/20/18 05:34 Ovalocytes Not Reportable 04/20/18 05:34 Helmet Cells Not Reportable 04/20/18 05:34 [place] Bodies Not Reportable 04/20/18 05:34 [place] Rings Not Reportable 04/20/18 05:34 [place] Cells Not Reportable 04/20/18 05:34 Bite Cells Not Reportable 04/20/18 05:34 Crenated Cell Not Reportable 04/20/18 05:34 Elliptocytes Not Reportable 04/20/18 05:34 Acanthocytes (Spur) Not Reportable 04/20/18 05:34 Rouleaux Not Reportable 04/20/18 05:34 Hemoglobin C Crystals Not Reportable 04/20/18 05:34 Schistocytes Not Reportable 04/20/18 05:34 Malaria parasites Not Reportable 04/20/18 05:34 Tristan Bodies Not Reportable 04/20/18 05:34 Hem Pathologist Commnt No 04/20/18 05:34 PT 13.1 Sec. (12.2-14.9) 04/06/18 20:05 INR 0.94 (0.87-1.13) 04/06/18 20:05 Sodium 129 mmol/L (137-145) L 04/10/18 04:59 Potassium 3.5 mmol/L (3.6-5.0) L 04/10/18 04:59 Chloride 90.3 mmol/L (98-107) L 04/10/18 04:59 Carbon Dioxide 22 mmol/L (22-30) 04/10/18 04:59 Anion Gap 20 mmol/L 04/10/18 04:59 BUN 7 mg/dL (9-20) L 04/10/18 04:59 Creatinine 0.5 mg/dL (0.8-1.5) L 04/10/18 04:59 Estimated GFR > 60 ml/min 04/10/18 04:59 BUN/Creatinine Ratio 14 % 04/10/18 04:59 Glucose 97 mg/dL (75-100) 04/10/18 04:59 Calcium 8.3 mg/dL (8.4-10.2) L 04/10/18 04:59 Magnesium 1.10 mg/dL (1.7-2.3) L 04/09/18 09:48 Total Bilirubin 0.50 mg/dL (0.1-1.2) 04/06/18 20:05 Direct Bilirubin < 0.2 mg/dL (0-0.2) 04/06/18 20:05 Indirect Bilirubin 0.3 mg/dL 04/06/18 20:05 AST 12 units/L (5-40) 04/06/18 20:05 ALT 13 units/L (7-56) 04/06/18 20:05 Alkaline Phosphatase 74 units/L (35-129) 04/06/18 20:05 Troponin T < 0.010 ng/mL (0.00-0.029) 04/06/18 21:38 NT-Pro-B Natriuret Pep 44.32 pg/mL (0-900) 04/06/18 20:05 Total Protein 6.2 g/dL (6.3-8.2) L 04/06/18 20:05 Albumin 3.7 g/dL (3.9-5) L 04/06/18 20:05 Albumin/Globulin Ratio 1.5 % 04/06/18 20:05 Amylase 54 units/L (27-131) 04/06/18 20:05 Lipase 46 units/L (13-60) 04/06/18 20:05 Urine Color Yellow (Yellow) 04/06/18 21:14 Urine Turbidity Slightly-cloudy (Clear) 04/06/18 21:14 Urine pH 6.0 (5.0-7.0) 04/06/18 21:14 Ur Specific [place] 1.016 (1.003-1.030) 04/06/18 21:14 Urine Protein <15 mg/dl mg/dL (Negative) 04/06/18 21:14 Urine Glucose (UA) Neg mg/dL (Negative) 04/06/18 21:14 Urine Ketones Neg mg/dL (Negative) 04/06/18 21:14 Urine Blood Lg (Negative) 04/06/18 21:14 Urine Nitrite Neg (Negative) 04/06/18 21:14 Urine Bilirubin Neg (Negative) 04/06/18 21:14 Urine Urobilinogen < 2.0 mg/dL (<2.0) 04/06/18 21:14 Ur Leukocyte Esterase Neg (Negative) 04/06/18 21:14 Urine WBC (Auto) 4.0 /HPF (0.0-6.0) 04/06/18 21:14 Urine RBC (Auto) 37.0 /HPF (0.0-6.0) 04/06/18 21:14 U Epithel Cells (Auto) < 1.0 /HPF (0-13.0) 04/06/18 21:14 Amorphous Crystals Few 04/06/18 21:14 Urine Mucus Few /HPF 04/06/18 21:14 C. difficile Toxin A&B Negative (Negative) 04/07/18 Unknown
[2018-04-21] MEDS: TYLENOL PO PRN ×2 (14:48→21:19)
[2018-04-21] MEDS ORDERED: MIRALAX 3350 PO ONE ×2 (16:00→19:30)
--- NOTE | 2018-04-21 18:52 | Hem/Onc Progress Note ---
Assessment and Plan # h/o CLL as per notes 04/18 - I D/w Dr Cole in [facility]/ [place] Telephonic information by Dr Cole - Pt was diagnosed CLL 2014. 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 In 2018 Ibrutinib was given for relapse. He used it for 2 months. He had some psych issues. At this time Pt's WBC not elevated # mild anemia - normal MCV - CLL vs oher etiology # Mild thormbocytopenia - no bleeding - CLL vs other etiology # was admitted for watery diarrhea for a few weeks. Patient was also complaining abdominal bloating, abdominal pain. Once D/mitchell - pt will follow Dr Cole in [place] as per notes placement being looked into - Patient Problems (1) CLL (chronic lymphocytic leukemia) Onset Date: ~04/17/18 Current Visit: Yes Status: Acute Subjective Date of service: 04/21/18 Principal diagnosis: h/o CLL Interval history: pt says doing better 04/18 - I d/w Dr Cole [facility]- pt had CLL in 2014 - got FCR x6 - relpase in 2018 - ibrutinib started but he stopped after a few months. c/o No BM for a few days Objective - Constitutional Vitals: Last Vital Signs Temp 97.0 F L 04/21/18 05:29 Pulse 71 04/21/18 05:29 Resp 16 04/21/18 05:29 BP 101/57 04/21/18 05:29 Pulse Ox 98 04/21/18 05:29 Pain Intensity (0-10): denies any pain General appearance: no acute distress Performance status: 3-limited selfcare - EENT Eyes: PERRL ENT: clear oral mucosa Lymph node exam: negative cervical, negative supraclavicular - Neck Neck: supple - Respiratory Respiratory effort: Positive: normal Respiratory: bilateral: CTA (anteriorly) - Cardiovascular Heart Sounds: Present: S1 & S2 Extremities: No edema - Gastrointestinal General gastrointestinal: Present: soft, non-tender Rectal Exam: deferred - Genitourinary Male genitourinary: Present: deferred - Integumentary Integumentary: warm - Musculoskeletal Musculoskeletal: strength equal bilaterally - Neurologic Neurologic: moves all extremities
[2018-04-22] MEDS: HEPARIN SUB-Q SCH ×3 (05:26→21:35)
[2018-04-22] MEDS: MIRALAX 3350 PO SCH ×2 (10:08→21:35)
--- NOTE | 2018-04-22 14:06 | Progress Note ---
Assessment and Plan Assessment and plan: 63-year-old male presented to the emergency department complaining of diarrhea of one month duration. Patient is complaining of abdominal pain and nausea. CT abdomen shows colitis/prostatitis, and bladder distention Diarrhea colitis -Treated with IV flagyl and levaquin and resolved - GI consult appreciated Patient the developed constipation - Treated with MiraLAX per GI Hyponatremia -Resolved Distended bladder with mild hydronephrosis, ?neurogenic bladder - Urology consult appreciated. Hypokalemia - Repleted CLL - Per the record from [facility] - Oncology consulted Deconditioning - PT recommended subacute rehabilitation DVT prophylaxis - heparin Disposition -Patient is unfunded and need Rehab placement. APS notified by our case management social worker and came and evaluated the patient and will try to get to his families. - patient is stable to be discharged to SNF History Interval history: Patient was seen and evaluated this morning, no diarrhea. Hospitalist Physical - Physical exam Narrative exam: Not in cardiopulmonary distress. The patient appeared well nourished and normally developed. Vital signs as documented. Head exam is unremarkable. No scleral icterus . Neck is without jugular venous distension, thyromegaly, or carotid bruits. Lungs are clear to auscultation. Cardiac exam reveals regular rate and Rhythm. Abdominal exam reveals normal bowel sounds. Extremities are nonedematous and both femoral and pedal pulses are normal. 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 No focal weakness. - Constitutional Vitals: Temp Pulse Resp BP Pulse Ox 97.8 F 68 16 87/58 100 04/22/18 05:36 04/22/18 05:36 04/22/18 05:36 04/22/18 05:36 04/22/18 05:36 General appearance: Present: no acute distress Results - Labs CBC & Chem 7: 04/20/18 05:34 04/10/18 04:59 Labs: Laboratory Last Values WBC 7.8 K/mm3 (4.5-11.0) 04/20/18 05:34 RBC 3.48 M/mm3 (3.65-5.03) L 04/20/18 05:34 Hgb 10.5 gm/dl (11.8-15.2) L 04/20/18 05:34 Hct 32.0 % (35.5-45.6) L 04/20/18 05:34 MCV 92 fl (84-94) 04/20/18 05:34 MCH 30 pg (28-32) 04/20/18 05:34 MCHC 33 % (32-34) 04/20/18 05:34 RDW 14.7 % (13.2-15.2) 04/20/18 05:34 Plt Count 139 K/mm3 (140-440) L 04/20/18 05:34 Lymph % (Auto) Food Stand Manager 04/20/18 05:34 Lymph # Food Stand Manager 04/20/18 05:34 Add Manual Diff Complete 04/20/18 05:34 Total Counted 100 04/20/18 05:34 Seg Neutrophils % Food Stand Manager 04/20/18 05:34 Seg Neuts % (Manual) 39.0 % (40.0-70.0) L 04/20/18 05:34 Band Neutrophils % 0 % 04/20/18 05:34 Lymphocytes % (Manual) 57.0 % (13.4-35.0) H 04/20/18 05:34 Reactive Lymphs % (Man) 0 % 04/20/18 05:34 Monocytes % (Manual) 3.0 % (0.0-7.3) 04/20/18 05:34 Eosinophils % (Manual) 0 % (0.0-4.3) 04/20/18 05:34 Basophils % (Manual) 1.0 % (0.0-1.8) 04/20/18 05:34 Metamyelocytes % 0 % 04/20/18 05:34 Myelocytes % 0 % 04/20/18 05:34 Promyelocytes % 0 % 04/20/18 05:34 Blast Cells % 0 % 04/20/18 05:34 Nucleated RBC % Not Reportable 04/20/18 05:34 Seg Neutrophils # Man 3.0 K/mm3 (1.8-7.7) 04/20/18 05:34 Band Neutrophils # 0.0 K/mm3 04/20/18 05:34 Lymphocytes # (Manual) 4.4 K/mm3 (1.2-5.4) 04/20/18 05:34 Abs React Lymphs (Man) 0.0 K/mm3 04/20/18 05:34 Monocytes # (Manual) 0.2 K/mm3 (0.0-0.8) 04/20/18 05:34 Eosinophils # (Manual) 0.0 K/mm3 (0.0-0.4) 04/20/18 05:34 Basophils # (Manual) 0.1 K/mm3 (0.0-0.1) 04/20/18 05:34 Metamyelocytes # 0.0 K/mm3 04/20/18 05:34 Myelocytes # 0.0 K/mm3 04/20/18 05:34 Promyelocytes # 0.0 K/mm3 04/20/18 05:34 Blast Cells # 0.0 K/mm3 04/20/18 05:34 WBC Morphology Not Reportable 04/20/18 05:34 Hypersegmented Neuts Not Reportable 04/20/18 05:34 Hyposegmented Neuts Not Reportable 04/20/18 05:34 Hypogranular Neuts Not Reportable 04/20/18 05:34 Smudge Cells Not Reportable 04/20/18 05:34 Toxic Granulation Not Reportable 04/20/18 05:34 Toxic Vacuolation Not Reportable 04/20/18 05:34 Dohle Bodies Not Reportable 04/20/18 05:34 Pelger-Huet Anomaly Not Reportable 04/20/18 05:34 Rosario Rods Not Reportable 04/20/18 05:34 Platelet Estimate Cons 04/20/18 05:34 Clumped Platelets Not Reportable 04/20/18 05:34 Plt Clumps, EDTA Not Reportable 04/20/18 05:34 Large Platelets Not Reportable 04/20/18 05:34 Giant Platelets Not Reportable 04/20/18 05:34 Platelet Satelliting Not Reportable 04/20/18 05:34 Plt Morphology Comment Not Reportable 04/20/18 05:34 RBC Morphology Not Reportable 04/20/18 05:34 Dimorphic RBCs Not Reportable 04/20/18 05:34 Polychromasia Not Reportable 04/20/18 05:34 Hypochromasia Not Reportable 04/20/18 05:34 Poikilocytosis Not Reportable 04/20/18 05:34 Anisocytosis 1+ 04/20/18 05:34 Microcytosis Not Reportable 04/20/18 05:34 Macrocytosis Not Reportable 04/20/18 05:34 Spherocytes Not Reportable 04/20/18 05:34 Pappenheimer Bodies Not Reportable 04/20/18 05:34 Sickle Cells Not Reportable 04/20/18 05:34 Target Cells Not Reportable 04/20/18 05:34 Tear Drop Cells Not Reportable 04/20/18 05:34 Ovalocytes Not Reportable 04/20/18 05:34 Helmet Cells Not Reportable 04/20/18 05:34 [place] Bodies Not Reportable 04/20/18 05:34 [place] Rings Not Reportable 04/20/18 05:34 Sahil Cells Not Reportable 04/20/18 05:34 Bite Cells Not Reportable 04/20/18 05:34 Crenated Cell Not Reportable 04/20/18 05:34 Elliptocytes Not Reportable 04/20/18 05:34 Acanthocytes (Spur) Not Reportable 04/20/18 05:34 Rouleaux Not Reportable 04/20/18 05:34 Hemoglobin C Crystals Not Reportable 04/20/18 05:34 Schistocytes Not Reportable 04/20/18 05:34 Malaria parasites Not Reportable 04/20/18 05:34 Tristan Bodies Not Reportable 04/20/18 05:34 Hem Pathologist Commnt No 04/20/18 05:34 PT 13.1 Sec. (12.2-14.9) 04/06/18 20:05 INR 0.94 (0.87-1.13) 04/06/18 20:05 Sodium 129 mmol/L (137-145) L 04/10/18 04:59 Potassium 3.5 mmol/L (3.6-5.0) L 04/10/18 04:59 Chloride 90.3 mmol/L (98-107) L 04/10/18 04:59 Carbon Dioxide 22 mmol/L (22-30) 04/10/18 04:59 Anion Gap 20 mmol/L 04/10/18 04:59 BUN 7 mg/dL (9-20) L 04/10/18 04:59 Creatinine 0.5 mg/dL (0.8-1.5) L 04/10/18 04:59 Estimated GFR > 60 ml/min 04/10/18 04:59 BUN/Creatinine Ratio 14 % 04/10/18 04:59 Glucose 97 mg/dL (75-100) 04/10/18 04:59 Calcium 8.3 mg/dL (8.4-10.2) L 04/10/18 04:59 Magnesium 1.10 mg/dL (1.7-2.3) L 04/09/18 09:48 Total Bilirubin 0.50 mg/dL (0.1-1.2) 04/06/18 20:05 Direct Bilirubin < 0.2 mg/dL (0-0.2) 04/06/18 20:05 Indirect Bilirubin 0.3 mg/dL 04/06/18 20:05 AST 12 units/L (5-40) 04/06/18 20:05 ALT 13 units/L (7-56) 04/06/18 20:05 Alkaline Phosphatase 74 units/L (35-129) 04/06/18 20:05 Troponin T < 0.010 ng/mL (0.00-0.029) 04/06/18 21:38 NT-Pro-B Natriuret Pep 44.32 pg/mL (0-900) 04/06/18 20:05 Total Protein 6.2 g/dL (6.3-8.2) L 04/06/18 20:05 Albumin 3.7 g/dL (3.9-5) L 04/06/18 20:05 Albumin/Globulin Ratio 1.5 % 04/06/18 20:05 Amylase 54 units/L (27-131) 04/06/18 20:05 Lipase 46 units/L (13-60) 04/06/18 20:05 Urine Color Yellow (Yellow) 04/06/18 21:14 Urine Turbidity Slightly-cloudy (Clear) 04/06/18 21:14 Urine pH 6.0 (5.0-7.0) 04/06/18 21:14 Ur Specific [place] 1.016 (1.003-1.030) 04/06/18 21:14 Urine Protein <15 mg/dl mg/dL (Negative) 04/06/18 21:14 Urine Glucose (UA) Neg mg/dL (Negative) 04/06/18 21:14 Urine Ketones Neg mg/dL (Negative) 04/06/18 21:14 Urine Blood Lg (Negative) 04/06/18 21:14 Urine Nitrite Neg (Negative) 04/06/18 21:14 Urine Bilirubin Neg (Negative) 04/06/18 21:14 Urine Urobilinogen < 2.0 mg/dL (<2.0) 04/06/18 21:14 Ur Leukocyte Esterase Neg (Negative) 04/06/18 21:14 Urine WBC (Auto) 4.0 /HPF (0.0-6.0) 04/06/18 21:14 Urine RBC (Auto) 37.0 /HPF (0.0-6.0) 04/06/18 21:14 U Epithel Cells (Auto) < 1.0 /HPF (0-13.0) 04/06/18 21:14 Amorphous Crystals Few 04/06/18 21:14 Urine Mucus Few /HPF 04/06/18 21:14 C. difficile Toxin A&B Negative (Negative) 04/07/18 Unknown
[2018-04-23] MEDS: HEPARIN SUB-Q SCH ×3 (05:31→21:22)
--- NOTE | 2018-04-23 08:13 | Hem/Onc Progress Note ---
Assessment and Plan # h/o CLL as per notes 04/18 - I D/w Dr Cole in [facility]/ [place] Telephonic information by Dr Cole - Pt was diagnosed CLL 2014. 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 In 2018 Ibrutinib was given for relapse. He used it for 2 months. He had some psych issues. At this time Pt's WBC not elevated # mild anemia - normal MCV - CLL vs oher etiology # Mild thormbocytopenia - no bleeding - CLL vs other etiology # was admitted for watery diarrhea for a few weeks. Patient was also complaining abdominal bloating, abdominal pain. Once D/mitchell - pt will follow Dr Cole in [place] as per notes placement being looked into - Patient Problems (1) CLL (chronic lymphocytic leukemia) Onset Date: ~04/17/18 Current Visit: Yes Status: Acute Subjective Date of service: 04/23/18 Principal diagnosis: h/o CLL Interval history: pt says doing better 04/18 - I d/w Dr Cole [facility]- pt had CLL in 2014 - got FCR x6 - relpase in 2018 - ibrutinib started but he stopped after a few months. had a BM evaluation for placement - ongoing Objective - Constitutional Vitals: Last Vital Signs Temp 98.2 F 04/23/18 05:29 Pulse 79 04/23/18 05:29 Resp 20 04/23/18 05:29 BP 116/70 04/23/18 05:29 Pulse Ox 98 04/23/18 05:29 Pain Intensity (0-10): denies any pain General appearance: no acute distress Performance status: 3-limited selfcare - EENT Eyes: PERRL ENT: clear oral mucosa Lymph node exam: negative cervical, negative supraclavicular - Neck Neck: supple - Respiratory Respiratory effort: Positive: normal Respiratory: negative: CTA - Cardiovascular Heart Sounds: Present: S1 & S2 Extremities: No edema - Gastrointestinal General gastrointestinal: Present: soft, non-tender Rectal Exam: deferred - Genitourinary Male genitourinary: Present: deferred - Integumentary Integumentary: warm - Musculoskeletal Musculoskeletal: strength equal bilaterally - Neurologic Neurologic: moves all extremities (legs weak - b/l)
[2018-04-23] MEDS: MIRALAX 3350 PO SCH ×2 (10:57→21:22)
--- NOTE | 2018-04-23 14:18 | Progress Note ---
Assessment and Plan Assessment and plan: 63-year-old male presented to the emergency department complaining of diarrhea of one month duration. Patient is complaining of abdominal pain and nausea. CT abdomen shows colitis/prostatitis, and bladder distention Diarrhea colitis -Treated with IV flagyl and levaquin and resolved - GI consult appreciated Patient was treated with miralax for constipation. Hyponatremia -Resolved Distended bladder with mild hydronephrosis, ?neurogenic bladder - Urology consult appreciated. Hypokalemia - Repleted CLL - Per the record from [facility] - Oncology consult appreciated Deconditioning - PT recommended subacute rehabilitation DVT prophylaxis - heparin Disposition -Patient is unfunded and need Rehab placement. APS notified by our manager social and came and evaluated the patient and will try to get to his families. - patient is medically stable to be discharged to SNF/Personal home care. History Interval history: Patient was seen and evaluated this morning, no diarrhea. Didn't have any complaints. Hospitalist Physical - Physical exam Narrative exam: Not in cardiopulmonary distress. The patient appeared well nourished and normally developed. Vital signs as documented. Head exam is unremarkable. No scleral icterus . Neck is without jugular venous distension, thyromegaly, or carotid bruits. Lungs are clear to auscultation. Cardiac exam reveals regular rate and Rhythm. Abdominal exam reveals normal bowel sounds. Extremities are nonedematous and both femoral and pedal pulses are normal. HAND STAPLER: Alert and oriented 3. No focal weakness. - Constitutional Vitals: Temp Pulse Resp BP Pulse Ox 98.5 F 79 20 100/64 98 04/23/18 11:35 04/23/18 05:29 04/23/18 11:35 04/23/18 11:35 04/23/18 05:29 General appearance: Present: no acute distress Results - Labs CBC & Chem 7: 04/20/18 05:34 04/10/18 04:59 Labs: Laboratory Last Values WBC 7.8 K/mm3 (4.5-11.0) 04/20/18 05:34 RBC 3.48 M/mm3 (3.65-5.03) L 04/20/18 05:34 Hgb 10.5 gm/dl (11.8-15.2) L 04/20/18 05:34 Hct 32.0 % (35.5-45.6) L 04/20/18 05:34 MCV 92 fl (84-94) 04/20/18 05:34 MCH 30 pg (28-32) 04/20/18 05:34 MCHC 33 % (32-34) 04/20/18 05:34 RDW 14.7 % (13.2-15.2) 04/20/18 05:34 Plt Count 139 K/mm3 (140-440) L 04/20/18 05:34 Lymph % (Auto) Inspector Boiler 04/20/18 05:34 Lymph # Inspector Boiler 04/20/18 05:34 Add Manual Diff Complete 04/20/18 05:34 Total Counted 100 04/20/18 05:34 Seg Neutrophils % Inspector Boiler 04/20/18 05:34 Seg Neuts % (Manual) 39.0 % (40.0-70.0) L 04/20/18 05:34 Band Neutrophils % 0 % 04/20/18 05:34 Lymphocytes % (Manual) 57.0 % (13.4-35.0) H 04/20/18 05:34 Reactive Lymphs % (Man) 0 % 04/20/18 05:34 Monocytes % (Manual) 3.0 % (0.0-7.3) 04/20/18 05:34 Eosinophils % (Manual) 0 % (0.0-4.3) 04/20/18 05:34 Basophils % (Manual) 1.0 % (0.0-1.8) 04/20/18 05:34 Metamyelocytes % 0 % 04/20/18 05:34 Myelocytes % 0 % 04/20/18 05:34 Promyelocytes % 0 % 04/20/18 05:34 Blast Cells % 0 % 04/20/18 05:34 Nucleated RBC % Not Reportable 04/20/18 05:34 Seg Neutrophils # Man 3.0 K/mm3 (1.8-7.7) 04/20/18 05:34 Band Neutrophils # 0.0 K/mm3 04/20/18 05:34 Lymphocytes # (Manual) 4.4 K/mm3 (1.2-5.4) 04/20/18 05:34 Abs React Lymphs (Man) 0.0 K/mm3 04/20/18 05:34 Monocytes # (Manual) 0.2 K/mm3 (0.0-0.8) 04/20/18 05:34 Eosinophils # (Manual) 0.0 K/mm3 (0.0-0.4) 04/20/18 05:34 Basophils # (Manual) 0.1 K/mm3 (0.0-0.1) 04/20/18 05:34 Metamyelocytes # 0.0 K/mm3 04/20/18 05:34 Myelocytes # 0.0 K/mm3 04/20/18 05:34 Promyelocytes # 0.0 K/mm3 04/20/18 05:34 Blast Cells # 0.0 K/mm3 04/20/18 05:34 WBC Morphology Not Reportable 04/20/18 05:34 Hypersegmented Neuts Not Reportable 04/20/18 05:34 Hyposegmented Neuts Not Reportable 04/20/18 05:34 Hypogranular Neuts Not Reportable 04/20/18 05:34 Smudge Cells Not Reportable 04/20/18 05:34 Toxic Granulation Not Reportable 04/20/18 05:34 Toxic Vacuolation Not Reportable 04/20/18 05:34 Dohle Bodies Not Reportable 04/20/18 05:34 Pelger-Huet Anomaly Not Reportable 04/20/18 05:34 Rosario Rods Not Reportable 04/20/18 05:34 Platelet Estimate Cons 04/20/18 05:34 Clumped Platelets Not Reportable 04/20/18 05:34 Plt Clumps, EDTA Not Reportable 04/20/18 05:34 Large Platelets Not Reportable 04/20/18 05:34 Giant Platelets Not Reportable 04/20/18 05:34 Platelet Satelliting Not Reportable 04/20/18 05:34 Plt Morphology Comment Not Reportable 04/20/18 05:34 RBC Morphology Not Reportable 04/20/18 05:34 Dimorphic RBCs Not Reportable 04/20/18 05:34 Polychromasia Not Reportable 04/20/18 05:34 Hypochromasia Not Reportable 04/20/18 05:34 Poikilocytosis Not Reportable 04/20/18 05:34 Anisocytosis 1+ 04/20/18 05:34 Microcytosis Not Reportable 04/20/18 05:34 Macrocytosis Not Reportable 04/20/18 05:34 Spherocytes Not Reportable 04/20/18 05:34 Pappenheimer Bodies Not Reportable 04/20/18 05:34 Sickle Cells Not Reportable 04/20/18 05:34 Target Cells Not Reportable 04/20/18 05:34 Tear Drop Cells Not Reportable 04/20/18 05:34 Ovalocytes Not Reportable 04/20/18 05:34 Helmet Cells Not Reportable 04/20/18 05:34 [place] Bodies Not Reportable 04/20/18 05:34 [place] Rings Not Reportable 04/20/18 05:34 [place] Cells Not Reportable 04/20/18 05:34 Bite Cells Not Reportable 04/20/18 05:34 Crenated Cell Not Reportable 04/20/18 05:34 Elliptocytes Not Reportable 04/20/18 05:34 Acanthocytes (Spur) Not Reportable 04/20/18 05:34 Rouleaux Not Reportable 04/20/18 05:34 Hemoglobin C Crystals Not Reportable 04/20/18 05:34 Schistocytes Not Reportable 04/20/18 05:34 Malaria parasites Not Reportable 04/20/18 05:34 Tristan Bodies Not Reportable 04/20/18 05:34 Hem Pathologist Commnt No 04/20/18 05:34 PT 13.1 Sec. (12.2-14.9) 04/06/18 20:05 INR 0.94 (0.87-1.13) 04/06/18 20:05 Sodium 129 mmol/L (137-145) L 04/10/18 04:59 Potassium 3.5 mmol/L (3.6-5.0) L 04/10/18 04:59 Chloride 90.3 mmol/L (98-107) L 04/10/18 04:59 Carbon Dioxide 22 mmol/L (22-30) 04/10/18 04:59 Anion Gap 20 mmol/L 04/10/18 04:59 BUN 7 mg/dL (9-20) L 04/10/18 04:59 Creatinine 0.5 mg/dL (0.8-1.5) L 04/10/18 04:59 Estimated GFR > 60 ml/min 04/10/18 04:59 BUN/Creatinine Ratio 14 % 04/10/18 04:59 Glucose 97 mg/dL (75-100) 04/10/18 04:59 Calcium 8.3 mg/dL (8.4-10.2) L 04/10/18 04:59 Magnesium 1.10 mg/dL (1.7-2.3) L 04/09/18 09:48 Total Bilirubin 0.50 mg/dL (0.1-1.2) 04/06/18 20:05 Direct Bilirubin < 0.2 mg/dL (0-0.2) 04/06/18 20:05 Indirect Bilirubin 0.3 mg/dL 04/06/18 20:05 AST 12 units/L (5-40) 04/06/18 20:05 ALT 13 units/L (7-56) 04/06/18 20:05 Alkaline Phosphatase 74 units/L (35-129) 04/06/18 20:05 Troponin T < 0.010 ng/mL (0.00-0.029) 04/06/18 21:38 NT-Pro-B Natriuret Pep 44.32 pg/mL (0-900) 04/06/18 20:05 Total Protein 6.2 g/dL (6.3-8.2) L 04/06/18 20:05 Albumin 3.7 g/dL (3.9-5) L 04/06/18 20:05 Albumin/Globulin Ratio 1.5 % 04/06/18 20:05 Amylase 54 units/L (27-131) 04/06/18 20:05 Lipase 46 units/L (13-60) 04/06/18 20:05 Urine Color Yellow (Yellow) 04/06/18 21:14 Urine Turbidity Slightly-cloudy (Clear) 04/06/18 21:14 Urine pH 6.0 (5.0-7.0) 04/06/18 21:14 Ur Specific [place] 1.016 (1.003-1.030) 04/06/18 21:14 Urine Protein <15 mg/dl mg/dL (Negative) 04/06/18 21:14 Urine Glucose (UA) Neg mg/dL (Negative) 04/06/18 21:14 Urine Ketones Neg mg/dL (Negative) 04/06/18 21:14 Urine Blood Lg (Negative) 04/06/18 21:14 Urine Nitrite Neg (Negative) 04/06/18 21:14 Urine Bilirubin Neg (Negative) 04/06/18 21:14 Urine Urobilinogen < 2.0 mg/dL (<2.0) 04/06/18 21:14 Ur Leukocyte Esterase Neg (Negative) 04/06/18 21:14 Urine WBC (Auto) 4.0 /HPF (0.0-6.0) 04/06/18 21:14 Urine RBC (Auto) 37.0 /HPF (0.0-6.0) 04/06/18 21:14 U Epithel Cells (Auto) < 1.0 /HPF (0-13.0) 04/06/18 21:14 Amorphous Crystals Few 04/06/18 21:14 Urine Mucus Few /HPF 04/06/18 21:14 C. difficile Toxin A&B Negative (Negative) 04/07/18 Unknown
[2018-04-24] MEDS: HEPARIN SUB-Q SCH ×3 (05:17→21:34)
[2018-04-24] MEDS: MIRALAX 3350 PO SCH ×2 (09:48→21:34)
--- NOTE | 2018-04-24 11:50 | Progress Note ---
Assessment and Plan Assessment and plan: 63-year-old male presented to the emergency department complaining of diarrhea of one month duration. Patient is complaining of abdominal pain and nausea. CT abdomen shows colitis/prostatitis, and bladder distention Diarrhea colitis -Treated with IV flagyl and levaquin and resolved - GI consult appreciated Patient was treated with miralax for constipation. Hyponatremia -Resolved Distended bladder with mild hydronephrosis, ?neurogenic bladder - Urology consult appreciated. keep mcgowan and have outpatient trial. Hypokalemia - Repleted CLL - Per the record from [facility] - Oncology consult appreciated Deconditioning - PT recommended subacute rehabilitation DVT prophylaxis - heparin Disposition -Patient is unfunded and need Rehab placement. APS notified by our social work nurse and came and evaluated the patient and will try to get to his families. - patient is medically stable to be discharged to SNF/Personal home care. History Interval history: Patient was seen and evaluated this morning, no diarrhea. Sitting down on the chair, lethargic appearing. No new complaints reported to me by nursing staff. Hospitalist Physical - Physical exam Narrative exam: Not in cardiopulmonary distress. Appears lethargic The patient appeared well nourished and normally developed. Vital signs as documented. Head exam is unremarkable. No scleral icterus . Neck is without jugular venous distension, thyromegaly, or carotid bruits. Lungs are clear to auscultation. Cardiac exam reveals regular rate and Rhythm. Abdominal exam reveals normal bowel sounds. Extremities are nonedematous and both femoral and pedal pulses are normal. INVESTIGATOR INTERNAL AFFAIRS: Alert and oriented 3. No focal weakness. - Constitutional Vitals: Temp Pulse Resp BP Pulse Ox 98.0 F 65 16 108/66 100 04/24/18 05:23 04/24/18 05:23 04/24/18 05:23 04/24/18 05:23 04/24/18 05:23 General appearance: Present: no acute distress Results - Labs CBC & Chem 7: 04/20/18 05:34 04/10/18 04:59 Labs: Laboratory Last Values WBC 7.8 K/mm3 (4.5-11.0) 04/20/18 05:34 RBC 3.48 M/mm3 (3.65-5.03) L 04/20/18 05:34 Hgb 10.5 gm/dl (11.8-15.2) L 04/20/18 05:34 Hct 32.0 % (35.5-45.6) L 04/20/18 05:34 MCV 92 fl (84-94) 04/20/18 05:34 MCH 30 pg (28-32) 04/20/18 05:34 MCHC 33 % (32-34) 04/20/18 05:34 RDW 14.7 % (13.2-15.2) 04/20/18 05:34 Plt Count 139 K/mm3 (140-440) L 04/20/18 05:34 Lymph % (Auto) Acid Changer 04/20/18 05:34 Lymph # Acid Changer 04/20/18 05:34 Add Manual Diff Complete 04/20/18 05:34 Total Counted 100 04/20/18 05:34 Seg Neutrophils % Acid Changer 04/20/18 05:34 Seg Neuts % (Manual) 39.0 % (40.0-70.0) L 04/20/18 05:34 Band Neutrophils % 0 % 04/20/18 05:34 Lymphocytes % (Manual) 57.0 % (13.4-35.0) H 04/20/18 05:34 Reactive Lymphs % (Man) 0 % 04/20/18 05:34 Monocytes % (Manual) 3.0 % (0.0-7.3) 04/20/18 05:34 Eosinophils % (Manual) 0 % (0.0-4.3) 04/20/18 05:34 Basophils % (Manual) 1.0 % (0.0-1.8) 04/20/18 05:34 Metamyelocytes % 0 % 04/20/18 05:34 Myelocytes % 0 % 04/20/18 05:34 Promyelocytes % 0 % 04/20/18 05:34 Blast Cells % 0 % 04/20/18 05:34 Nucleated RBC % Not Reportable 04/20/18 05:34 Seg Neutrophils # Man 3.0 K/mm3 (1.8-7.7) 04/20/18 05:34 Band Neutrophils # 0.0 K/mm3 04/20/18 05:34 Lymphocytes # (Manual) 4.4 K/mm3 (1.2-5.4) 04/20/18 05:34 Abs React Lymphs (Man) 0.0 K/mm3 04/20/18 05:34 Monocytes # (Manual) 0.2 K/mm3 (0.0-0.8) 04/20/18 05:34 Eosinophils # (Manual) 0.0 K/mm3 (0.0-0.4) 04/20/18 05:34 Basophils # (Manual) 0.1 K/mm3 (0.0-0.1) 04/20/18 05:34 Metamyelocytes # 0.0 K/mm3 04/20/18 05:34 Myelocytes # 0.0 K/mm3 04/20/18 05:34 Promyelocytes # 0.0 K/mm3 04/20/18 05:34 Blast Cells # 0.0 K/mm3 04/20/18 05:34 WBC Morphology Not Reportable 04/20/18 05:34 Hypersegmented Neuts Not Reportable 04/20/18 05:34 Hyposegmented Neuts Not Reportable 04/20/18 05:34 Hypogranular Neuts Not Reportable 04/20/18 05:34 Smudge Cells Not Reportable 04/20/18 05:34 Toxic Granulation Not Reportable 04/20/18 05:34 Toxic Vacuolation Not Reportable 04/20/18 05:34 Dohle Bodies Not Reportable 04/20/18 05:34 Pelger-Huet Anomaly Not Reportable 04/20/18 05:34 Rosario Rods Not Reportable 04/20/18 05:34 Platelet Estimate Cons 04/20/18 05:34 Clumped Platelets Not Reportable 04/20/18 05:34 Plt Clumps, EDTA Not Reportable 04/20/18 05:34 Large Platelets Not Reportable 04/20/18 05:34 Giant Platelets Not Reportable 04/20/18 05:34 Platelet Satelliting Not Reportable 04/20/18 05:34 Plt Morphology Comment Not Reportable 04/20/18 05:34 RBC Morphology Not Reportable 04/20/18 05:34 Dimorphic RBCs Not Reportable 04/20/18 05:34 Polychromasia Not Reportable 04/20/18 05:34 Hypochromasia Not Reportable 04/20/18 05:34 Poikilocytosis Not Reportable 04/20/18 05:34 Anisocytosis 1+ 04/20/18 05:34 Microcytosis Not Reportable 04/20/18 05:34 Macrocytosis Not Reportable 04/20/18 05:34 Spherocytes Not Reportable 04/20/18 05:34 Pappenheimer Bodies Not Reportable 04/20/18 05:34 Sickle Cells Not Reportable 04/20/18 05:34 Target Cells Not Reportable 04/20/18 05:34 Tear Drop Cells Not Reportable 04/20/18 05:34 Ovalocytes Not Reportable 04/20/18 05:34 Helmet Cells Not Reportable 04/20/18 05:34 [place] Bodies Not Reportable 04/20/18 05:34 [place] Rings Not Reportable 04/20/18 05:34 Sahil Cells Not Reportable 04/20/18 05:34 Bite Cells Not Reportable 04/20/18 05:34 Crenated Cell Not Reportable 04/20/18 05:34 Elliptocytes Not Reportable 04/20/18 05:34 Acanthocytes (Spur) Not Reportable 04/20/18 05:34 Rouleaux Not Reportable 04/20/18 05:34 Hemoglobin C Crystals Not Reportable 04/20/18 05:34 Schistocytes Not Reportable 04/20/18 05:34 Malaria parasites Not Reportable 04/20/18 05:34 Trsitan Bodies Not Reportable 04/20/18 05:34 Hem Pathologist Commnt No 04/20/18 05:34 PT 13.1 Sec. (12.2-14.9) 04/06/18 20:05 INR 0.94 (0.87-1.13) 04/06/18 20:05 Sodium 129 mmol/L (137-145) L 04/10/18 04:59 Potassium 3.5 mmol/L (3.6-5.0) L 04/10/18 04:59 Chloride 90.3 mmol/L (98-107) L 04/10/18 04:59 Carbon Dioxide 22 mmol/L (22-30) 04/10/18 04:59 Anion Gap 20 mmol/L 04/10/18 04:59 BUN 7 mg/dL (9-20) L 04/10/18 04:59 Creatinine 0.5 mg/dL (0.8-1.5) L 04/10/18 04:59 Estimated GFR > 60 ml/min 04/10/18 04:59 BUN/Creatinine Ratio 14 % 04/10/18 04:59 Glucose 97 mg/dL (75-100) 04/10/18 04:59 Calcium 8.3 mg/dL (8.4-10.2) L 04/10/18 04:59 Magnesium 1.10 mg/dL (1.7-2.3) L 04/09/18 09:48 Total Bilirubin 0.50 mg/dL (0.1-1.2) 04/06/18 20:05 Direct Bilirubin < 0.2 mg/dL (0-0.2) 04/06/18 20:05 Indirect Bilirubin 0.3 mg/dL 04/06/18 20:05 AST 12 units/L (5-40) 04/06/18 20:05 ALT 13 units/L (7-56) 04/06/18 20:05 Alkaline Phosphatase 74 units/L (35-129) 04/06/18 20:05 Troponin T < 0.010 ng/mL (0.00-0.029) 04/06/18 21:38 NT-Pro-B Natriuret Pep 44.32 pg/mL (0-900) 04/06/18 20:05 Total Protein 6.2 g/dL (6.3-8.2) L 04/06/18 20:05 Albumin 3.7 g/dL (3.9-5) L 04/06/18 20:05 Albumin/Globulin Ratio 1.5 % 04/06/18 20:05 Amylase 54 units/L (27-131) 04/06/18 20:05 Lipase 46 units/L (13-60) 04/06/18 20:05 Urine Color Yellow (Yellow) 04/06/18 21:14 Urine Turbidity Slightly-cloudy (Clear) 04/06/18 21:14 Urine pH 6.0 (5.0-7.0) 04/06/18 21:14 Ur Specific [place] 1.016 (1.003-1.030) 04/06/18 21:14 Urine Protein <15 mg/dl mg/dL (Negative) 04/06/18 21:14 Urine Glucose (UA) Neg mg/dL (Negative) 04/06/18 21:14 Urine Ketones Neg mg/dL (Negative) 04/06/18 21:14 Urine Blood Lg (Negative) 04/06/18 21:14 Urine Nitrite Neg (Negative) 04/06/18 21:14 Urine Bilirubin Neg (Negative) 04/06/18 21:14 Urine Urobilinogen < 2.0 mg/dL (<2.0) 04/06/18 21:14 Ur Leukocyte Esterase Neg (Negative) 04/06/18 21:14 Urine WBC (Auto) 4.0 /HPF (0.0-6.0) 04/06/18 21:14 Urine RBC (Auto) 37.0 /HPF (0.0-6.0) 04/06/18 21:14 U Epithel Cells (Auto) < 1.0 /HPF (0-13.0) 04/06/18 21:14 Amorphous Crystals Few 04/06/18 21:14 Urine Mucus Few /HPF 04/06/18 21:14 C. difficile Toxin A&B Negative (Negative) 04/07/18 Unknown
--- NOTE | 2018-04-24 11:53 | Discharge Summary ---
Providers - Providers Date of Admission: 04/09/18 10:06 Attending physician: MARANDA AGARWAL MD 04/07/18 11:59 Consult to Physician [CONS] Routine Comment: Consulting Provider: WILLIAN NAZARIO Physician Instructions: Reason For Exam: diarrhea, abdominal distension 04/09/18 13:18 Physical Therapy Evaluation and Treat [CONS] Routine Comment: Reason For Exam: Deconditioning 04/11/18 08:43 Consult to Physician [CONS] Routine Comment: Consulting Provider: SAAD MI Physician Instructions: Reason For Exam: RIVERA, hydronephrosis 04/17/18 08:56 Consult to Physician [CONS] Routine Comment: Consulting Provider: DARSHAN MCKEON Physician Instructions: Reason For Exam: history of CLL 04/19/18 11:42 Consult to Wound/ET Nurse [CONS] Routine Reason For Exam: wound eval Primary care physician: HOT END OPERATOR Hospitalization Reason for admission: diarrhea with urinary retention Condition: Stable Hospital course: 63-year-old male presented to the emergency department complaining of diarrhea of one month duration. Patient is complaining of abdominal pain and nausea. CT abdomen shows colitis/prostatitis, and bladder distention. Catheter was placed and patient was treated with IV Flagyl and Levaquin. Patient was also noted to have diarrhea which is likely as a result of the infectious pathologist illustrated no cultures grew. Urology did see the patient and placed a Alvarado for consultation for neurogenic bladder GI evaluation was also done patient was given MiraLAX and constipation resolved. Unfortunately the patient remained in the hospital due to lack of funding and placement and no family member came forward. Eventually patient was started on Flomax and a trial of voiding was done which the patient passed a Alvarado catheter was discontinued. He is currently stable for discharge and will follow with urology and his oncologist outpatient. Infectious colitis Severe constipation Hyponatremia Distended bladder with mild hydronephrosis, presumed neurogenic bladder A BPH Hypokalemia CLL Deconditioning Disposition: [place] Time spent for discharge: 35 mins Core Measure Documentation - Palliative Care Palliative Care/ Comfort Measures: Not Applicable - Core Measures Any of the following diagnoses?: none - VTE Discharge Requirements Deep Vein Thrombosis/Pulmonary Embolism Present on Admission: No Exam - Physical Exam Narrative exam: Not in cardiopulmonary distress. Appears lethargic The patient appeared well nourished and normally developed. Vital signs as documented. Head exam is unremarkable. No scleral icterus . Neck is without jugular venous distension, thyromegaly, or carotid bruits. Lungs are clear to auscultation. Cardiac exam reveals regular rate and Rhythm. Abdominal exam reveals normal bowel sounds. Extremities are nonedematous and both femoral and pedal pulses are normal. HUMAN SERVICES PROFESSIONAL: Alert and oriented 3. No focal weakness. - Constitutional Vitals: Temp Pulse Resp BP Pulse Ox 98.0 F 65 16 108/66 100 04/24/18 05:23 04/24/18 05:23 04/24/18 05:23 04/24/18 05:23 04/24/18 05:23 Plan Activity: advance as tolerated, fall precautions Diet: advance as tolerated Special Instructions: record daily BP diary Additional Instructions: follow with primary transfer professor. Dr Cole in [place] Follow up with: PRIMARY MD JUAN LUIS [Primary Care Provider] - 3-5 Days DARSHAN MCKEON MD [Staff Physician] - 7 Days DA BAY MD [Staff Physician] - 7 Days
[2018-04-25] MEDS: HEPARIN SUB-Q SCH ×3 (05:42→22:03)
[2018-04-25] MEDS: MIRALAX 3350 PO SCH ×2 (10:00→22:55)
--- NOTE | 2018-04-25 18:06 | Progress Note ---
Assessment and Plan Assessment and plan: 63-year-old male presented to the emergency department complaining of diarrhea of one month duration. Patient is complaining of abdominal pain and nausea. CT abdomen shows colitis/prostatitis, and bladder distention Diarrhea colitis -Treated with IV flagyl and levaquin and resolved - GI consult appreciated Patient was treated with miralax for constipation. Hyponatremia -monitor Distended bladder with mild hydronephrosis, ?neurogenic bladder - Urology consult appreciated. keep mcgowan and have outpatient trial. Hypokalemia - Replete CLL - Per the record from [facility] - Oncology consult appreciated Deconditioning - PT recommended subacute rehabilitation DVT prophylaxis - heparin Disposition -Patient is unfunded and need Rehab placement. APS notified by our social services manager and came and evaluated the patient and will try to get to his families. - patient is medically stable to be discharged to SNF/Personal home care. History Interval history: Patient was seen and evaluated this morning, no diarrhea. Sitting down on the chair discussing with case mangement at the time of my visit. more awake today and corporative . No new complaints reported to me by nursing staff. Hospitalist Physical - Physical exam Narrative exam: Not in cardiopulmonary distress. Appears lethargic The patient appeared well nourished and normally developed. Vital signs as documented. Head exam is unremarkable. No scleral icterus . Neck is without jugular venous distension, thyromegaly, or carotid bruits. Lungs are clear to auscultation. Cardiac exam reveals regular rate and Rhythm. Abdominal exam reveals normal bowel sounds. Extremities are nonedematous and both femoral and pedal pulses are normal. INSURANCE WRITER: Alert and oriented 3. No focal weakness. - Constitutional Vitals: Temp Pulse Resp BP Pulse Ox 98.5 F 95 H 18 111/71 97 04/25/18 12:01 04/25/18 12:01 04/25/18 12:01 04/25/18 12:01 04/25/18 12:01 General appearance: Present: no acute distress Results - Labs CBC & Chem 7: 04/20/18 05:34 04/10/18 04:59 Labs: Laboratory Last Values WBC 7.8 K/mm3 (4.5-11.0) 04/20/18 05:34 RBC 3.48 M/mm3 (3.65-5.03) L 04/20/18 05:34 Hgb 10.5 gm/dl (11.8-15.2) L 04/20/18 05:34 Hct 32.0 % (35.5-45.6) L 04/20/18 05:34 MCV 92 fl (84-94) 04/20/18 05:34 MCH 30 pg (28-32) 04/20/18 05:34 MCHC 33 % (32-34) 04/20/18 05:34 RDW 14.7 % (13.2-15.2) 04/20/18 05:34 Plt Count 139 K/mm3 (140-440) L 04/20/18 05:34 Lymph % (Auto) Principal Statistical Programmer 04/20/18 05:34 Lymph # Principal Statistical Programmer 04/20/18 05:34 Add Manual Diff Complete 04/20/18 05:34 Total Counted 100 04/20/18 05:34 Seg Neutrophils % Principal Statistical Programmer 04/20/18 05:34 Seg Neuts % (Manual) 39.0 % (40.0-70.0) L 04/20/18 05:34 Band Neutrophils % 0 % 04/20/18 05:34 Lymphocytes % (Manual) 57.0 % (13.4-35.0) H 04/20/18 05:34 Reactive Lymphs % (Man) 0 % 04/20/18 05:34 Monocytes % (Manual) 3.0 % (0.0-7.3) 04/20/18 05:34 Eosinophils % (Manual) 0 % (0.0-4.3) 04/20/18 05:34 Basophils % (Manual) 1.0 % (0.0-1.8) 04/20/18 05:34 Metamyelocytes % 0 % 04/20/18 05:34 Myelocytes % 0 % 04/20/18 05:34 Promyelocytes % 0 % 04/20/18 05:34 Blast Cells % 0 % 04/20/18 05:34 Nucleated RBC % Not Reportable 04/20/18 05:34 Seg Neutrophils # Man 3.0 K/mm3 (1.8-7.7) 04/20/18 05:34 Band Neutrophils # 0.0 K/mm3 04/20/18 05:34 Lymphocytes # (Manual) 4.4 K/mm3 (1.2-5.4) 04/20/18 05:34 Abs React Lymphs (Man) 0.0 K/mm3 04/20/18 05:34 Monocytes # (Manual) 0.2 K/mm3 (0.0-0.8) 04/20/18 05:34 Eosinophils # (Manual) 0.0 K/mm3 (0.0-0.4) 04/20/18 05:34 Basophils # (Manual) 0.1 K/mm3 (0.0-0.1) 04/20/18 05:34 Metamyelocytes # 0.0 K/mm3 04/20/18 05:34 Myelocytes # 0.0 K/mm3 04/20/18 05:34 Promyelocytes # 0.0 K/mm3 04/20/18 05:34 Blast Cells # 0.0 K/mm3 04/20/18 05:34 WBC Morphology Not Reportable 04/20/18 05:34 Hypersegmented Neuts Not Reportable 04/20/18 05:34 Hyposegmented Neuts Not Reportable 04/20/18 05:34 Hypogranular Neuts Not Reportable 04/20/18 05:34 Smudge Cells Not Reportable 04/20/18 05:34 Toxic Granulation Not Reportable 04/20/18 05:34 Toxic Vacuolation Not Reportable 04/20/18 05:34 Dohle Bodies Not Reportable 04/20/18 05:34 Pelger-Huet Anomaly Not Reportable 04/20/18 05:34 Rosario Rods Not Reportable 04/20/18 05:34 Platelet Estimate Cons 04/20/18 05:34 Clumped Platelets Not Reportable 04/20/18 05:34 Plt Clumps, EDTA Not Reportable 04/20/18 05:34 Large Platelets Not Reportable 04/20/18 05:34 Giant Platelets Not Reportable 04/20/18 05:34 Platelet Satelliting Not Reportable 04/20/18 05:34 Plt Morphology Comment Not Reportable 04/20/18 05:34 RBC Morphology Not Reportable 04/20/18 05:34 Dimorphic RBCs Not Reportable 04/20/18 05:34 Polychromasia Not Reportable 04/20/18 05:34 Hypochromasia Not Reportable 04/20/18 05:34 Poikilocytosis Not Reportable 04/20/18 05:34 Anisocytosis 1+ 04/20/18 05:34 Microcytosis Not Reportable 04/20/18 05:34 Macrocytosis Not Reportable 04/20/18 05:34 Spherocytes Not Reportable 04/20/18 05:34 Pappenheimer Bodies Not Reportable 04/20/18 05:34 Sickle Cells Not Reportable 04/20/18 05:34 Target Cells Not Reportable 04/20/18 05:34 Tear Drop Cells Not Reportable 04/20/18 05:34 Ovalocytes Not Reportable 04/20/18 05:34 Helmet Cells Not Reportable 04/20/18 05:34 [place] Bodies Not Reportable 04/20/18 05:34 [place] Rings Not Reportable 04/20/18 05:34 Sahil Cells Not Reportable 04/20/18 05:34 Bite Cells Not Reportable 04/20/18 05:34 Crenated Cell Not Reportable 04/20/18 05:34 Elliptocytes Not Reportable 04/20/18 05:34 Acanthocytes (Spur) Not Reportable 04/20/18 05:34 Rouleaux Not Reportable 04/20/18 05:34 Hemoglobin C Crystals Not Reportable 04/20/18 05:34 Schistocytes Not Reportable 04/20/18 05:34 Malaria parasites Not Reportable 04/20/18 05:34 [place] Bodies Not Reportable 04/20/18 05:34 Hem Pathologist Commnt No 04/20/18 05:34 PT 13.1 Sec. (12.2-14.9) 04/06/18 20:05 INR 0.94 (0.87-1.13) 04/06/18 20:05 Sodium 129 mmol/L (137-145) L 04/10/18 04:59 Potassium 3.5 mmol/L (3.6-5.0) L 04/10/18 04:59 Chloride 90.3 mmol/L (98-107) L 04/10/18 04:59 Carbon Dioxide 22 mmol/L (22-30) 04/10/18 04:59 Anion Gap 20 mmol/L 04/10/18 04:59 BUN 7 mg/dL (9-20) L 04/10/18 04:59 Creatinine 0.5 mg/dL (0.8-1.5) L 04/10/18 04:59 Estimated GFR > 60 ml/min 04/10/18 04:59 BUN/Creatinine Ratio 14 % 04/10/18 04:59 Glucose 97 mg/dL (75-100) 04/10/18 04:59 Calcium 8.3 mg/dL (8.4-10.2) L 04/10/18 04:59 Magnesium 1.10 mg/dL (1.7-2.3) L 04/09/18 09:48 Total Bilirubin 0.50 mg/dL (0.1-1.2) 04/06/18 20:05 Direct Bilirubin < 0.2 mg/dL (0-0.2) 04/06/18 20:05 Indirect Bilirubin 0.3 mg/dL 04/06/18 20:05 AST 12 units/L (5-40) 04/06/18 20:05 ALT 13 units/L (7-56) 04/06/18 20:05 Alkaline Phosphatase 74 units/L (35-129) 04/06/18 20:05 Troponin T < 0.010 ng/mL (0.00-0.029) 04/06/18 21:38 NT-Pro-B Natriuret Pep 44.32 pg/mL (0-900) 04/06/18 20:05 Total Protein 6.2 g/dL (6.3-8.2) L 04/06/18 20:05 Albumin 3.7 g/dL (3.9-5) L 04/06/18 20:05 Albumin/Globulin Ratio 1.5 % 04/06/18 20:05 Amylase 54 units/L (27-131) 04/06/18 20:05 Lipase 46 units/L (13-60) 04/06/18 20:05 Urine Color Yellow (Yellow) 04/06/18 21:14 Urine Turbidity Slightly-cloudy (Clear) 04/06/18 21:14 Urine pH 6.0 (5.0-7.0) 04/06/18 21:14 Ur Specific [place] 1.016 (1.003-1.030) 04/06/18 21:14 Urine Protein <15 mg/dl mg/dL (Negative) 04/06/18 21:14 Urine Glucose (UA) Neg mg/dL (Negative) 04/06/18 21:14 Urine Ketones Neg mg/dL (Negative) 04/06/18 21:14 Urine Blood Lg (Negative) 04/06/18 21:14 Urine Nitrite Neg (Negative) 04/06/18 21:14 Urine Bilirubin Neg (Negative) 04/06/18 21:14 Urine Urobilinogen < 2.0 mg/dL (<2.0) 04/06/18 21:14 Ur Leukocyte Esterase Neg (Negative) 04/06/18 21:14 Urine WBC (Auto) 4.0 /HPF (0.0-6.0) 04/06/18 21:14 Urine RBC (Auto) 37.0 /HPF (0.0-6.0) 04/06/18 21:14 U Epithel Cells (Auto) < 1.0 /HPF (0-13.0) 04/06/18 21:14 Amorphous Crystals Few 04/06/18 21:14 Urine Mucus Few /HPF 04/06/18 21:14 C. difficile Toxin A&B Negative (Negative) 04/07/18 Unknown
[2018-04-25] MEDS: TYLENOL PO PRN (22:03)
[2018-04-26] MEDS: HEPARIN SUB-Q SCH ×3 (05:53→21:05)
[2018-04-26] MEDS: MIRALAX 3350 PO SCH ×2 (09:10→21:07)
[2018-04-26] MEDS: TYLENOL PO PRN (15:22)
--- NOTE | 2018-04-26 18:55 | Progress Note ---
Assessment and Plan Assessment and plan: 63-year-old male presented to the emergency department complaining of diarrhea of one month duration. Patient is complaining of abdominal pain and nausea. CT abdomen shows colitis/prostatitis, and bladder distention Diarrhea colitis -Treated with IV flagyl and levaquin and resolved - GI consult appreciated Patient was treated with miralax for constipation. Hyponatremia -monitor Distended bladder with mild hydronephrosis, ?neurogenic bladder - Urology consult appreciated. keep mcgowan and have outpatient trial. - FLOMAX trial Hypokalemia - Replete CLL - Per the record from [facility] - Oncology consult appreciated Deconditioning - PT recommended subacute rehabilitation DVT prophylaxis - heparin Disposition -Patient is unfunded and need Rehab placement. APS notified by our social staff worker and came and evaluated the patient and will try to get to his families. - patient is medically stable to be discharged to SNF/Personal home care. -SPOKE WITH UROLOGIST. MCGOWAN MUST COME OUT NO LATER THAN 6AM TOMORROW. History Interval history: Patient was seen and evaluated this morning, no diarrhea. Sitting down on the chair discussing with krishna paige at the time of my visit. more awake today and corporative . No new complaints reported to me by nursing staff. Hospitalist Physical - Physical exam Narrative exam: Not in cardiopulmonary distress. Appears lethargic The patient appeared well nourished and normally developed. Vital signs as documented. Head exam is unremarkable. No scleral icterus . Neck is without jugular venous distension, thyromegaly, or carotid bruits. Lungs are clear to auscultation. Cardiac exam reveals regular rate and Rhythm. Abdominal exam reveals normal bowel sounds. Extremities are nonedematous and both femoral and pedal pulses are normal. PUBLIC INFORMATION OFFICER: Alert and oriented 3. No focal weakness. - Constitutional Vitals: Temp Pulse Resp BP Pulse Ox 98.0 F 72 14 103/64 98 04/26/18 16:47 04/26/18 16:47 04/26/18 16:47 04/26/18 16:47 04/26/18 16:47 General appearance: Present: no acute distress Results - Labs CBC & Chem 7: 04/20/18 05:34 04/10/18 04:59 Labs: Laboratory Last Values WBC 7.8 K/mm3 (4.5-11.0) 04/20/18 05:34 RBC 3.48 M/mm3 (3.65-5.03) L 04/20/18 05:34 Hgb 10.5 gm/dl (11.8-15.2) L 04/20/18 05:34 Hct 32.0 % (35.5-45.6) L 04/20/18 05:34 MCV 92 fl (84-94) 04/20/18 05:34 MCH 30 pg (28-32) 04/20/18 05:34 MCHC 33 % (32-34) 04/20/18 05:34 RDW 14.7 % (13.2-15.2) 04/20/18 05:34 Plt Count 139 K/mm3 (140-440) L 04/20/18 05:34 Lymph % (Auto) Material Requisitioner 04/20/18 05:34 Lymph # Material Requisitioner 04/20/18 05:34 Add Manual Diff Complete 04/20/18 05:34 Total Counted 100 04/20/18 05:34 Seg Neutrophils % Material Requisitioner 04/20/18 05:34 Seg Neuts % (Manual) 39.0 % (40.0-70.0) L 04/20/18 05:34 Band Neutrophils % 0 % 04/20/18 05:34 Lymphocytes % (Manual) 57.0 % (13.4-35.0) H 04/20/18 05:34 Reactive Lymphs % (Man) 0 % 04/20/18 05:34 Monocytes % (Manual) 3.0 % (0.0-7.3) 04/20/18 05:34 Eosinophils % (Manual) 0 % (0.0-4.3) 04/20/18 05:34 Basophils % (Manual) 1.0 % (0.0-1.8) 04/20/18 05:34 Metamyelocytes % 0 % 04/20/18 05:34 Myelocytes % 0 % 04/20/18 05:34 Promyelocytes % 0 % 04/20/18 05:34 Blast Cells % 0 % 04/20/18 05:34 Nucleated RBC % Not Reportable 04/20/18 05:34 Seg Neutrophils # Man 3.0 K/mm3 (1.8-7.7) 04/20/18 05:34 Band Neutrophils # 0.0 K/mm3 04/20/18 05:34 Lymphocytes # (Manual) 4.4 K/mm3 (1.2-5.4) 04/20/18 05:34 Abs React Lymphs (Man) 0.0 K/mm3 04/20/18 05:34 Monocytes # (Manual) 0.2 K/mm3 (0.0-0.8) 04/20/18 05:34 Eosinophils # (Manual) 0.0 K/mm3 (0.0-0.4) 04/20/18 05:34 Basophils # (Manual) 0.1 K/mm3 (0.0-0.1) 04/20/18 05:34 Metamyelocytes # 0.0 K/mm3 04/20/18 05:34 Myelocytes # 0.0 K/mm3 04/20/18 05:34 Promyelocytes # 0.0 K/mm3 04/20/18 05:34 Blast Cells # 0.0 K/mm3 04/20/18 05:34 WBC Morphology Not Reportable 04/20/18 05:34 Hypersegmented Neuts Not Reportable 04/20/18 05:34 Hyposegmented Neuts Not Reportable 04/20/18 05:34 Hypogranular Neuts Not Reportable 04/20/18 05:34 Smudge Cells Not Reportable 04/20/18 05:34 Toxic Granulation Not Reportable 04/20/18 05:34 Toxic Vacuolation Not Reportable 04/20/18 05:34 Dohle Bodies Not Reportable 04/20/18 05:34 Pelger-Huet Anomaly Not Reportable 04/20/18 05:34 Rosario Rods Not Reportable 04/20/18 05:34 Platelet Estimate Cons 04/20/18 05:34 Clumped Platelets Not Reportable 04/20/18 05:34 Plt Clumps, EDTA Not Reportable 04/20/18 05:34 Large Platelets Not Reportable 04/20/18 05:34 Giant Platelets Not Reportable 04/20/18 05:34 Platelet Satelliting Not Reportable 04/20/18 05:34 Plt Morphology Comment Not Reportable 04/20/18 05:34 RBC Morphology Not Reportable 04/20/18 05:34 Dimorphic RBCs Not Reportable 04/20/18 05:34 Polychromasia Not Reportable 04/20/18 05:34 Hypochromasia Not Reportable 04/20/18 05:34 Poikilocytosis Not Reportable 04/20/18 05:34 Anisocytosis 1+ 04/20/18 05:34 Microcytosis Not Reportable 04/20/18 05:34 Macrocytosis Not Reportable 04/20/18 05:34 Spherocytes Not Reportable 04/20/18 05:34 Pappenheimer Bodies Not Reportable 04/20/18 05:34 Sickle Cells Not Reportable 04/20/18 05:34 Target Cells Not Reportable 04/20/18 05:34 Tear Drop Cells Not Reportable 04/20/18 05:34 Ovalocytes Not Reportable 04/20/18 05:34 Helmet Cells Not Reportable 04/20/18 05:34 [place] Bodies Not Reportable 04/20/18 05:34 [place] Rings Not Reportable 04/20/18 05:34 [place] Cells Not Reportable 04/20/18 05:34 Bite Cells Not Reportable 04/20/18 05:34 Crenated Cell Not Reportable 04/20/18 05:34 Elliptocytes Not Reportable 04/20/18 05:34 Acanthocytes (Spur) Not Reportable 04/20/18 05:34 Rouleaux Not Reportable 04/20/18 05:34 Hemoglobin C Crystals Not Reportable 04/20/18 05:34 Schistocytes Not Reportable 04/20/18 05:34 Malaria parasites Not Reportable 04/20/18 05:34 Tristan Bodies Not Reportable 04/20/18 05:34 Hem Pathologist Commnt No 04/20/18 05:34 PT 13.1 Sec. (12.2-14.9) 04/06/18 20:05 INR 0.94 (0.87-1.13) 04/06/18 20:05 Sodium 129 mmol/L (137-145) L 04/10/18 04:59 Potassium 3.5 mmol/L (3.6-5.0) L 04/10/18 04:59 Chloride 90.3 mmol/L (98-107) L 04/10/18 04:59 Carbon Dioxide 22 mmol/L (22-30) 04/10/18 04:59 Anion Gap 20 mmol/L 04/10/18 04:59 BUN 7 mg/dL (9-20) L 04/10/18 04:59 Creatinine 0.5 mg/dL (0.8-1.5) L 04/10/18 04:59 Estimated GFR > 60 ml/min 04/10/18 04:59 BUN/Creatinine Ratio 14 % 04/10/18 04:59 Glucose 97 mg/dL (75-100) 04/10/18 04:59 Calcium 8.3 mg/dL (8.4-10.2) L 04/10/18 04:59 Magnesium 1.10 mg/dL (1.7-2.3) L 04/09/18 09:48 Total Bilirubin 0.50 mg/dL (0.1-1.2) 04/06/18 20:05 Direct Bilirubin < 0.2 mg/dL (0-0.2) 04/06/18 20:05 Indirect Bilirubin 0.3 mg/dL 04/06/18 20:05 AST 12 units/L (5-40) 04/06/18 20:05 ALT 13 units/L (7-56) 04/06/18 20:05 Alkaline Phosphatase 74 units/L (35-129) 04/06/18 20:05 Troponin T < 0.010 ng/mL (0.00-0.029) 04/06/18 21:38 NT-Pro-B Natriuret Pep 44.32 pg/mL (0-900) 04/06/18 20:05 Total Protein 6.2 g/dL (6.3-8.2) L 04/06/18 20:05 Albumin 3.7 g/dL (3.9-5) L 04/06/18 20:05 Albumin/Globulin Ratio 1.5 % 04/06/18 20:05 Amylase 54 units/L (27-131) 04/06/18 20:05 Lipase 46 units/L (13-60) 04/06/18 20:05 Urine Color Yellow (Yellow) 04/06/18 21:14 Urine Turbidity Slightly-cloudy (Clear) 04/06/18 21:14 Urine pH 6.0 (5.0-7.0) 04/06/18 21:14 Ur Specific [place] 1.016 (1.003-1.030) 04/06/18 21:14 Urine Protein <15 mg/dl mg/dL (Negative) 04/06/18 21:14 Urine Glucose (UA) Neg mg/dL (Negative) 04/06/18 21:14 Urine Ketones Neg mg/dL (Negative) 04/06/18 21:14 Urine Blood Lg (Negative) 04/06/18 21:14 Urine Nitrite Neg (Negative) 04/06/18 21:14 Urine Bilirubin Neg (Negative) 04/06/18 21:14 Urine Urobilinogen < 2.0 mg/dL (<2.0) 04/06/18 21:14 Ur Leukocyte Esterase Neg (Negative) 04/06/18 21:14 Urine WBC (Auto) 4.0 /HPF (0.0-6.0) 04/06/18 21:14 Urine RBC (Auto) 37.0 /HPF (0.0-6.0) 04/06/18 21:14 U Epithel Cells (Auto) < 1.0 /HPF (0-13.0) 04/06/18 21:14 Amorphous Crystals Few 04/06/18 21:14 Urine Mucus Few /HPF 04/06/18 21:14 C. difficile Toxin A&B Negative (Negative) 04/07/18 Unknown
[2018-04-26] MEDS: FLOMAX PO SCH (21:05)
[2018-04-27] MEDS: HEPARIN SUB-Q SCH ×3 (05:26→21:23)
[2018-04-27] MEDS: MIRALAX 3350 PO SCH ×3 (10:54→21:23)
[2018-04-27] MEDS: FLOMAX PO SCH (10:55)
--- NOTE | 2018-04-27 17:52 | Progress Note ---
Assessment and Plan Assessment and plan: 63-year-old male presented to the emergency department complaining of diarrhea of one month duration. Patient is complaining of abdominal pain and nausea. CT abdomen shows colitis/prostatitis, and bladder distention Diarrhea colitis -Treated with IV flagyl and levaquin and resolved - GI consult appreciated Patient was treated with miralax for constipation. Hyponatremia -monitor Distended bladder with mild hydronephrosis, ?neurogenic bladder - Urology consult appreciated. mcgowan removed and patient voided - FLOMAX trial Hypokalemia - Replete CLL - Per the record from [facility] - Oncology consult appreciated Deconditioning - PT recommended subacute rehabilitation DVT prophylaxis - heparin Disposition -Patient is unfunded and need Rehab placement. APS notified by our social media assistant and came and evaluated the patient and will try to get to his families. - patient is medically stable to be discharged to SNF/Personal home care. History Interval history: Patient was seen and evaluated this morning, no diarrhea. Sitting down on the chair discussing with case mangement at the time of my visit. more awake today and corporative . No new complaints reported to me by nursing staff. Hospitalist Physical - Physical exam Narrative exam: Not in cardiopulmonary distress. Appears lethargic The patient appeared well nourished and normally developed. Vital signs as documented. Head exam is unremarkable. No scleral icterus . Neck is without jugular venous distension, thyromegaly, or carotid bruits. Lungs are clear to auscultation. Cardiac exam reveals regular rate and Rhythm. Abdominal exam reveals normal bowel sounds. Extremities are nonedematous and both femoral and pedal pulses are normal. TANK BUILDER AND ERECTOR: Alert and oriented 3. No focal weakness. - Constitutional Vitals: Temp Pulse Resp BP Pulse Ox 97.6 F 75 14 102/64 98 04/27/18 12:07 04/27/18 12:07 04/27/18 12:07 04/27/18 12:07 04/27/18 12:07 General appearance: Present: no acute distress Results - Labs CBC & Chem 7: 04/20/18 05:34 04/10/18 04:59 Labs: Laboratory Last Values WBC 7.8 K/mm3 (4.5-11.0) 04/20/18 05:34 RBC 3.48 M/mm3 (3.65-5.03) L 04/20/18 05:34 Hgb 10.5 gm/dl (11.8-15.2) L 04/20/18 05:34 Hct 32.0 % (35.5-45.6) L 04/20/18 05:34 MCV 92 fl (84-94) 04/20/18 05:34 MCH 30 pg (28-32) 04/20/18 05:34 MCHC 33 % (32-34) 04/20/18 05:34 RDW 14.7 % (13.2-15.2) 04/20/18 05:34 Plt Count 139 K/mm3 (140-440) L 04/20/18 05:34 Lymph % (Auto) Commercial Administrator 04/20/18 05:34 Lymph # Commercial Administrator 04/20/18 05:34 Add Manual Diff Complete 04/20/18 05:34 Total Counted 100 04/20/18 05:34 Seg Neutrophils % Commercial Administrator 04/20/18 05:34 Seg Neuts % (Manual) 39.0 % (40.0-70.0) L 04/20/18 05:34 Band Neutrophils % 0 % 04/20/18 05:34 Lymphocytes % (Manual) 57.0 % (13.4-35.0) H 04/20/18 05:34 Reactive Lymphs % (Man) 0 % 04/20/18 05:34 Monocytes % (Manual) 3.0 % (0.0-7.3) 04/20/18 05:34 Eosinophils % (Manual) 0 % (0.0-4.3) 04/20/18 05:34 Basophils % (Manual) 1.0 % (0.0-1.8) 04/20/18 05:34 Metamyelocytes % 0 % 04/20/18 05:34 Myelocytes % 0 % 04/20/18 05:34 Promyelocytes % 0 % 04/20/18 05:34 Blast Cells % 0 % 04/20/18 05:34 Nucleated RBC % Not Reportable 04/20/18 05:34 Seg Neutrophils # Man 3.0 K/mm3 (1.8-7.7) 04/20/18 05:34 Band Neutrophils # 0.0 K/mm3 04/20/18 05:34 Lymphocytes # (Manual) 4.4 K/mm3 (1.2-5.4) 04/20/18 05:34 Abs React Lymphs (Man) 0.0 K/mm3 04/20/18 05:34 Monocytes # (Manual) 0.2 K/mm3 (0.0-0.8) 04/20/18 05:34 Eosinophils # (Manual) 0.0 K/mm3 (0.0-0.4) 04/20/18 05:34 Basophils # (Manual) 0.1 K/mm3 (0.0-0.1) 04/20/18 05:34 Metamyelocytes # 0.0 K/mm3 04/20/18 05:34 Myelocytes # 0.0 K/mm3 04/20/18 05:34 Promyelocytes # 0.0 K/mm3 04/20/18 05:34 Blast Cells # 0.0 K/mm3 04/20/18 05:34 WBC Morphology Not Reportable 04/20/18 05:34 Hypersegmented Neuts Not Reportable 04/20/18 05:34 Hyposegmented Neuts Not Reportable 04/20/18 05:34 Hypogranular Neuts Not Reportable 04/20/18 05:34 Smudge Cells Not Reportable 04/20/18 05:34 Toxic Granulation Not Reportable 04/20/18 05:34 Toxic Vacuolation Not Reportable 04/20/18 05:34 Dohle Bodies Not Reportable 04/20/18 05:34 Pelger-Huet Anomaly Not Reportable 04/20/18 05:34 Rosario Rods Not Reportable 04/20/18 05:34 Platelet Estimate Cons 04/20/18 05:34 Clumped Platelets Not Reportable 04/20/18 05:34 Plt Clumps, EDTA Not Reportable 04/20/18 05:34 Large Platelets Not Reportable 04/20/18 05:34 Giant Platelets Not Reportable 04/20/18 05:34 Platelet Satelliting Not Reportable 04/20/18 05:34 Plt Morphology Comment Not Reportable 04/20/18 05:34 RBC Morphology Not Reportable 04/20/18 05:34 Dimorphic RBCs Not Reportable 04/20/18 05:34 Polychromasia Not Reportable 04/20/18 05:34 Hypochromasia Not Reportable 04/20/18 05:34 Poikilocytosis Not Reportable 04/20/18 05:34 Anisocytosis 1+ 04/20/18 05:34 Microcytosis Not Reportable 04/20/18 05:34 Macrocytosis Not Reportable 04/20/18 05:34 Spherocytes Not Reportable 04/20/18 05:34 Pappenheimer Bodies Not Reportable 04/20/18 05:34 Sickle Cells Not Reportable 04/20/18 05:34 Target Cells Not Reportable 04/20/18 05:34 Tear Drop Cells Not Reportable 04/20/18 05:34 Ovalocytes Not Reportable 04/20/18 05:34 Helmet Cells Not Reportable 04/20/18 05:34 [place] Bodies Not Reportable 04/20/18 05:34 [place] Rings Not Reportable 04/20/18 05:34 [place] Cells Not Reportable 04/20/18 05:34 Bite Cells Not Reportable 04/20/18 05:34 Crenated Cell Not Reportable 04/20/18 05:34 Elliptocytes Not Reportable 04/20/18 05:34 Acanthocytes (Spur) Not Reportable 04/20/18 05:34 Rouleaux Not Reportable 04/20/18 05:34 Hemoglobin C Crystals Not Reportable 04/20/18 05:34 Schistocytes Not Reportable 04/20/18 05:34 Malaria parasites Not Reportable 04/20/18 05:34 Tristan Bodies Not Reportable 04/20/18 05:34 Hem Pathologist Commnt No 04/20/18 05:34 PT 13.1 Sec. (12.2-14.9) 04/06/18 20:05 INR 0.94 (0.87-1.13) 04/06/18 20:05 Sodium 129 mmol/L (137-145) L 04/10/18 04:59 Potassium 3.5 mmol/L (3.6-5.0) L 04/10/18 04:59 Chloride 90.3 mmol/L (98-107) L 04/10/18 04:59 Carbon Dioxide 22 mmol/L (22-30) 04/10/18 04:59 Anion Gap 20 mmol/L 04/10/18 04:59 BUN 7 mg/dL (9-20) L 04/10/18 04:59 Creatinine 0.5 mg/dL (0.8-1.5) L 04/10/18 04:59 Estimated GFR > 60 ml/min 04/10/18 04:59 BUN/Creatinine Ratio 14 % 04/10/18 04:59 Glucose 97 mg/dL (75-100) 04/10/18 04:59 Calcium 8.3 mg/dL (8.4-10.2) L 04/10/18 04:59 Magnesium 1.10 mg/dL (1.7-2.3) L 04/09/18 09:48 Total Bilirubin 0.50 mg/dL (0.1-1.2) 04/06/18 20:05 Direct Bilirubin < 0.2 mg/dL (0-0.2) 04/06/18 20:05 Indirect Bilirubin 0.3 mg/dL 04/06/18 20:05 AST 12 units/L (5-40) 04/06/18 20:05 ALT 13 units/L (7-56) 04/06/18 20:05 Alkaline Phosphatase 74 units/L (35-129) 04/06/18 20:05 Troponin T < 0.010 ng/mL (0.00-0.029) 04/06/18 21:38 NT-Pro-B Natriuret Pep 44.32 pg/mL (0-900) 04/06/18 20:05 Total Protein 6.2 g/dL (6.3-8.2) L 04/06/18 20:05 Albumin 3.7 g/dL (3.9-5) L 04/06/18 20:05 Albumin/Globulin Ratio 1.5 % 04/06/18 20:05 Amylase 54 units/L (27-131) 04/06/18 20:05 Lipase 46 units/L (13-60) 04/06/18 20:05 Urine Color Yellow (Yellow) 04/06/18 21:14 Urine Turbidity Slightly-cloudy (Clear) 04/06/18 21:14 Urine pH 6.0 (5.0-7.0) 04/06/18 21:14 Ur Specific [place] 1.016 (1.003-1.030) 04/06/18 21:14 Urine Protein <15 mg/dl mg/dL (Negative) 04/06/18 21:14 Urine Glucose (UA) Neg mg/dL (Negative) 04/06/18 21:14 Urine Ketones Neg mg/dL (Negative) 04/06/18 21:14 Urine Blood Lg (Negative) 04/06/18 21:14 Urine Nitrite Neg (Negative) 04/06/18 21:14 Urine Bilirubin Neg (Negative) 04/06/18 21:14 Urine Urobilinogen < 2.0 mg/dL (<2.0) 04/06/18 21:14 Ur Leukocyte Esterase Neg (Negative) 04/06/18 21:14 Urine WBC (Auto) 4.0 /HPF (0.0-6.0) 04/06/18 21:14 Urine RBC (Auto) 37.0 /HPF (0.0-6.0) 04/06/18 21:14 U Epithel Cells (Auto) < 1.0 /HPF (0-13.0) 04/06/18 21:14 Amorphous Crystals Few 04/06/18 21:14 Urine Mucus Few /HPF 04/06/18 21:14 C. difficile Toxin A&B Negative (Negative) 04/07/18 Unknown
[2018-04-27] MEDS: TYLENOL PO PRN (21:23)
[2018-04-28] MEDS: HEPARIN SUB-Q SCH ×3 (05:05→21:44)
[2018-04-28] MEDS: MIRALAX 3350 PO SCH ×2 (09:48→21:44)
[2018-04-28] MEDS: FLOMAX PO SCH (09:48)
--- NOTE | 2018-04-28 11:58 | Progress Note ---
Assessment and Plan Assessment and plan: 63-year-old male presented to the emergency department complaining of diarrhea of one month duration. Patient is complaining of abdominal pain and nausea. CT abdomen shows colitis/prostatitis, and bladder distention Diarrhea colitis -Treated with IV flagyl and levaquin and resolved - GI consult appreciated Patient was treated with miralax for constipation. Hyponatremia -monitor Distended bladder with mild hydronephrosis, ?neurogenic bladder - Urology consult appreciated. mcgowan removed and patient voided - FLOMAX trial Hypokalemia - Replete CLL - Per the record from [facility] - Oncology consult appreciated Deconditioning - PT recommended subacute rehabilitation DVT prophylaxis - heparin Disposition -Patient is unfunded and need Rehab placement. APS notified by our healthcare social worker and came and evaluated the patient and will try to get to his families. - patient is medically stable to be discharged to SNF/Personal home care. History Interval history: Patient was seen and evaluated this morning, no diarrhea. Sitting down on the chair discussing with case mangement at the time of my visit. more awake today and corporative . No new complaints reported to me by nursing staff. Hospitalist Physical - Physical exam Narrative exam: Not in cardiopulmonary distress. Appears lethargic The patient appeared well nourished and normally developed. Vital signs as documented. Head exam is unremarkable. No scleral icterus . Neck is without jugular venous distension, thyromegaly, or carotid bruits. Lungs are clear to auscultation. Cardiac exam reveals regular rate and Rhythm. Abdominal exam reveals normal bowel sounds. Extremities are nonedematous and both femoral and pedal pulses are normal. BACKEND TESTER: Alert and oriented 3. No focal weakness. - Constitutional Vitals: Temp Pulse Resp BP Pulse Ox 98.5 F 75 14 107/64 98 04/28/18 11:35 04/28/18 11:35 04/28/18 11:35 04/28/18 11:35 04/28/18 11:35 General appearance: Present: no acute distress Results - Labs CBC & Chem 7: 04/20/18 05:34 04/10/18 04:59 Labs: Laboratory Last Values WBC 7.8 K/mm3 (4.5-11.0) 04/20/18 05:34 RBC 3.48 M/mm3 (3.65-5.03) L 04/20/18 05:34 Hgb 10.5 gm/dl (11.8-15.2) L 04/20/18 05:34 Hct 32.0 % (35.5-45.6) L 04/20/18 05:34 MCV 92 fl (84-94) 04/20/18 05:34 MCH 30 pg (28-32) 04/20/18 05:34 MCHC 33 % (32-34) 04/20/18 05:34 RDW 14.7 % (13.2-15.2) 04/20/18 05:34 Plt Count 139 K/mm3 (140-440) L 04/20/18 05:34 Lymph % (Auto) Electric Crane Operator 04/20/18 05:34 Lymph # Electric Crane Operator 04/20/18 05:34 Add Manual Diff Complete 04/20/18 05:34 Total Counted 100 04/20/18 05:34 Seg Neutrophils % Electric Crane Operator 04/20/18 05:34 Seg Neuts % (Manual) 39.0 % (40.0-70.0) L 04/20/18 05:34 Band Neutrophils % 0 % 04/20/18 05:34 Lymphocytes % (Manual) 57.0 % (13.4-35.0) H 04/20/18 05:34 Reactive Lymphs % (Man) 0 % 04/20/18 05:34 Monocytes % (Manual) 3.0 % (0.0-7.3) 04/20/18 05:34 Eosinophils % (Manual) 0 % (0.0-4.3) 04/20/18 05:34 Basophils % (Manual) 1.0 % (0.0-1.8) 04/20/18 05:34 Metamyelocytes % 0 % 04/20/18 05:34 Myelocytes % 0 % 04/20/18 05:34 Promyelocytes % 0 % 04/20/18 05:34 Blast Cells % 0 % 04/20/18 05:34 Nucleated RBC % Not Reportable 04/20/18 05:34 Seg Neutrophils # Man 3.0 K/mm3 (1.8-7.7) 04/20/18 05:34 Band Neutrophils # 0.0 K/mm3 04/20/18 05:34 Lymphocytes # (Manual) 4.4 K/mm3 (1.2-5.4) 04/20/18 05:34 Abs React Lymphs (Man) 0.0 K/mm3 04/20/18 05:34 Monocytes # (Manual) 0.2 K/mm3 (0.0-0.8) 04/20/18 05:34 Eosinophils # (Manual) 0.0 K/mm3 (0.0-0.4) 04/20/18 05:34 Basophils # (Manual) 0.1 K/mm3 (0.0-0.1) 04/20/18 05:34 Metamyelocytes # 0.0 K/mm3 04/20/18 05:34 Myelocytes # 0.0 K/mm3 04/20/18 05:34 Promyelocytes # 0.0 K/mm3 04/20/18 05:34 Blast Cells # 0.0 K/mm3 04/20/18 05:34 WBC Morphology Not Reportable 04/20/18 05:34 Hypersegmented Neuts Not Reportable 04/20/18 05:34 Hyposegmented Neuts Not Reportable 04/20/18 05:34 Hypogranular Neuts Not Reportable 04/20/18 05:34 Smudge Cells Not Reportable 04/20/18 05:34 Toxic Granulation Not Reportable 04/20/18 05:34 Toxic Vacuolation Not Reportable 04/20/18 05:34 Dohle Bodies Not Reportable 04/20/18 05:34 Pelger-Huet Anomaly Not Reportable 04/20/18 05:34 Rosario Rods Not Reportable 04/20/18 05:34 Platelet Estimate Cons 04/20/18 05:34 Clumped Platelets Not Reportable 04/20/18 05:34 Plt Clumps, EDTA Not Reportable 04/20/18 05:34 Large Platelets Not Reportable 04/20/18 05:34 Giant Platelets Not Reportable 04/20/18 05:34 Platelet Satelliting Not Reportable 04/20/18 05:34 Plt Morphology Comment Not Reportable 04/20/18 05:34 RBC Morphology Not Reportable 04/20/18 05:34 Dimorphic RBCs Not Reportable 04/20/18 05:34 Polychromasia Not Reportable 04/20/18 05:34 Hypochromasia Not Reportable 04/20/18 05:34 Poikilocytosis Not Reportable 04/20/18 05:34 Anisocytosis 1+ 04/20/18 05:34 Microcytosis Not Reportable 04/20/18 05:34 Macrocytosis Not Reportable 04/20/18 05:34 Spherocytes Not Reportable 04/20/18 05:34 Pappenheimer Bodies Not Reportable 04/20/18 05:34 Sickle Cells Not Reportable 04/20/18 05:34 Target Cells Not Reportable 04/20/18 05:34 Tear Drop Cells Not Reportable 04/20/18 05:34 Ovalocytes Not Reportable 04/20/18 05:34 Helmet Cells Not Reportable 04/20/18 05:34 [place] Bodies Not Reportable 04/20/18 05:34 [place] Rings Not Reportable 04/20/18 05:34 [place] Cells Not Reportable 04/20/18 05:34 Bite Cells Not Reportable 04/20/18 05:34 Crenated Cell Not Reportable 04/20/18 05:34 Elliptocytes Not Reportable 04/20/18 05:34 Acanthocytes (Spur) Not Reportable 04/20/18 05:34 Rouleaux Not Reportable 04/20/18 05:34 Hemoglobin C Crystals Not Reportable 04/20/18 05:34 Schistocytes Not Reportable 04/20/18 05:34 Malaria parasites Not Reportable 04/20/18 05:34 Tristan Bodies Not Reportable 04/20/18 05:34 Hem Pathologist Commnt No 04/20/18 05:34 PT 13.1 Sec. (12.2-14.9) 04/06/18 20:05 INR 0.94 (0.87-1.13) 04/06/18 20:05 Sodium 129 mmol/L (137-145) L 04/10/18 04:59 Potassium 3.5 mmol/L (3.6-5.0) L 04/10/18 04:59 Chloride 90.3 mmol/L (98-107) L 04/10/18 04:59 Carbon Dioxide 22 mmol/L (22-30) 04/10/18 04:59 Anion Gap 20 mmol/L 04/10/18 04:59 BUN 7 mg/dL (9-20) L 04/10/18 04:59 Creatinine 0.5 mg/dL (0.8-1.5) L 04/10/18 04:59 Estimated GFR > 60 ml/min 04/10/18 04:59 BUN/Creatinine Ratio 14 % 04/10/18 04:59 Glucose 97 mg/dL (75-100) 04/10/18 04:59 Calcium 8.3 mg/dL (8.4-10.2) L 04/10/18 04:59 Magnesium 1.10 mg/dL (1.7-2.3) L 04/09/18 09:48 Total Bilirubin 0.50 mg/dL (0.1-1.2) 04/06/18 20:05 Direct Bilirubin < 0.2 mg/dL (0-0.2) 04/06/18 20:05 Indirect Bilirubin 0.3 mg/dL 04/06/18 20:05 AST 12 units/L (5-40) 04/06/18 20:05 ALT 13 units/L (7-56) 04/06/18 20:05 Alkaline Phosphatase 74 units/L (35-129) 04/06/18 20:05 Troponin T < 0.010 ng/mL (0.00-0.029) 04/06/18 21:38 NT-Pro-B Natriuret Pep 44.32 pg/mL (0-900) 04/06/18 20:05 Total Protein 6.2 g/dL (6.3-8.2) L 04/06/18 20:05 Albumin 3.7 g/dL (3.9-5) L 04/06/18 20:05 Albumin/Globulin Ratio 1.5 % 04/06/18 20:05 Amylase 54 units/L (27-131) 04/06/18 20:05 Lipase 46 units/L (13-60) 04/06/18 20:05 Urine Color Yellow (Yellow) 04/06/18 21:14 Urine Turbidity Slightly-cloudy (Clear) 04/06/18 21:14 Urine pH 6.0 (5.0-7.0) 04/06/18 21:14 Ur Specific Taylor 1.016 (1.003-1.030) 04/06/18 21:14 Urine Protein <15 mg/dl mg/dL (Negative) 04/06/18 21:14 Urine Glucose (UA) Neg mg/dL (Negative) 04/06/18 21:14 Urine Ketones Neg mg/dL (Negative) 04/06/18 21:14 Urine Blood Lg (Negative) 04/06/18 21:14 Urine Nitrite Neg (Negative) 04/06/18 21:14 Urine Bilirubin Neg (Negative) 04/06/18 21:14 Urine Urobilinogen < 2.0 mg/dL (<2.0) 04/06/18 21:14 Ur Leukocyte Esterase Neg (Negative) 04/06/18 21:14 Urine WBC (Auto) 4.0 /HPF (0.0-6.0) 04/06/18 21:14 Urine RBC (Auto) 37.0 /HPF (0.0-6.0) 04/06/18 21:14 U Epithel Cells (Auto) < 1.0 /HPF (0-13.0) 04/06/18 21:14 Amorphous Crystals Few 04/06/18 21:14 Urine Mucus Few /HPF 04/06/18 21:14 C. difficile Toxin A&B Negative (Negative) 04/07/18 Unknown
[2018-04-29] MEDS: HEPARIN SUB-Q SCH ×3 (06:04→21:44)
[2018-04-29] MEDS: TYLENOL PO PRN (06:04)
--- NOTE | 2018-04-29 07:17 | Progress Note ---
Assessment and Plan Assessment and plan: 63-year-old male presented to the emergency department complaining of diarrhea of one month duration. Patient is complaining of abdominal pain and nausea. CT abdomen shows colitis/prostatitis, and bladder distention Diarrhea- Resolved colitis -Treated with IV flagyl and levaquin and resolved - GI consult appreciated Patient was treated with miralax for constipation. Hyponatremia -monitor Distended bladder with mild hydronephrosis, ?neurogenic bladder - Urology consult appreciated. mcgowan removed and patient voided - FLOMAX trial Hypokalemia - Replete CLL - Per the record from [facility] - Oncology consult appreciated Deconditioning - PT recommended subacute rehabilitation DVT prophylaxis - heparin Disposition -Patient is unfunded and need Rehab placement. APS notified by our home health care social worker and came and evaluated the patient and will try to get to his families. - patient is medically stable to be discharged to SNF/Personal home care. - Check intermittent labs while awaiting placement History Interval history: Patient was seen and evaluated this morning, no diarrhea. Sitting down on the chair discussing with case mangmarcos at the time of my visit. more awake today and corporative . No new complaints reported to me by nursing staff. Hospitalist Physical - Physical exam Narrative exam: Not in cardiopulmonary distress. Appears lethargic The patient appeared well nourished and normally developed. Vital signs as documented. Head exam is unremarkable. No scleral icterus . Neck is without jugular venous distension, thyromegaly, or carotid bruits. Lungs are clear to auscultation. Cardiac exam reveals regular rate and Rhythm. Abdominal exam reveals normal bowel sounds. Extremities are nonedematous and both femoral and pedal pulses are normal. 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 No focal weakness. - Constitutional Vitals: Temp Pulse Resp BP Pulse Ox 97.5 F L 75 16 99/62 99 04/29/18 05:11 04/29/18 05:11 04/29/18 05:11 04/29/18 05:11 04/29/18 05:11 General appearance: Present: no acute distress Results - Labs CBC & Chem 7: 04/20/18 05:34 04/10/18 04:59 Labs: Laboratory Last Values WBC 7.8 K/mm3 (4.5-11.0) 04/20/18 05:34 RBC 3.48 M/mm3 (3.65-5.03) L 04/20/18 05:34 Hgb 10.5 gm/dl (11.8-15.2) L 04/20/18 05:34 Hct 32.0 % (35.5-45.6) L 04/20/18 05:34 MCV 92 fl (84-94) 04/20/18 05:34 MCH 30 pg (28-32) 04/20/18 05:34 MCHC 33 % (32-34) 04/20/18 05:34 RDW 14.7 % (13.2-15.2) 04/20/18 05:34 Plt Count 139 K/mm3 (140-440) L 04/20/18 05:34 Lymph % (Auto) Principal Ios Developer 04/20/18 05:34 Lymph # Principal Ios Developer 04/20/18 05:34 Add Manual Diff Complete 04/20/18 05:34 Total Counted 100 04/20/18 05:34 Seg Neutrophils % Principal Ios Developer 04/20/18 05:34 Seg Neuts % (Manual) 39.0 % (40.0-70.0) L 04/20/18 05:34 Band Neutrophils % 0 % 04/20/18 05:34 Lymphocytes % (Manual) 57.0 % (13.4-35.0) H 04/20/18 05:34 Reactive Lymphs % (Man) 0 % 04/20/18 05:34 Monocytes % (Manual) 3.0 % (0.0-7.3) 04/20/18 05:34 Eosinophils % (Manual) 0 % (0.0-4.3) 04/20/18 05:34 Basophils % (Manual) 1.0 % (0.0-1.8) 04/20/18 05:34 Metamyelocytes % 0 % 04/20/18 05:34 Myelocytes % 0 % 04/20/18 05:34 Promyelocytes % 0 % 04/20/18 05:34 Blast Cells % 0 % 04/20/18 05:34 Nucleated RBC % Not Reportable 04/20/18 05:34 Seg Neutrophils # Man 3.0 K/mm3 (1.8-7.7) 04/20/18 05:34 Band Neutrophils # 0.0 K/mm3 04/20/18 05:34 Lymphocytes # (Manual) 4.4 K/mm3 (1.2-5.4) 04/20/18 05:34 Abs React Lymphs (Man) 0.0 K/mm3 04/20/18 05:34 Monocytes # (Manual) 0.2 K/mm3 (0.0-0.8) 04/20/18 05:34 Eosinophils # (Manual) 0.0 K/mm3 (0.0-0.4) 04/20/18 05:34 Basophils # (Manual) 0.1 K/mm3 (0.0-0.1) 04/20/18 05:34 Metamyelocytes # 0.0 K/mm3 04/20/18 05:34 Myelocytes # 0.0 K/mm3 04/20/18 05:34 Promyelocytes # 0.0 K/mm3 04/20/18 05:34 Blast Cells # 0.0 K/mm3 04/20/18 05:34 WBC Morphology Not Reportable 04/20/18 05:34 Hypersegmented Neuts Not Reportable 04/20/18 05:34 Hyposegmented Neuts Not Reportable 04/20/18 05:34 Hypogranular Neuts Not Reportable 04/20/18 05:34 Smudge Cells Not Reportable 04/20/18 05:34 Toxic Granulation Not Reportable 04/20/18 05:34 Toxic Vacuolation Not Reportable 04/20/18 05:34 Dohle Bodies Not Reportable 04/20/18 05:34 Pelger-Huet Anomaly Not Reportable 04/20/18 05:34 Rosario Rods Not Reportable 04/20/18 05:34 Platelet Estimate Cons 04/20/18 05:34 Clumped Platelets Not Reportable 04/20/18 05:34 Plt Clumps, EDTA Not Reportable 04/20/18 05:34 Large Platelets Not Reportable 04/20/18 05:34 Giant Platelets Not Reportable 04/20/18 05:34 Platelet Satelliting Not Reportable 04/20/18 05:34 Plt Morphology Comment Not Reportable 04/20/18 05:34 RBC Morphology Not Reportable 04/20/18 05:34 Dimorphic RBCs Not Reportable 04/20/18 05:34 Polychromasia Not Reportable 04/20/18 05:34 Hypochromasia Not Reportable 04/20/18 05:34 Poikilocytosis Not Reportable 04/20/18 05:34 Anisocytosis 1+ 04/20/18 05:34 Microcytosis Not Reportable 04/20/18 05:34 Macrocytosis Not Reportable 04/20/18 05:34 Spherocytes Not Reportable 04/20/18 05:34 Pappenheimer Bodies Not Reportable 04/20/18 05:34 Sickle Cells Not Reportable 04/20/18 05:34 Target Cells Not Reportable 04/20/18 05:34 Tear Drop Cells Not Reportable 04/20/18 05:34 Ovalocytes Not Reportable 04/20/18 05:34 Helmet Cells Not Reportable 04/20/18 05:34 [place] Bodies Not Reportable 04/20/18 05:34 Babb Rings Not Reportable 04/20/18 05:34 Sahil Cells Not Reportable 04/20/18 05:34 Bite Cells Not Reportable 04/20/18 05:34 Crenated Cell Not Reportable 04/20/18 05:34 Elliptocytes Not Reportable 04/20/18 05:34 Acanthocytes (Spur) Not Reportable 04/20/18 05:34 Rouleaux Not Reportable 04/20/18 05:34 Hemoglobin C Crystals Not Reportable 04/20/18 05:34 Schistocytes Not Reportable 04/20/18 05:34 Malaria parasites Not Reportable 04/20/18 05:34 Tristan Bodies Not Reportable 04/20/18 05:34 Hem Pathologist Commnt No 04/20/18 05:34 PT 13.1 Sec. (12.2-14.9) 04/06/18 20:05 INR 0.94 (0.87-1.13) 04/06/18 20:05 Sodium 129 mmol/L (137-145) L 04/10/18 04:59 Potassium 3.5 mmol/L (3.6-5.0) L 04/10/18 04:59 Chloride 90.3 mmol/L (98-107) L 04/10/18 04:59 Carbon Dioxide 22 mmol/L (22-30) 04/10/18 04:59 Anion Gap 20 mmol/L 04/10/18 04:59 BUN 7 mg/dL (9-20) L 04/10/18 04:59 Creatinine 0.5 mg/dL (0.8-1.5) L 04/10/18 04:59 Estimated GFR > 60 ml/min 04/10/18 04:59 BUN/Creatinine Ratio 14 % 04/10/18 04:59 Glucose 97 mg/dL (75-100) 04/10/18 04:59 Calcium 8.3 mg/dL (8.4-10.2) L 04/10/18 04:59 Magnesium 1.10 mg/dL (1.7-2.3) L 04/09/18 09:48 Total Bilirubin 0.50 mg/dL (0.1-1.2) 04/06/18 20:05 Direct Bilirubin < 0.2 mg/dL (0-0.2) 04/06/18 20:05 Indirect Bilirubin 0.3 mg/dL 04/06/18 20:05 AST 12 units/L (5-40) 04/06/18 20:05 ALT 13 units/L (7-56) 04/06/18 20:05 Alkaline Phosphatase 74 units/L (35-129) 04/06/18 20:05 Troponin T < 0.010 ng/mL (0.00-0.029) 04/06/18 21:38 NT-Pro-B Natriuret Pep 44.32 pg/mL (0-900) 04/06/18 20:05 Total Protein 6.2 g/dL (6.3-8.2) L 04/06/18 20:05 Albumin 3.7 g/dL (3.9-5) L 04/06/18 20:05 Albumin/Globulin Ratio 1.5 % 04/06/18 20:05 Amylase 54 units/L (27-131) 04/06/18 20:05 Lipase 46 units/L (13-60) 04/06/18 20:05 Urine Color Yellow (Yellow) 04/06/18 21:14 Urine Turbidity Slightly-cloudy (Clear) 04/06/18 21:14 Urine pH 6.0 (5.0-7.0) 04/06/18 21:14 Ur Specific [place] 1.016 (1.003-1.030) 04/06/18 21:14 Urine Protein <15 mg/dl mg/dL (Negative) 04/06/18 21:14 Urine Glucose (UA) Neg mg/dL (Negative) 04/06/18 21:14 Urine Ketones Neg mg/dL (Negative) 04/06/18 21:14 Urine Blood Lg (Negative) 04/06/18 21:14 Urine Nitrite Neg (Negative) 04/06/18 21:14 Urine Bilirubin Neg (Negative) 04/06/18 21:14 Urine Urobilinogen < 2.0 mg/dL (<2.0) 04/06/18 21:14 Ur Leukocyte Esterase Neg (Negative) 04/06/18 21:14 Urine WBC (Auto) 4.0 /HPF (0.0-6.0) 04/06/18 21:14 Urine RBC (Auto) 37.0 /HPF (0.0-6.0) 04/06/18 21:14 U Epithel Cells (Auto) < 1.0 /HPF (0-13.0) 04/06/18 21:14 Amorphous Crystals Few 04/06/18 21:14 Urine Mucus Few /HPF 04/06/18 21:14 C. difficile Toxin A&B Negative (Negative) 04/07/18 Unknown
[2018-04-29] MEDS ORDERED: [UNRECOGNIZED DRUG - OTHER] PO SCH (10:00)
[2018-04-29] MEDS ORDERED: ZOLOFT 50 MG PO SCH (10:00)
--- NOTE | 2018-04-29 10:34 | Progress Note ---
Assessment and Plan - Patient Problems (1) CLL (chronic lymphocytic leukemia) Onset Date: ~04/17/18 Current Visit: Yes Status: Acute Plan to address problem: See notes above. Subjective Date of service: 04/29/18 Principal diagnosis: h/o CLL Interval history: I am covering DR Lujan/PM. Patient seen, resting in bed, labs reviewed, and stable for CLL, No new issues at this time.Will continue to monitor along with you. Objective - Constitutional Vitals: Vital Signs - 12hr 04/28/18 04/28/18 04/29/18 23:31 23:32 05:11 Temperature 97.7 F 97.7 F 97.5 F L Pulse Rate 82 79 75 Respiratory 16 16 16 Rate Blood Pressure 83/56 99/62 O2 Sat by Pulse 100 100 99 Oximetry 04/29/18 08:08 Temperature Pulse Rate Respiratory Rate Blood Pressure O2 Sat by Pulse 98 Oximetry General appearance: Present: no acute distress, well-nourished - EENT Eyes: PERRL, EOM intact ENT: hearing intact, clear oral mucosa Ears: bilateral: normal - Neck Neck: supple, normal ROM - Respiratory Respiratory effort: normal Respiratory: bilateral: CTA - Breasts Breasts: deferred - Cardiovascular Rhythm: regular Heart Sounds: Present: S1 & S2. Absent: gallop, rub Extremities: pulses intact, No edema, normal color, Full ROM - Gastrointestinal General gastrointestinal: Present: soft, non-tender, non-distended, normal bowel sounds Rectal Exam: deferred - Genitourinary Male genitourinary: deferred - Integumentary Integumentary: clear, warm, dry - Musculoskeletal Musculoskeletal: 1, strength equal bilaterally - Neurologic Neurologic: moves all extremities - Psychiatric Psychiatric: memory intact, appropriate mood/affect, intact judgment & insight - Labs CBC & Chem 7: 04/20/18 05:34 04/10/18 04:59
[2018-04-29] MEDS: ZOLOFT PO SCH (12:13)
[2018-04-29] MEDS: FLOMAX PO SCH (12:13)
[2018-04-29] MEDS: MIRALAX 3350 PO SCH ×2 (12:14→21:44)
[2018-04-29] MEDS: COLACE PO SCH (16:46)
[2018-04-30] MEDS: HEPARIN SUB-Q SCH ×2 (06:21→13:14)
[2018-04-30 06:40] LABS: Hematocrit 32.2 % (35.5-45.6); Hemoglobin 10.8 gm/dl (11.8-15.2); Mean Corpuscular HGB Conc 33 % (32-34); Mean Corpuscular Hemoglobin 31 pg (28-32); Mean Corpuscular Volume 92 fl (84-94); Platelet Count 124 K/mm3 (140-440); Red Blood Count 3.49 M/mm3 (3.65-5.03)
[2018-04-30 07:01] LABS: BUN/Creatinine Ratio 23; Blood Urea Nitrogen 9 mg/dL (9-20); Calcium 9.1 mg/dL (8.4-10.2); Hemolysis Index 6
[2018-04-30] MEDS: MIRALAX 3350 PO SCH (10:10)
[2018-04-30] MEDS: COLACE PO SCH (10:12)
[2018-04-30] MEDS: ZOLOFT PO SCH (10:12)
[2018-04-30] MEDS: FLOMAX PO SCH (10:13)
[2018-04-30 13:38] VITALS: BP 109/72
== END 2018-04-30 17:32 | DRG 392 ==
LOC: ED 19:32 → 3A 04-07 04:53 → OBSVTOIN 04-09 10:06
PROVIDERS: ADMIT Internal Medicine; ATTEND Internal Medicine
DX: A09 Infectious gastroenteritis and colitis, unspecified (principal); E87.1 Hypo-osmolality and hyponatremia; N13.30 Unspecified hydronephrosis; C91.10 Chronic lymphocytic leukemia of B-cell type not having achieved remission; K59.00 Constipation, unspecified; N41.9 Inflammatory disease of prostate, unspecified; N32.89 Other specified disorders of bladder; E87.6 Hypokalemia; D64.9 Anemia, unspecified; D69.6 Thrombocytopenia, unspecified; N40.1 Benign prostatic hyperplasia with lower urinary tract symptoms; R33.8 Other retention of urine; Z79.899 Other long term (current) drug therapy
CPT/HCPCS: 36415; 71045; 74018; 74177; 80048; 80074; 81001; 82150; 83690; 83735; 83880; 84132; 84484; 85007; 85025; 85027; 85610; 87040; 87086; 87177; 87324; 93005; 93010; C9113; G0378; J1644; J1956; J2405; J7030; J7040; Q9967